=== PATIENT | male | born 1945 | race Caucasian/White ===

== ENCOUNTER → 2019-12-26 12:17 | Outpatient (BNVA) | payer MEDICARE, BC, SELFPAY | PROVIDERS: Family Provider Family Medicine; PCP Family Medicine; Referring Provider Family Medicine; Visit Provider Family Medicine | DX: E78.00 Pure hypercholesterolemia, unspecified (principal); E03.9 Hypothyroidism, unspecified; I10 Essential (primary) hypertension; E11.9 Type 2 diabetes mellitus without complications; I25.810 Atherosclerosis of coronary artery bypass graft(s) without angina pectoris | CPT/HCPCS: 80053; 80061; 83036; 84443; 85025 ==

== ENCOUNTER → 2021-01-11 10:13 | Outpatient (BNVA) | payer MEDICARE, BC, SELFPAY | PROVIDERS: Family Provider Family Medicine; PCP Family Medicine; Visit Provider Family Medicine | DX: E03.9 Hypothyroidism, unspecified (principal); E11.9 Type 2 diabetes mellitus without complications; E78.00 Pure hypercholesterolemia, unspecified; I10 Essential (primary) hypertension; Z00.00 Encounter for general adult medical examination without abnormal findings; Z68.32 Body mass index [BMI] 32.0-32.9, adult | CPT/HCPCS: 80053; 80061; 83036; 84443; 85025 ==

== ENCOUNTER → 2021-08-10 10:29 | Outpatient (BNVA) | payer MEDICARE, BC, SELFPAY | PROVIDERS: Family Provider Family Medicine; PCP Family Medicine; Visit Provider Family Medicine | DX: I10 Essential (primary) hypertension (principal); E11.9 Type 2 diabetes mellitus without complications; E03.9 Hypothyroidism, unspecified; E78.00 Pure hypercholesterolemia, unspecified | CPT/HCPCS: 80053; 83036; 85025 ==

== ENCOUNTER 2021-11-09 08:41 | Emergency (ER) | payer MEDICARE, BC, SELFPAY ==
[2021-11-09 08:48] VITALS: BP 88/56; PULSE 55; RESP 18; O2SAT 99; BMI 29.5
[2021-11-09 09:29] VITALS: BP 119/72; PULSE 45; RESP 15; O2SAT 96
--- NOTE | 2021-11-09 09:34 | ECG_ITS ---
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 Measurements Intervals [place] Rate: 50 P: MD: QRS: 12 QRSD: 106 T: 166 QT: 444 QTc: 409 Interpretive Statements ATRIAL FIBRILLATION WITH SLOW VENTRICULAR RESPONSE LOW QRS VOLTAGE IN PRECORDIAL LEADS [QRS DEFLECTION < 1.0 mV IN CHEST LEADS] POSSIBLE RIGHT VENTRICULAR CONDUCTION DELAY [RSR (QR) IN V1/V2] ANTERIOR MYOCARDIAL INFARCTION , PROBABLY OLD [40+ ms Q WAVE AND/OR ST/T ABNORMALITY IN V3/V4] Compared to ECG 10/01/2017 15:22:03 Low QRS voltage now present Sinus rhythm no longer present Myocardial infarct finding still present Electronically Signed On 11-10-2021 5:33:03 AOC AIRSPACE CONTROL OFFICER by Cherry Toscano M.D. [id number]
--- NOTE | 2021-11-09 09:34 | XR_ITS ---
WS: [id number] PORTABLE CHEST HISTORY: chest pain COMPARISON: 10/01/2017 Lungs are clear and well expanded. No pleural effusion or pneumothorax. Cardiac size: Normal. Mediastinum/Aorta: Normal mediastinum. No osseous abnormality seen. XR/XR chest 1V portable [id number] IMPRESSION: Unremarkable portable chest.
[2021-11-09 09:56] LABS: Basophils # 0.1 10^3/uL (0.0-0.1); Basophils % 0.8 %; Eosinophils # 0.1 10^3/uL (0.0-0.8); Eosinophils % 0.8 %; Hematocrit 38.3 % (42.0-52.0); Hemoglobin 12.4 g/dL (11.7-16.6); Lymphocytes # 1.4 10^3/uL (0.8-4.8); Lymphocytes % 13.2 %; Mean Corpuscular HGB Conc 32.4 g/dL (30.0-36.0); Mean Corpuscular Hemoglobin 29.4 pg (28.0-34.0); Mean Corpuscular Volume 90.8 fl (80-94); Mean Platelet Volume 12.1 fL (7.4-10.4); Monocytes # 0.9 10^3/uL (0.2-0.9); Monocytes % 8.2 %; Neutrophils # 8.13 10^3/uL (1.8-7.7); Neutrophils % 76.3 %; Nucleated Red Blood Cells % 0 %; Platelet Count 186 10^3/cmm (130-400); Red Blood Count 4.22 10^6/uL (4.1-5.3); Red Cell Distribution Width 13.6 % (12.1-15.1); White Blood Count 10.6 10^3/uL (4.0-10.0)
[2021-11-09] MEDS: aspirin 81 mg Chew Tablet 324 MG PO (10:00)
[2021-11-09 10:22] LABS: Troponin(5th) Baseline 67 ng/L (0-15)
[2021-11-09 10:28] LABS: Alanine Aminotransferase 25 U/L (0-41); Albumin Level 4.2 g/dL (3.5-5.2); Alkaline Phosphatase 60 IU/L (40-130); Aspartate Amino Transferase 16 U/L (0-40); Blood Urea Nitrogen 48 mg/dL (8-23); Carbon Dioxide 21 mmol/L (22-29); Chloride 95 mmol/L (98-107); Creatine Phosphokinase 59 U/L (39-308); Globulin 2.6 g/dL (1.3-4.6); Glucose 202 mg/dL (65-115); NT Pro B Type Natriuretic Pept 3460 pg/mL (0-125); Osmolality Calculated 296 mOsm/kg (285-295); Sodium 134 mmol/L (136-145); Total Bilirubin 0.9 mg/dL (0.15-1.2); Total Protein 6.8 g/dL (6.6-8.7)
[2021-11-09 10:29] LABS: Creatinine Clr Calc Pharmacy 22.5463
[2021-11-09 10:30] LABS: Anion Gap 22.9 (5-19); Potassium 4.9 mmol/L (3.5-5.1)
--- NOTE | 2021-11-09 11:34 | ECG_ITS ---
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 Measurements Intervals [place] Rate: 45 P: 73 MI: 179 QRS: -20 QRSD: 103 T: 170 QT: 464 QTc: 403 Interpretive Statements SINUS BRADYCARDIA WITH SINUS ARRHYTHMIA POSSIBLE RIGHT VENTRICULAR CONDUCTION DELAY [RSR (QR) IN V1/V2] POSSIBLE ANTERIOR MYOCARDIAL INFARCTION , PROBABLY OLD MODERATE T-WAVE ABNORMALITY, CONSIDER LATERAL ISCHEMIA Compared to ECG 11/09/2021 08:57:58 T-wave abnormality now present Possible ischemia now present Atrial fibrillation no longer present Myocardial infarct finding still present Electronically Signed On 11-09-2021 13:05:07 VOICE TEACHER by Cherry Toscano M.D. [id number]
--- NOTE | 2021-11-09 11:41 | ED_ITS ---
HPI - Chest Pain General: Chief Complaint: Chest Pain Stated Complaint: Chest Discomfort, Weakness, Dizziness Time Seen by Provider: 11/09/21 09:17 History of Present Illness: HPI narrative: 76-year-old male presents to the emergency room with complaint of vague chest discomfort. Worse when exerts himself associated with some shortness of breath no recent medication changes. Patient has a history of hypertension and diabetes mellitus. MD complaint: chest discomfort Pertinent past history: coronary artery disease Onset (ago): day(s) Timing of current episode: episodic Onset: during exertion Pain location: left chest Pain radiation: none Severity: mild Quality: aching Relieving factors: nothing Exacerbating factors: nothing Associated symptoms: Deny abdominal pain, diaphoresis, dyspnea, fever(s), leg edema, nausea, palpitations, sense of impending doom, syncope or vomiting Treatment prior to arrival: none Review of Systems Const: Denies: fever(s) or diaphoresis ENMT: Denies: throat pain, ear or mastoid pain, nasal discharge or nasal congestion Card: Denies: palpitations or syncope Resp: Denies: dyspnea GI: Denies: abdominal pain, nausea or vomiting : Denies: flank pain, dysuria, urinary frequency or urinary urgency Skin/Breast: Denies: rash or pruritus PFSH ED PFSH: Medical History Acquired hypothyroidism Diabetes Hypercholesteremia Hypertension Surgical History History of coronary angioplasty Social History Smoking and tobacco status: never smoked Alcohol intake: never Physical Exam Const: COMMON NORMALS: no acute distress GENERAL APPEARANCE: cooperative and comfortable ORIENTATION/CONSCIOUSNESS: Yes awake, Yes oriented to person, Yes oriented to place and Yes oriented to time HENMT: COMMON NORMALS: normocephalic, atraumatic and hearing grossly normal bilaterally HEAD & SCALP: normocephalic and atraumatic Resp: COMMON NORMALS: normal respiratory effort, No retractions, No use of accessory muscles and clear to auscultation bilaterally AUSCULTATION: clear to auscultation bilaterally Cardio: COMMON NORMALS: No murmurs present (Cardio) RATE: bradycardic GI: COMMON NORMALS: Soft to palpation and No hepatosplenomegaly present AUSCULTATION: Yes normoactive bowel sounds PALPATION: Yes Soft to palpation, No Tenderness to palpation present (GI), No Guarding due to palpation present (GI) and Yes No hepatosplenomegaly present Extremity: COMMON NORMALS: normal to inspection, capillary refill normal, no clubbing, cyanosis or edema, no calf tenderness and no pedal edema Neuro: SENSORIUM/ORIENTATION: Yes oriented to person, Yes oriented to place and Yes oriented to time Skin: COMMON NORMALS: no rashes or lesions noted GENERAL SKIN EXAM: no rashes or lesions noted Course Vital Signs: Vital signs: Vital Signs Pulse Rate 45 L 11/09/21 09:29 Respiratory Rate 15 11/09/21 09:29 Blood Pressure 119/72 11/09/21 09:29 Pulse Oximetry 96 11/09/21 09:29 MDM - Chest Pain MDM Narrative: Medical decision making narrative: Patient is having medication side effects as well as acute kidney injury. Much of this is centered around his medications. Were going to decrease his carvedilol to 3.125 twice daily decrease his metformin to 500 twice daily stop his lisinopril hydrochlorothiazide and and instead put him on lisinopril 10 mg once daily. Long discussion of the patient and his family that in most occasions we would admit him to observation watch him overnight and make these medication changes and reevaluate in the morning. However there is a critical shortage of beds and he would end up staying overnight in the emergency room. We discussed outpatient treatment options to accomplish the same thing and he would prefer to do that I also contacted his primary care doctor Dr. Carranza and we discussed that we are both in agreement with the medication changes and he confirms that Dr. Carranza would be able to follow-up with the patient within the next day or 2. Reviewed the entire plan of the patiently wrote out the medication changes on his discharge instructions he expresses understanding he is to return if he has any further problems. Lab Data: Labs: Lab Results 11/09/21 11/09/21 11/09/21 09:40 09:40 09:40 WBC 10.6 10^3/uL H 10 ^3/uL (4.0-10.0) RBC 4.22 10^6/uL 10^6 /uL (4.1-5.3) Hgb 12.4 g/dL g/dL (11.7-16.6) Hct 38.3 % L % (42.0-52.0) MCV 90.8 fl fl (80-94) MCH 29.4 pg pg (28.0-34.0) MCHC 32.4 g/dL g/dL (30.0-36.0) RDW 13.6 % % (12.1-15.1) Plt Count 186 10^3/cmm 10^3 /cmm (130-400) MPV 12.1 fL H fL (7.4-10.4) Neut % (Auto) 76.3 % % Lymph % (Auto) 13.2 % % [place] % (Auto) 8.2 % % Eos % (Auto) 0.8 % % Baso % (Auto) 0.8 % % Neut # (Auto) 8.13 10^3/uL H 10 ^3/uL (1.8-7.7) Lymph # (Auto) 1.4 10^3/uL 10^3/ uL (0.8-4.8) [place] # (Auto) 0.9 10^3/uL 10^3/ uL (0.2-0.9) Eos # (Auto) 0.1 10^3/uL 10^3/ uL (0.0-0.8) Baso # (Auto) 0.1 10^3/uL 10^3/ uL (0.0-0.1) Nucleated RBC % (a uto) 0 % % Nucleated RBCs # 0.0 /100WBC /100W BC Sodium 134 mmol/L L mmol /L (136-145) Potassium 4.9 mmol/L mmol/L (3.5-5.1) Chloride 95 mmol/L L mmol/ L (98-107) Carbon Dioxide 21 mmol/L L mmol/ L (22-29) Anion Gap 22.9 H (5-19) BUN 48 mg/dL H mg/dL (8-23) Creatinine 3.2 mg/dL H mg/dL (0.7-1.2) GFR Calculation Not Reportable Glucose 202 mg/dL H mg/dL (65-115) Calculated Osmolal ity 296 mOsm/kg H mOs m/kg (285-295) Calcium 9.0 mg/dL mg/dL (8.5-10.5) Total Bilirubin 0.9 mg/dL mg/dL (0.15-1.2) AST 16 U/L U/L (0-40) ALT 25 U/L U/L (0-41) Alkaline Phosphata se 60 IU/L IU/L (40-130) Creatine Kinase 59 U/L U/L (39-308) Troponin T Baselin e 67 ng/L H ng/L (0-15) Troponin T 120 Min [place] Delta Troponin T NT-Pro-B Natriuret Pep 3460 pg/mL H pg/m L (0-125) Total Protein 6.8 g/dL g/dL (6.6-8.7) Albumin 4.2 g/dL g/dL (3.5-5.2) Globulin 2.6 g/dL g/dL (1.3-4.6) 11/09/21 11:43 WBC RBC Hgb Hct MCV MCH MCHC RDW Plt Count MPV Neut % (Auto) Lymph % (Auto) [place] % (Auto) Eos % (Auto) Baso % (Auto) Neut # (Auto) Lymph # (Auto) [place] # (Auto) Eos # (Auto) Baso # (Auto) Nucleated RBC % (a uto) Nucleated RBCs # Sodium Potassium Chloride Carbon Dioxide Anion Gap BUN Creatinine GFR Calculation Glucose Calculated Osmolal ity Calcium Total Bilirubin AST ALT Alkaline Phosphata se Creatine Kinase Troponin T Baselin e Troponin T 120 Min [place] 64.36 ng/L H ng/L (0-15) Delta Troponin T -2.64 ABS# L ABS# (0-10) NT-Pro-B Natriuret Pep Total Protein Albumin Globulin Discharge Plan Discharge Patient Disposition: Home Clinical Impression: Medication side effects, Bradycardia, THAI (acute kidney injury) Diabetes Qualifiers: Diabetes mellitus type: type 2 Diabetes mellitus extermination inspector insulin use: without extermination inspector use Diabetes mellitus complication status: with hyperglycemia Qualified Code(s): E11.65 - Type 2 diabetes mellitus with hyperglycemia CAD (coronary artery disease) Qualifiers: Coronary Disease-Associated Artery/Lesion type: unspecified vessel or lesion type [place] vs. transplanted heart: [place] heart Associated angina: without angina Qualified Code(s): I25.10 - Atherosclerotic heart disease of [place] coronary artery without angina pectoris Condition: Stable Prescriptions: New lisinopril 10 mg tablet 10 mg PO DAILY Qty: 30 RF: 0 Changed metformin 1,000 mg tablet 500 mg PO BID Qty: 180 RF: 1 Discontinued carvedilol 6.25 mg tablet See Rx Instructions .ROUTE .COMPLEX Qty: 180 RF: 3 lisinopril-hydrochlorothiazide 20-25 mg tablet See Rx Instructions .ROUTE .COMPLEX Qty: 90 RF: 1 No Action aspirin [Adult Aspirin Regimen] 81 mg tablet,delayed release (DR/EC) 81 mg PO DAILY RF: 0 carvedilol 3.125 mg tablet 3.125 mg PO BID Qty: 180 RF: 1 glimepiride 4 mg tablet 4 mg PO BID 90 Days Qty: 180 RF: 3 levothyroxine 112 mcg tablet 112 mcg PO DAILY Qty: 90 RF: 3 sitagliptin 100 mg tablet 100 mg PO DAILY Qty: 90 RF: 3 atorvastatin 20 mg tablet 20 mg PO DAILY 90 Days Qty: 90 RF: 3 clopidogrel 75 mg tablet 75 mg PO DAILY 90 Days Qty: 90 RF: 3 Discharge Orders: Discharge ED (Routine); Ordered 11/09/21 Ordered By: Michael Caicedo Referrals: Cynthia Carranza MD [Primary Care Provider] - Discharge Diet: Usual diet Discharge Activity: Limit activity as instructed Patient Instructions: Opioid Safety Activity Restrictions/Additional Instructions: Follow-up with Dr. Carranza at his office tomorrow at 11:00. Call first thing in the morning to his office to confirm. Make the above medication changes as written. You will need to have a repeat blood testing when you see Dr. Carranza he will arrange for that. If you have any further problems return to the emergency room. Coding Level of Care Code ED Powdered Sugar Supervisor for Killian Fwd Exam Detailed
[2021-11-09] MEDS: sodium chloride 0.9% 500 ML 999 ML IV (11:59)
[2021-11-09 12:14] LABS: Troponin 5 2HR 64.36 ng/L (0-15)
[2021-11-09 12:18] LABS: Troponin 5 2HR Delta -2.64 ABS# (0-10)
== END 2021-11-09 14:47 | disposition home or self-care (01) ==
PROVIDERS: Emergency Provider Family Medicine; PCP Family Medicine
DX: E11.65 Type 2 diabetes mellitus with hyperglycemia (principal); I25.10 Atherosclerotic heart disease of native coronary artery without angina pectoris; R00.1 Bradycardia, unspecified; N17.9 Acute kidney failure, unspecified; T50.905A Adverse effect of unspecified drugs, medicaments and biological substances, initial encounter; Z79.84 Long term (current) use of oral hypoglycemic drugs; Z79.02 Long term (current) use of antithrombotics/antiplatelets; Z79.82 Long term (current) use of aspirin; I10 Essential (primary) hypertension
CPT/HCPCS: 71045; 80053; 82550; 83880; 84484; 85025; 93005; 96360; 99284; 99291; J7040

== ENCOUNTER → 2021-11-11 13:12 | Outpatient (BNVA) | payer MEDICARE, BC, SELFPAY | PROVIDERS: PCP Family Medicine; Visit Provider Family Medicine | DX: I25.10 Atherosclerotic heart disease of native coronary artery without angina pectoris (principal); I10 Essential (primary) hypertension; R00.1 Bradycardia, unspecified; E11.65 Type 2 diabetes mellitus with hyperglycemia | CPT/HCPCS: 80048; 83880; 84484; 85025 ==

== ENCOUNTER 2021-11-19 13:51 | Outpatient (CLI) | payer MEDICARE, BC, SELFPAY ==
--- NOTE | 2021-11-19 14:15 | USCV_ITS ---
Gordy Fiore Age: 76 Gender: M : 1945 Exam Date: 11/19/2021 14:18 Ordering Phys: Cynthia Carranza MD Technologist: BLANQUITA [place] [facility] [place]: CHEST PAIN ER VISIT W ELEVATED MARKERS BP: 122 / 80 HR: 55 Rhythm: Sinus Technical Quality: Adequate MEASUREMENTS (Male / Female) Normal Values 2D ECHO LV Diastolic Diameter PLAX 4.9 cm 4.2 - 5.9 / 3.9 - 5.3 cm LV Systolic Diameter PLAX 4.6 cm IVS Diastolic Thickness 0.5 cm 0.6 - 1.0 / 0.6 - 0.9 cm IVS Systolic Thickness 0.5 cm LVPW Diastolic Thickness 1.5 cm 0.6 - 1.0 / 0.6 - 0.9 cm LVPW Systolic Thickness 1.7 cm LVOT Diameter 2.0 cm LV Ejection Fraction 2D Teich 15.8 % LV Ejection Fraction MOD 2C 19.9 % LV Ejection Fraction 2C AL 19.1 % LA Diameter 3.6 cm LA Width 4.2 cm LA Height 5.3 cm RA Width 4.2 cm RA Height 4.8 cm Aorta at Sinotubular Diameter 2.6 cm M-MODE Aortic Annulus Diameter 2.4 cm LA Ao Ratio MM 1.6 MV E Point Septal Separation 1.9 cm DOPPLER AV Peak Velocity 100.0 cm/s LVOT Peak Velocity 84.3 cm/s AV Area Cont Eq vti 2.7 cm squared AV Area Cont Eq pk 2.8 cm squared MV Area PHT 5.6 cm squared Mitral E to A Ratio 3.4 MV E' Velocity 47.0 cm/s Mitral E to LV E' Lateral Ratio 17.9 TR Peak Velocity 225.9 cm/s TR Peak Gradient 20.4 mmHg TR Mean Velocity 174.6 cm/s TR Mean Gradient 13.5 mmHg TR Velocity Time Integral 69.9 cm Right Atrial Pressure 3.0 mmHg Pulmonary Artery Systolic Pressu 23.4 mmHg RV Acceleration Time 0.1 s RV Ejection Time 0.3 s RV AcT/ET 0.3 FINDINGS Left Ventricle Moderately increased left ventricular cavity size. Severely decreased left ventricular systolic function. There appeared to be mid to distal anterior apical and distal lateral wall severe hypokinesis.. Left ventricular ejection fraction is estimated at 20 %. Right Ventricle The right ventricle is normal in size and function. Right Atrium The right atrium is normal in size. Left Atrium The left atrium is normal in size. Mitral Valve Moderately thickened mitral valve. Mild mitral annular calcification. No mitral valve stenosis. Aortic Valve Severe aortic valve calcification. No aortic valve stenosis. No aortic valve regurgitation. Tricuspid Valve Structurally normal tricuspid valve without significant stenosis or regurgitation. Pulmonary artery systolic pressure is normal. Pulmonic Valve Structurally normal pulmonic valve without significant stenosis. There is no pulmonic regurgitation. Pericardium Normal pericardium without effusion. Aorta Normal ascending aorta dimension. CONCLUSIONS 1-Moderately increased left ventricular cavity size. Severely decreased left ventricular systolic function. There appeared to be mid to distal anterior apical and distal lateral wall severe hypokinesis.. Left ventricular ejection fraction is estimated at 20 %. 2-Moderately thickened mitral valve. Mild mitral annular calcification. No mitral valve stenosis. 3-Severe aortic valve calcification. No aortic valve stenosis. No aortic valve regurgitation. 4-Structurally normal tricuspid valve without significant stenosis or regurgitation. Pulmonary artery systolic pressure is normal. 5-There is no pericardial effusion. 6-Right atrial pressure is around 5 mm of mercury. 7-There are no prior echocardiogram studies to compare. Discussed results with Dr. Carranza over the phone today. Renetta Villarreal MD (Electronically Signed) Final Date: 20 November 2021 18:22 S
== END 2021-11-19 13:52 | disposition home or self-care (01) ==
LOC: RAD 13:58
PROVIDERS: PCP Family Medicine; Visit Provider Family Medicine
DX: R07.9 Chest pain, unspecified (principal); I08.0 Rheumatic disorders of both mitral and aortic valves
CPT/HCPCS: 93306

== ENCOUNTER → 2021-11-23 08:53 | Outpatient (BNVA) | payer MEDICARE, BC, SELFPAY | PROVIDERS: PCP Family Medicine; Visit Provider Family Medicine | DX: I25.10 Atherosclerotic heart disease of native coronary artery without angina pectoris (principal); N17.9 Acute kidney failure, unspecified; I10 Essential (primary) hypertension | CPT/HCPCS: 80053; 83880; 84484; 85025 ==

== ENCOUNTER → 2021-12-02 09:50 | Outpatient (BNVA) | payer MEDICARE, BC, SELFPAY | PROVIDERS: PCP Family Medicine; Referring Provider Internal Medicine Cardiovascular Disease; Visit Provider Internal Medicine Cardiovascular Disease | DX: I50.9 Heart failure, unspecified (principal); R06.02 Shortness of breath; Z20.822 Contact with and (suspected) exposure to COVID-19 | CPT/HCPCS: 80048; 85025; 85610; 87635 ==

== ENCOUNTER 2021-12-04 11:54 | Inpatient (IN) | payer MEDICARE, BC, SELFPAY ==
[2021-12-04] VITALS (80 sets, daily range): BP systolic 101–153; BP diastolic 58–100; PULSE 60–107; RESP 10–42; TEMP 36.3; O2SAT 89–100; BMI 34.4
--- NOTE | 2021-12-04 11:59 | XRR_ITS ---
PROCEDURE INFORMATION: Exam: XR Chest Exam date and time: 12/04/2021 11:59 AM Age: 76 years old Clinical indication: Angina pectoris; Patient HX: Chest pain TECHNIQUE: Imaging protocol: XR of the chest. Views: 1 view. COMPARISON: CR XR chest 1V portable [id number] 11/09/2021 10:09 AM FINDINGS: Lungs: Unremarkable. No consolidation. Pleural spaces: Unremarkable. No pleural effusion. No pneumothorax. Heart/Mediastinum: Unremarkable. No cardiomegaly. Bones/joints: Unremarkable. XR/XR chest 1V portable [id number] IMPRESSION: No acute findings.
--- NOTE | 2021-12-04 11:59 | ECG_ITS ---
[facility] Test Date: 2021-12-04 Pat Name: Gordy Fiore Department: Room: Gender: Male Video Manager: : 1945 Requested By: Madi Meade Order Number: [id number] Antonio MD: MALA TINEO Measurements Intervals [place] Rate: 102 P: [place]: QRS: -52 QRSD: 122 T: 125 QT: 341 QTc: 446 Interpretive Statements ATRIAL FIBRILLATION WITH RAPID VENTRICULAR RESPONSE POSSIBLE RIGHT VENTRICULAR CONDUCTION DELAY [RSR (QR) IN V1/V2] POSSIBLE ANTERIOR MYOCARDIAL INFARCTION , OF INDETERMINATE AGE [30 ms Q WAVE IN V3/V4, OR R < 0.2 mV IN V4] INFERIOR MYOCARDIAL INFARCTION , PROBABLY OLD [40+ ms Q WAVE AND/OR ST/T ABNORMALITY IN II/aVF] Compared to ECG 11/09/2021 11:17:54 Sinus bradycardia no longer present Sinus arrhythmia no longer present T-wave abnormality no longer present Possible ischemia no longer present Myocardial infarct finding still present Electronically Signed On 12-04-2021 17:44:38 TARGET SETTER by MALA TINEO [id number]
--- NOTE | 2021-12-04 12:13 | W.ED.CHESTPA ---
HPI - Chest Pain General: Chief Complaint: ER Hold Stated Complaint: Chest Pain Time Seen by Provider: 12/04/21 12:13 History of Present Illness: Mr Fiore is a 76-year-old gentleman with significant past medical history of hypertension, hyperlipidemia, hypothyroidism, diabetes, PA status post PCI, and recent diagnosis of heart failure with reduced ejection fraction presenting the emergency department due to concern of chest discomfort and volume overload. He was seen after a somewhat prolonged period of lost to follow-up time by Dr. Villarreal in cardiology clinic. He was noted to show signs of volume overload and initially trialed on Lasix. He reports 20 pounds overall fluid gain which improved to about 8 pounds increased from baseline with medication however he experienced decreased renal function and so the Lasix was held. He reports over the past 2 days experiencing recurrence of fluid. He has associated shortness of breath and today experienced mild chest discomfort across the chest with radiation down the arm. No other typical associated cardiac features. He denies infectious symptoms. Symptom intensity was moderate and is currently mild. Symptoms exacerbated by exertion and laying flat. Otherwise has been compliant with medication regimen however he to has not taken his medications today. No other specific exacerbating or alleviating factors identified. Of note, the patient's decline has been relatively rapid, he reports being able to complete normal daily tasks well including going deer hunting in October without difficulty. Onset (ago): hour(s) Timing of current episode: constant Prior episodes: No (Rare prior episodes of chest pain) Onset: during rest Pain location: substernal Pain radiation: left arm Severity: moderate Quality: similar to prior PA (Similar to first PA) and other Relieving factors: nothing Exacerbating factors: nothing Context: other Associated symptoms: Reports leg edema and other Treatment prior to arrival: none Review of Systems General: Reports: 10 or more systems reviewed and unremarkable except in HPI and below PFSH ED PFSH: Medical History (Updated 12/04/21 @ 21:23 by Renetta Koo MD) Acquired hypothyroidism Atrial fibrillation CHF (congestive heart failure) Diabetes Hypercholesteremia Hypertension Hypothalamic hypothyroidism Surgical History (Updated 12/04/21 @ 21:23 by Renetta Koo MD) History of coronary angioplasty History of hand surgery Social History Smoking and tobacco status: never smoked Alcohol intake: never Physical Exam Const: COMMON NORMALS: alert GENERAL APPEARANCE: cooperative and well developed HENMT: COMMON NORMALS: normocephalic, atraumatic, external ears normal and Normal external nose present HEAD & SCALP: normocephalic and atraumatic NOSE: Normal external nose present EXTERNAL EAR: Yes external ears normal Eye: COMMON NORMALS: conjunctivae normal CONJUNCTIVA: Yes conjunctivae normal SCLERA: sclerae normal Neck/C-Spine: COMMON NORMALS: supple GENERAL: Yes trachea midline Resp: COMMON NORMALS: normal respiratory effort EFFORT & INSPECTION: Yes able to speak in complete sentences AUSCULTATION: crackles Laterality: bilateral (Trace at the bases) Cardio: RATE: tachycardic RHYTHM: abnormal rhythm OTHER: 1+ bilateral pitting edema. GI: COMMON NORMALS: Soft to palpation PALPATION: Yes Soft to palpation and No Tenderness to palpation present (GI) PERCUSSION: normal to percussion Extremity: GENERAL: Yes normal exam except as noted and No edema Neuro: COMMON NORMALS: moves all extremities SENSORIUM/ORIENTATION: Yes alert and No Orientation impaired Psych: COMMON NORMALS: mental status grossly normal and Normal thought process present THOUGHT PROCESS: Normal thought process present Course ED course: - Patient was seen and evaluated by me at bedside - Patient placed on cardiac monitors, IV access obtained - Initial evaluation notable for evidence of peripheral volume overload as noted in exam, patient becomes significantly dyspneic with minimal exertion -Aspirin ordered - Labs notable for no leukocytosis. Metabolic panel with mild derangements, creatinine 1.6. Initial troponin elevated with pending repeat troponin. BNP elevated similar to prior. - Imaging notable for no lobar consolidation - Upon serial reexamination after treatment the patient was similar - I discussed this case with Dr. Villarreal of the cardiology service. Challenging situation as the patient has combined heart failure as well as a elevated creatinine and recent intolerance to diuresis in the outpatient setting. Additionally he is experiencing chest pain and is not low risk by heart score. Therefore, patient will be admitted to medicine service for diuresis and consideration of inpatient cardiac cath. - Based on patient history, evaluation, labs, and imaging as interpreted the most likely cause of the patient's condition is chest pain, new onset atrial fibrillation, shortness of breath with evidence of acute on chronic heart failure in the context of failed outpatient management - The results of ED evaluation were discussed with the patient including plan for admission due to requirement for level of care not available if discharged to prevent significant worsening/deterioration. - Admitting service was contacted and Dr Koo with hospitalist agreed to admit the patient - Patient was admitted without further deterioration or significant events. Note: Click bubbles or prepopulated irwin in note writing are used for assistance with data collection and billing and are inherently more limited than narrative and other text portions of this note. Please use narrative for additional clinical history and defer to narrative/free test for any case of contradictory information. If information appears in only free text or click bubble it should be considered present or absent as reported. Please contact note sba underwriter for clarifications of clinical information or contradictory information. MDM is a brief summary, contradictory or erroneous seeming information should be clarified and full note should be reviewed. Vital Signs: Vital signs: Vital Signs Temperature 98.4 F 12/05/21 15:21 Pulse Rate 73 12/05/21 15:21 Respiratory Rate 17 12/05/21 15:21 Blood Pressure 129/83 12/05/21 15:21 Pulse Oximetry 99 12/05/21 15:21 MDM - Chest Pain Medical Decision Making 76-year-old gentleman with history of combined heart failure with recent EF 20% as well as recent THAI secondary to attempt at outpatient diuresis presenting with increased weight gain and concern over shortness of breath with fluid overload. Patient does appear fluid overloaded on peripheral exam with 1-2+ pitting edema. Additionally patient noted to be in new onset A. fib. Discussed with cardiology. Patient to be admitted to the hospitalist service for further definitive management and consideration for cardiac cath Medical Records I reviewed the patient's medical records. Lab Data I reviewed the patient's lab results. : 12/05/21 02:15 12/05/21 02:15 Radiology Impressions Chest X-Ray 12/04/21 11:59 IMPRESSION: No acute findings. Laboratory Results WBC 9.4 10^3/uL (4.0-10.0) 12/04/21 12:57 RBC 4.24 10^6/uL (4.1-5.3) 12/04/21 12:57 Hgb 12.2 g/dL (11.7-16.6) 12/04/21 12:57 Hct 38.4 % (42.0-52.0) L 12/04/21 12:57 MCV 90.6 fl (80-94) 12/04/21 12:57 MCH 28.8 pg (28.0-34.0) 12/04/21 12:57 MCHC 31.8 g/dL (30.0-36.0) 12/04/21 12:57 RDW 13.8 % (12.1-15.1) 12/04/21 12:57 Plt Count 208 10^3/cmm (130-400) 12/04/21 12:57 MPV 12.2 fL (7.4-10.4) H 12/04/21 12:57 Neut % (Auto) 77.1 % 12/04/21 12:57 Lymph % (Auto) 13.0 % 12/04/21 12:57 Collier % (Auto) 7.3 % 12/04/21 12:57 Eos % (Auto) 1.0 % 12/04/21 12:57 Baso % (Auto) 1.0 % 12/04/21 12:57 Neut # (Auto) 7.25 10^3/uL (1.8-7.7) 12/04/21 12:57 Lymph # (Auto) 1.2 10^3/uL (0.8-4.8) 12/04/21 12:57 Collier # (Auto) 0.7 10^3/uL (0.2-0.9) 12/04/21 12:57 Eos # (Auto) 0.1 10^3/uL (0.0-0.8) 12/04/21 12:57 Baso # (Auto) 0.1 10^3/uL (0.0-0.1) 12/04/21 12:57 Nucleated RBC % (auto) 0 % 12/04/21 12:57 Nucleated RBCs # 0.0 /100WBC 12/04/21 12:57 Sodium 133 mmol/L (136-145) L 12/04/21 12:57 Potassium 3.4 mmol/L (3.5-5.1) L 12/04/21 12:57 Chloride 95 mmol/L (98-107) L 12/04/21 12:57 Carbon Dioxide 20 mmol/L (22-29) L 12/04/21 12:57 Anion Gap 21.4 (5-19) H 12/04/21 12:57 BUN 30 mg/dL (8-23) H 12/04/21 12:57 Creatinine 1.6 mg/dL (0.7-1.2) H 12/04/21 12:57 GFR Calculation Not Reportable 12/04/21 12:57 Glucose 253 mg/dL (65-115) H 12/04/21 12:57 Calculated Osmolality 291 mOsm/kg (285-295) 12/04/21 12:57 Calcium 8.5 mg/dL (8.5-10.5) 12/04/21 12:57 Magnesium 1.7 mg/dL (1.7-2.3) 12/04/21 12:57 Total Bilirubin 1.3 mg/dL (0.15-1.2) H 12/04/21 12:57 AST 27 U/L (0-40) 12/04/21 12:57 ALT 40 U/L (0-41) 12/04/21 12:57 Alkaline Phosphatase 118 IU/L (40-130) 12/04/21 12:57 Troponin T Baseline 87 ng/L (0-15) H 12/04/21 12:57 NT-Pro-B Natriuret Pep 3256 pg/mL (0-125) H 12/04/21 12:57 Total Protein 6.5 g/dL (6.6-8.7) L 12/04/21 12:57 Albumin 4.0 g/dL (3.5-5.2) 12/04/21 12:57 Globulin 2.5 g/dL (1.3-4.6) 12/04/21 12:57 Lipase 45 U/L (13-60) 12/04/21 12:57 EKG Data EKG 1: I personally reviewed and interpreted this EKG as follows: EKG interpretation date: 12/04/21 EKG interpretation time: 12:14 Interpretation: Twelve-lead EKG shows an irregular rhythm at a rate of 102. No TN interval, QRS duration 122, QTc 400. Left axis deviation. Interpretation: Atrial fibrillation versus sinus arrhythmia. Interventricular conduction delay EKG 2: I personally reviewed and interpreted this EKG as follows: EKG interpretation date: 12/04/21 EKG interpretation time: 13:55 Interpretation: Twelve-lead EKG shows an irregular rhythm at a rate of 79. No TN interval, QRS duration 122, QTc 399. Left axis deviation. Interpretation: Atrial fibrillation. Nonspecific ST segment abnormalities. Similar to prior. Discharge Plan Discharge Patient Disposition: Admitted As Inpatient Admit Provider: Renetta Koo Clinical Impression: CHF (congestive heart failure), Shortness of breath, Chest pain, Atrial fibrillation, new onset Condition: Stable Coding Level of Care Code ED Fruit Trimmer for Chg Fwd Exam Comprehensive
[2021-12-04] MEDS: aspirin 81 mg Chew Tablet 324 MG PO (12:40)
[2021-12-04 13:08] LABS: Basophils # 0.1 10^3/uL (0.0-0.1); Eosinophils # 0.1 10^3/uL (0.0-0.8); Hematocrit 38.4 % (42.0-52.0); Hemoglobin 12.2 g/dL (11.7-16.6); Lymphocytes # 1.2 10^3/uL (0.8-4.8); Mean Corpuscular HGB Conc 31.8 g/dL (30.0-36.0); Mean Corpuscular Hemoglobin 28.8 pg (28.0-34.0); Mean Corpuscular Volume 90.6 fl (80-94); Mean Platelet Volume 12.2 fL (7.4-10.4); Monocytes # 0.7 10^3/uL (0.2-0.9); Monocytes % 7.3 %; Neutrophils # 7.25 10^3/uL (1.8-7.7); Neutrophils % 77.1 %; Nucleated Red Blood Cells % 0 %; Platelet Count 208 10^3/cmm (130-400); Red Blood Count 4.24 10^6/uL (4.1-5.3); Red Cell Distribution Width 13.8 % (12.1-15.1); White Blood Count 9.4 10^3/uL (4.0-10.0)
[2021-12-04 13:32] LABS: Troponin(5th) Baseline 87 ng/L (0-15)
[2021-12-04 13:39] LABS: Alanine Aminotransferase 40 U/L (0-41); Alkaline Phosphatase 118 IU/L (40-130); Anion Gap 21.4 (5-19); Aspartate Amino Transferase 27 U/L (0-40); Blood Urea Nitrogen 30 mg/dL (8-23); Calcium 8.5 mg/dL (8.5-10.5); Carbon Dioxide 20 mmol/L (22-29); Chloride 95 mmol/L (98-107); Globulin 2.5 g/dL (1.3-4.6); Glucose 253 mg/dL (65-115); Lipase 45 U/L (13-60); NT Pro B Type Natriuretic Pept 3256 pg/mL (0-125); Osmolality Calculated 291 mOsm/kg (285-295); Potassium 3.4 mmol/L (3.5-5.1); Sodium 133 mmol/L (136-145); Total Bilirubin 1.3 mg/dL (0.15-1.2); Total Protein 6.5 g/dL (6.6-8.7)
--- NOTE | 2021-12-04 13:59 | ECG_ITS ---
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1945 Requested By: Madi Meade Order Number: [id number] Reading MD: MALA TINEO Measurements Intervals [place] Rate: 79 P: PA: QRS: -40 QRSD: 122 T: 124 QT: 365 QTc: 419 Interpretive Statements ATRIAL FIBRILLATION POSSIBLE RIGHT VENTRICULAR CONDUCTION DELAY [RSR (QR) IN V1/V2] POSSIBLE ANTERIOR MYOCARDIAL INFARCTION , OF INDETERMINATE AGE [30 ms Q WAVE IN V3/V4, OR R < 0.2 mV IN V4] INFERIOR MYOCARDIAL INFARCTION , PROBABLY OLD [40+ ms Q WAVE AND/OR ST/T ABNORMALITY IN II/aVF] Compared to ECG 12/04/2021 12:06:57 No significant changes Electronically Signed On 12-04-2021 17:46:03 FRETTED INSTRUMENT REPAIRER by MALA TINEO [id number] f
[2021-12-04 14:06] LABS: Magnesium 1.7 mg/dL (1.7-2.3)
[2021-12-04] MEDS: potassium chloride ER 20 mEq Tablet 60 MEQ PO (14:17)
[2021-12-04 15:35] LABS: Troponin 5 2HR 29.77 ng/L (0-15)
--- NOTE | 2021-12-04 15:38 | P.HP_ITS ---
Providers/Chief Complaint Admitting Physician: Renetta Koo MD Primary Care Provider: Cynthia Carranza MD Chief Complaint: Chest Pain History of Present Illness Gordy Fiore is a 76 year old male who has history of established coronary disease, 3 stents, last stent was placed in 2013, presented to the hospital with chief complaint of worsening shortness of breath and weight gain. Patient is stating that his dry weight is around 200 pounds and recently he has gained 20 pounds, for his worsening THAI Lasix was stopped by training systems officer. He recently has seen Dawn Pepper, echo was performed which showed ejection fraction around 20%, he was scheduled for staged procedure coronary angiogram on Monday next week. Because of his orthopnea, PND and chest pain he came to the hospital for further evaluation. Today patient was making gram for his mother when he start experiencing chest discomfort which was radiating towards his left arm. For last few weeks he has been sleeping in a reclined position he is not able to lay flat. He does not drink or smoke. Consider himself active for his age. He is vaccinated for COVID-19. In the ER he was diagnosed with decompensated heart failure, Dr. Villarreal was consulted, plan is to diurese him for coronary angiogram. Review of Systems Const: Denies: chills ENMT: Denies: throat pain Card: Reports: chest pain, edema, dyspnea on exertion and orthopnea Resp: Reports: dyspnea GI: Reports: abdominal pain : Denies: flank pain Skin/Breast: Denies: rash Neuro: Denies: headache(s) Psych: Denies: anxiety Endo: Denies: polyuria See/Lymph: Denies: easy bruising All/Imm: Denies: urticaria Medications/Allergies Home Medications Medication Instructions Recorded Confirmed Last Taken Type aspirin 81 mg tablet,delayed 81 mg PO DAILY 12/26/19 12/02/21 11/09/21 History release (Adult Aspirin Regimen) atorvastatin 20 mg tablet 20 mg PO DAILY 90 Days #90 tab 01/11/21 12/02/21 11/08/21 Rx clopidogrel 75 mg tablet 75 mg PO DAILY 90 Days #90 tab 02/11/21 12/02/21 11/09/21 Rx glimepiride 4 mg tablet 4 mg PO BID 90 Days #180 tab 08/10/21 12/02/2122 Rx levothyroxine 112 mcg tablet 112 mcg PO DAILY #90 tab 08/10/21 12/02/21 11/09/21 Rx sitagliptin 100 mg tablet 100 mg PO DAILY #90 tab 08/10/21 12/02/21 11/09/21 Rx carvedilol 3.125 mg tablet 3.125 mg PO BID #60 tab 11/22/21 12/02/21 Unknown Rx furosemide 40 mg tablet 40 mg PO DAILY #90 tab 11/22/21 12/02/21 Unknown Rx metformin 1,000 mg tablet 500 mg PO BID tab 11/22/21 12/02/21 Unknown History potassium chloride 20 mEq 20 meq PO DAILY #90 tab 11/22/21 12/02/21 Unknown Rx tablet,extended release nitroglycerin 0.4 mg sublingual 0.4 mg SUBLINGUAL Q5M #30 tab 12/02/21 12/02/21 Unknown Rx tablet Allergies Allergy/AdvReac Type Severity Reaction Status Date / Time No Known Allergies Allergy Verified 12/02/21 08:57 PFSH Acute PFSH: Medical History (Updated 12/04/21 @ 21:23 by Renetta Koo MD) Acquired hypothyroidism Atrial fibrillation CHF (congestive heart failure) Diabetes Hypercholesteremia Hypertension Hypothalamic hypothyroidism Surgical History (Updated 12/04/21 @ 21:23 by Renetta Koo MD) History of coronary angioplasty History of hand surgery Social History Smoking and tobacco status: never smoked Alcohol intake: never Vitals/I&O/Wt Last Vital Signs Temp 97.4 F L 12/04/21 12:08 Pulse 88 12/04/21 15:30 Resp 22 H 12/04/21 15:30 BP 117/73 12/04/21 15:30 Pulse Ox 99 12/04/21 15:30 Weight last 48 hrs Weight 98.883 kg Physical Exam Narrative: EXAM NARRATIVE: Patient was in semi-[place] position Saturating well on room air Clinically looks fluid overloaded 2+ pitting edema of legs S1, S2 Abdomen soft, distended, abdominal girth has increased Clinical signs of fluid overload Nonfocal neuro exam at the bedside Nonfocal neuro exam Appropriate mood and affect Data : 12/04/21 12:57 12/04/21 12:57 A&P Assessment and plan (1) Atrial fibrillation: Status: Acute (2) Chest pain: Status: Acute (3) Atrial fibrillation, new onset: Status: Acute (4) Shortness of breath: Status: Acute (5) Acute renal failure: Status: Acute (6) CHF (congestive heart failure): Status: Acute (7) Diabetes: Status: Acute Qualifiers: Diabetes mellitus type: type 2 Diabetes mellitus long wall mining machine tender insulin use: without long wall mining machine tender use Diabetes mellitus complication status: with hyperglycemia Qualified Code(s): E11.65 - Type 2 diabetes mellitus with hyperglycemia (8) Hypercholesteremia: Status: Acute (9) Acquired hypothyroidism: Status: Acute (10) Hypertension: Status: Acute Qualifiers: Hypertension type: essential hypertension Qualified Code(s): I10 - Essential (primary) hypertension Plan Acute on chronic systolic congestive heart exacerbation Weight gain of 20 pounds Start IV diuresis Reduced action fraction heart failure Patient will need coronary angiogram He does have history of sluggish coronary disease Clinically stable Measure input and output Monitor for electrolyte imbalance He will go for coronary angiogram once euvolemic No active shortness of breath however endorsing orthopnea PND THAI related to cardiorenal prerenal anticipating improvement with diuresis Consistent carb diet for type 2 diabetes, will add sliding scale Hypothyroidism: Continue levothyroxine Full code Cardiac consistent carb diet DVT prophylaxis Lovenox therapeutic regimen once daily because of high creatinine Attestations Medical Necessity Statement*: Anticipating more than 2 midnights in the hospital Time Spent in Patient Care: 35mins Coding Level of Care Code Acute Basketball Player for [facility] Fwd Diagnoses Atrial fibrillation I48.91 Chest pain R07.9 Atrial fibrillation, new onset I48.91 Shortness of breath R06.02 Acute renal failure N17.9 CHF (congestive heart failure) I50.9 Diabetes E11.65 Diabetes mellitus type: type 2 Diabetes mellitus correction insulin use: without correction use Diabetes mellitus complication status: with hyperglycemia Hypercholesteremia E78.00 Acquired hypothyroidism E03.9 Hypertension I10 Hypertension type: essential hypertension
[2021-12-04 16:15] LABS: Thyroid Stimulating Hormone 0.19 uIU/mL (0.27-4.20)
--- NOTE | 2021-12-04 17:59 | ECG_ITS ---
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: : 1945 Requested By: Madi Meade Order Number: [id number] Reading MD: MALA TINEO Measurements Intervals [place] Rate: 75 P: -50 AK: 137 QRS: -25 QRSD: 114 T: 106 QT: 363 QTc: 408 Interpretive Statements SINUS RHYTHM LOW QRS VOLTAGE IN EXTREMITY LEADS [QRS DEFLECTION < 0.5 mV IN LIMB LEADS] POSSIBLE RIGHT VENTRICULAR CONDUCTION DELAY [RSR (QR) IN V1/V2] ANTERIOR MYOCARDIAL INFARCTION , OF INDETERMINATE AGE [40+ ms Q WAVE AND/OR ST/T ABNORMALITY IN V3/V4] Compared to ECG 12/04/2021 13:47:50 Low QRS voltage now present Atrial fibrillation no longer present Myocardial infarct finding still present Electronically Signed On 12-05-2021 19:20:13 KRAFT DIGESTER OPERATOR by MALA TINEO [id number]
--- NOTE | 2021-12-04 19:00 | PM.CONSULT ---
Providers/Reason For Consult Consulting Physician/Specialty*: Cardiology Reason for Consult*: Worsening of shortness of breath PND orthopnea heart failure symptoms LV dysfunction and renal Requesting Physician: Dr. Epperson Attending Physician: Renetta Koo MD Primary Care Provider: Cynthia Carranza MD History of Present Illness History of Present Illness Gordy Fiore is a 76 year old male past medical history significant for coronary artery disease history of PCI in 2013 questionable compliance was seen by me in the office couple of weeks ago for weight gain and worsening of shortness of breath PND orthopnea LV dysfunction and worsening of heart failure symptoms. Lasix was increased but patient continues to do worse. He was scheduled to undergo left heart cath for worsening of heart failure and LV function dysfunction however he ended up in the ER with worsening of symptoms. It is the reason we have been asked to assess him. Review of Systems General: Reports: 10 or more systems reviewed and unremarkable except in HPI and below Medications/Allergies Home Medications Medication Instructions Recorded Confirmed Last Taken Type aspirin 81 mg tablet,delayed 81 mg PO DAILY 12/26/19 12/05/21 12/04/21 History release (Adult Aspirin Regimen) atorvastatin 20 mg tablet 20 mg PO DAILY 90 Days #90 tab 01/11/21 12/05/21 12/04/21 Rx clopidogrel 75 mg tablet 75 mg PO DAILY 90 Days #90 tab 02/11/21 12/05/21 12/04/21 Rx glimepiride 4 mg tablet 4 mg PO BID 90 Days #180 tab 08/10/21 12/05/21 12/04/21 Rx levothyroxine 112 mcg tablet 112 mcg PO DAILY #90 tab 08/10/21 12/05/21 12/04/21 Rx sitagliptin 100 mg tablet 100 mg PO DAILY #90 tab 08/10/21 12/05/21 12/04/21 Rx carvedilol 3.125 mg tablet 3.125 mg PO BID #60 tab 11/22/21 12/05/21 12/04/21 Rx furosemide 40 mg tablet 40 mg PO DAILY #90 tab 11/22/21 12/05/21 12/04/21 Rx metformin 1,000 mg tablet 500 mg PO BID tab 11/22/21 12/05/21 12/04/21 History potassium chloride 20 mEq 20 meq PO DAILY #90 tab 11/22/21 12/05/21 12/04/21 Rx tablet,extended release nitroglycerin 0.4 mg sublingual 0.4 mg SUBLINGUAL Q5M #30 tab 12/02/21 12/05/21 Unknown Rx tablet lisinopril 10 mg tablet 10 mg PO DAILY 12/05/21 12/05/21 12/04/21 History Allergies Allergy/AdvReac Type Severity Reaction Status Date / Time No Known Allergies Allergy Verified 12/02/21 08:57 PFSH Acute PFSH: Medical History (Updated 12/04/21 @ 21:23 by Renetta Koo MD) Acquired hypothyroidism Atrial fibrillation CHF (congestive heart failure) Diabetes Hypercholesteremia Hypertension Hypothalamic hypothyroidism Surgical History (Updated 12/04/21 @ 21:23 by Renetta Koo MD) History of coronary angioplasty History of hand surgery Social History Smoking and tobacco status: never smoked Alcohol intake: never Dietary Habits: Current diet type/program: regular Vitals/I&O/Wt Last Vital Signs Temp 97.4 F L 12/04/21 12:08 Pulse 88 12/04/21 15:30 Resp 22 H 12/04/21 15:30 BP 117/73 12/04/21 15:30 Pulse Ox 99 12/04/21 15:30 Weight last 48 hrs Weight 218 lb Physical Exam Chest: OTHER: GENERAL: Patient is alert, awake and oriented x3. NECK: No jugular vein distension. HEENT: No cyanosis. No icterus. No pallor. HEART: Irregularly S1 and S2. No murmur, rub or gallop. LUNGS: Reduced breath sound bilaterally. ABDOMEN: Soft, nontender and nondistended. Positive bowel sounds. No guarding, rebound or tenderness. CENTRAL NERVOUS SYSTEM: Grossly nonfocal. EXTREMITIES: Lower extremities with 1+ edema bilaterally. Data : 12/05/21 02:15 12/05/21 02:15 A&P Assessment and plan (1) Atrial fibrillation: Patient is rate controlled continue current regimen Status: Acute (2) CHF (congestive heart failure): Patient appeared to be in decompensated systolic heart failure has increased abdominal girth, I will start diuresing him with IV Lasix 40 mg twice daily and 20 mg of potassium twice a day. Goal is 1 to 1.5 L negative, continue to monitor creatinine. Planning left heart cath once euvolemic and creatinine is within acceptable range Status: Acute (3) Acute renal failure: Acute on chronic secondary to cardiorenal. Due to worsening of heart failure, we will start diuresing the patient hopefully it will improve Status: Acute (4) Chest pain: I will add isosorbide. We will continue to monitor him. Carvedilol will also be started. Status: Acute Consult Attestations Medical Necessity Statement: I am expecting his stay to cross more than 2 midnights. Coding Level of Care Code New Pt Acute Hazardous Material Specialist for Chg Fwd Patient Type New History Detailed Exam Detailed Medical Decision Making Moderate Complexity Diagnoses Atrial fibrillation I48.91 CHF (congestive heart failure) I50.9 Acute renal failure N17.9 Chest pain R07.9
[2021-12-04 19:35] LABS: Troponin 5 6HR 115.5 ng/L (0-15); Troponin 5 6HR Delta 28.5 ng/L (0-12)
[2021-12-04] MEDS: potassium chloride ER 20 mEq Tablet PO (19:56)
[2021-12-04] MEDS: FUROsemide 10 mg/mL SDV 4mL 40 MG IVP (19:56)
[2021-12-04] MEDS: magnesium oxide 400 mg tablet PO (19:56)
[2021-12-04] MEDS: isosorbide mononitrate 20 mg Tablet PO (20:33)
[2021-12-04] MEDS: carvedilol 3.125 mg Tablet PO (20:33)
[2021-12-04] MEDS: enoxaparin 100 mg/mL Syringe SUBCUT (20:33)
[2021-12-05] VITALS (15 sets, daily range): BP systolic 114–142; BP diastolic 71–85; PULSE 21–73; RESP 12–73; TEMP 36.4–36.9; O2SAT 93–100
[2021-12-05 02:37] LABS: Basophils # 0.1 10^3/uL (0.0-0.1); Basophils % 0.7 %; Eosinophils # 0.1 10^3/uL (0.0-0.8); Eosinophils % 1.4 %; Hematocrit 35.4 % (42.0-52.0); Hemoglobin 11.4 g/dL (11.7-16.6); Lymphocytes # 1.5 10^3/uL (0.8-4.8); Lymphocytes % 16.6 %; Mean Corpuscular HGB Conc 32.2 g/dL (30.0-36.0); Mean Corpuscular Hemoglobin 29.2 pg (28.0-34.0); Mean Corpuscular Volume 90.5 fl (80-94); Mean Platelet Volume 12.3 fL (7.4-10.4); Monocytes # 0.9 10^3/uL (0.2-0.9); Monocytes % 10.5 %; Neutrophils # 6.22 10^3/uL (1.8-7.7); Neutrophils % 70.2 %; Nucleated Red Blood Cells % 0 %; Platelet Count 225 10^3/cmm (130-400); Red Blood Count 3.91 10^6/uL (4.1-5.3); White Blood Count 8.9 10^3/uL (4.0-10.0)
[2021-12-05 02:59] LABS: Anion Gap 17.1 (5-19); Blood Urea Nitrogen 34 mg/dL (8-23); Calcium 8.4 mg/dL (8.5-10.5); Carbon Dioxide 22 mmol/L (22-29); Chloride 98 mmol/L (98-107); Glucose 222 mg/dL (65-115); Magnesium 1.8 mg/dL (1.7-2.3); Osmolality Calculated 290 mOsm/kg (285-295); Potassium 4.1 mmol/L (3.5-5.1); Sodium 133 mmol/L (136-145)
[2021-12-05] MEDS: FUROsemide 10 mg/mL SDV 4mL 40 MG IVP (07:54)
[2021-12-05] MEDS: atorvastatin 40 mg Tablet 20 MG PO (09:32)
[2021-12-05] MEDS: aspirin 81 mg EC Tablet PO (09:32)
[2021-12-05] MEDS: clopidogrel 75 mg Tablet PO (09:32)
[2021-12-05] MEDS: carvedilol 3.125 mg Tablet PO ×2 (09:32→18:01)
[2021-12-05] MEDS: magnesium oxide 400 mg tablet PO ×2 (09:32→18:01)
[2021-12-05] MEDS: levothyroxine 112 mcg Tablet PO (09:32)
[2021-12-05] MEDS: isosorbide mononitrate 20 mg Tablet PO ×2 (09:32→18:01)
--- NOTE | 2021-12-05 11:29 | PC.NURSE ---
PATIENT RESTING IN BED. VISITOR AT BEDSIDE. NO FURTHER NEEDS AT THIS TIME.
--- NOTE | 2021-12-05 13:15 | PM.PN ---
Subjective Subjective: Interval history: There is no accurate input and output summary from yesterday patient is still in the ER No active complaints I discussed goals of diuresis with the patient, Creatinine worsened today I am planning to increase his diuretics and place a Casanova catheter for accurate output Vitals/I&O/Wt Last Vital Signs Temp 97.5 F L 12/05/21 09:30 Pulse 67 12/05/21 13:06 Resp 15 12/05/21 13:06 BP 142/79 12/05/21 13:06 Pulse Ox 94 12/05/21 13:06 Weight last 48 hrs Weight 98.883 kg Physical Exam Narrative: EXAM NARRATIVE: Patient laying in semi-Munguia position on room air doing well S1, S2 Abdominal girth Clinical signs of fluid overload Nonlabored breathing No audible stridor or wheezing Nonfocal neuro exam Data : 12/05/21 02:15 12/05/21 02:15 A&P Assessment and plan (1) Atrial fibrillation: Status: Acute (2) Chest pain: Status: Acute (3) Atrial fibrillation, new onset: Status: Acute (4) Shortness of breath: Status: Acute (5) Acute renal failure: Status: Acute (6) CHF (congestive heart failure): Status: Acute (7) Hypertension: Status: Acute Qualifiers: Hypertension type: essential hypertension Qualified Code(s): I10 - Essential (primary) hypertension (8) Acquired hypothyroidism: Status: Acute (9) Hypercholesteremia: Status: Acute (10) Diabetes: Status: Acute Qualifiers: Diabetes mellitus type: type 2 Diabetes mellitus detention insulin use: without detention use Diabetes mellitus complication status: with hyperglycemia Qualified Code(s): E11.65 - Type 2 diabetes mellitus with hyperglycemia Plan New onset A. fib: Rate controlled currently on once daily regimen of Lovenox because of high creatinine Systolic congestive heart failure exacerbation Patient will need coronary angiogram once he is euvolemic Place Casanova catheter Use Bumex 1 mg every 12 Hypothyroidism continue levothyroxine Full code Cardiac diet DVT prophylaxis Lovenox will suffice Attestations Medical Necessity Statement*: Continue medical management Time Spent in Patient Care: 15 Coding Level of Care Code Acute Tow Truck Operator for [facility] Fwd Diagnoses Atrial fibrillation I48.91 Chest pain R07.9 Atrial fibrillation, new onset I48.91 Shortness of breath R06.02 Acute renal failure N17.9 CHF (congestive heart failure) I50.9 Hypertension I10 Hypertension type: essential hypertension Acquired hypothyroidism E03.9 Hypercholesteremia E78.00 Diabetes E11.65 Diabetes mellitus type: type 2 Diabetes mellitus termite control technician insulin use: without termite control technician use Diabetes mellitus complication status: with hyperglycemia
[2021-12-05] MEDS: bumetanide 0.25 mg/mL SDV 4 mL 1 MG IVP (13:32)
--- NOTE | 2021-12-05 16:10 | PC.NURSE ---
blood glucose is 296
[2021-12-05 16:23] LABS: Glucose Point of Care 296 mg/dL (70-110)
--- NOTE | 2021-12-05 16:25 | PC.NURSE ---
admitted into room 106 from er at 1515.report received.sr on monitor.denies pain at present.nad noted.orientation to room environment.instructed to notify staff for any sob,chest pain,or for any concerns at all.pt verb understanding of instruction.
--- NOTE | 2021-12-05 17:57 | PC.NURSE ---
Patient began having an emesis episode, and a nose bleed making it look like he was coughing/vomiting blood. Nurses were informed and came into the room to asses the situation. Nose bleed has sense lightened to almost a stop.
[2021-12-05] MEDS: insulin lispro 100 unit/1 mL 15 UNIT SUBCUT (18:37)
--- NOTE | 2021-12-05 19:31 | PC.NURSE ---
construction rigger contacted me stating that pt had bloody nose and urine.she had just assisted pt to restroom.magdalena red blood noted in catheter.statlock intact on pt's thigh.pt states he did not feel limon pull while ambulating.left nare with brb.pt held head back and applied pressure..bleeding soon stopped.pt states he has had nose bleeds from left nostril for years..they slowed the last 10 years,but recently started up again.dr riggins notified.he ordered to hold 2030 dose of lovenox.will continue to observe.
--- NOTE | 2021-12-05 20:00 | PM.PN ---
Subjective Subjective: Interval history: Patient is not diuresing well he has traumatic catheterization and bleeding per urethra Vitals/I&O/Wt Last Vital Signs Temp 98 F 12/05/21 19:45 Pulse 70 12/05/21 19:45 Resp 18 12/05/21 19:45 BP 118/71 12/05/21 19:45 Pulse Ox 99 12/05/21 19:45 12/05/21 12/05/21 12/05/21 06:59 14:59 22:59 Output Total 340 / 340 Balance -340 / -340 Weight last 48 hrs Weight 233 lb 6.4 oz Weight 218 lb Physical Exam Chest: OTHER: GENERAL: Patient is alert, awake and oriented x3. NECK: No jugular vein distension. HEENT: No cyanosis. No icterus. No pallor. HEART: Irregularly S1 and S2. No murmur, rub or gallop. LUNGS: Reduced breath sound bilaterally. ABDOMEN: Soft, nontender and nondistended. Positive bowel sounds. No guarding, rebound or tenderness. CENTRAL NERVOUS SYSTEM: Grossly nonfocal. EXTREMITIES: Lower extremities with 1+ edema bilaterally. Cardio: OTHER: GENERAL: Patient is alert, awake and oriented x3. NECK: No jugular vein distension. HEENT: No cyanosis. No icterus. No pallor. HEART: Regular S1 and S2. No murmur, rub or gallop. LUNGS: Decreased breath bilaterally. ABDOMEN:distended. Positive bowel sounds. No guarding, rebound or tenderness. [Positive abdominal wall edema CENTRAL NERVOUS SYSTEM: Grossly nonfocal. EXTREMITIES: Lower extremities with 1+ edema bilaterally. Pulses palpable in the lower extremities, both dorsalis pedis and posterior tibial. Urinary Catheter Management: Casanova: Cath Placed During This Visit: yes Reason for Continuing Indwelling Catheter: Accurate Measurement of Urinary Output in Critically Ill Patients Urinary Catheter Date of Insertion: 12/05/21 Urinary Catheter Time of Insertion: 13:44 Data : 12/05/21 02:15 12/06/21 03:10 A&P Assessment and plan (1) Atrial fibrillation: Patient is rate controlled continue current regimen Status: Acute (2) CHF (congestive heart failure): Patient appeared to be in decompensated systolic heart failure has increased abdominal girth, I will start diuresing him with IV Lasix 40 mg twice daily and 20 mg of potassium twice a day. Goal is 1 to 1.5 L negative, continue to monitor creatinine. Planning left heart cath once euvolemic and creatinine is within acceptable range Patient not diuresing well I will add metolazone to the regimen Status: Acute (3) Acute renal failure: Acute on chronic secondary to cardiorenal. Due to worsening of heart failure, we will start diuresing the patient hopefully it will improve Status: Acute (4) Chest pain: I will add isosorbide. We will continue to monitor him. Carvedilol will also be started. 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
--- NOTE | 2021-12-05 20:13 | PC.NURSE ---
Around 2009: received verbal orders from Dr. Villarreal, Project Designer. See MAR.
[2021-12-05] MEDS: metOLazone 5 MG Tablet 2.5 MG PO (21:23)
[2021-12-05 21:42] LABS: Glucose Point of Care 305 mg/dL (70-110)
[2021-12-05] MEDS: hyDROXYzine 25 mg Capsule PO (23:49)
[2021-12-06] VITALS (7 sets, daily range): BP systolic 117–132; BP diastolic 62–76; PULSE 63–73; RESP 12–24; TEMP 36.6–37; O2SAT 94–98
[2021-12-06] MEDS: bumetanide 0.25 mg/mL SDV 4 mL 1 MG IVP ×2 (01:20→14:55)
[2021-12-06 04:12] LABS: Anion Gap 20.3 (5-19); Blood Urea Nitrogen 37 mg/dL (8-23); Calcium 9.1 mg/dL (8.5-10.5); Carbon Dioxide 20 mmol/L (22-29); Chloride 98 mmol/L (98-107); Glucose 155 mg/dL (65-115); Osmolality Calculated 290 mOsm/kg (285-295); Potassium 4.3 mmol/L (3.5-5.1); Sodium 134 mmol/L (136-145)
[2021-12-06 06:32] LABS: Glucose Point of Care 159 mg/dL (70-110)
[2021-12-06] MEDS: insulin lispro 100 unit/1 mL SUBCUT ×3 (07:39→17:51)
[2021-12-06] MEDS: clopidogrel 75 mg Tablet PO (07:44)
[2021-12-06] MEDS: magnesium oxide 400 mg tablet PO ×2 (07:44→17:50)
[2021-12-06] MEDS: atorvastatin 40 mg Tablet 20 MG PO (07:44)
[2021-12-06] MEDS: carvedilol 3.125 mg Tablet PO ×2 (07:44→17:50)
[2021-12-06] MEDS: levothyroxine 112 mcg Tablet PO (07:44)
[2021-12-06] MEDS: isosorbide mononitrate 20 mg Tablet PO ×2 (07:44→17:50)
[2021-12-06] MEDS: aspirin 81 mg EC Tablet PO (07:45)
--- NOTE | 2021-12-06 11:07 | PC.NURSE ---
pt's indwelling catheter with hematuria...a few small clots noted.irrigated with 50 cc sterile water x 4.a few small clots aspirated out.return of approx 200 cc pink output obtained.pt tolerated procedure well.
[2021-12-06 11:21] LABS: Glucose Point of Care 143 mg/dL (70-110)
--- NOTE | 2021-12-06 12:24 | PM.PN ---
Subjective Subjective: Interval history: Patient is feeling very lethargic, he was not able to sleep last night Cr 1.7 Vitals/I&O/Wt Last Vital Signs Temp 98.6 F 12/06/21 11:20 Pulse 63 12/06/21 11:20 Resp 19 H 12/06/21 11:20 BP 119/76 12/06/21 11:20 Pulse Ox 98 12/06/21 11:20 12/05/21 12/06/21 12/06/21 22:59 06:59 14:59 Intake Total 300 / 300 100 / 400 Output Total 340 / 340 1400 / 1740 500 / 500 Balance -40 / -40 -1300 / -1340 -500 / -500 Weight last 48 hrs Weight 105.868 kg Physical Exam Narrative: EXAM NARRATIVE: Patient is laying supine Orthopnea PND has improved Still fluid overloaded On room air S1, S2 Abdomen soft, distended, visceral obesity Nonfocal neuro exam No audible stridor or wheezing Urinary Catheter Management: Casanova: Cath Placed During This Visit: yes Reason for Continuing Indwelling Catheter: Accurate Measurement of Urinary Output in Critically Ill Patients Urinary Catheter Date of Insertion: 12/05/21 Urinary Catheter Time of Insertion: 13:44 Data : 12/05/21 02:15 12/06/21 03:10 A&P Assessment and plan (1) Atrial fibrillation: Status: Acute (2) Chest pain: Status: Acute (3) Atrial fibrillation, new onset: Status: Acute (4) Shortness of breath: Status: Acute (5) Acute renal failure: Status: Acute (6) CHF (congestive heart failure): Status: Acute (7) Hypertension: Status: Acute Qualifiers: Hypertension type: essential hypertension Qualified Code(s): I10 - Essential (primary) hypertension (8) Acquired hypothyroidism: Status: Acute (9) Hypercholesteremia: Status: Acute (10) Diabetes: Status: Acute Qualifiers: Diabetes mellitus type: type 2 Diabetes mellitus captain room service insulin use: without captain room service use Diabetes mellitus complication status: with hyperglycemia Qualified Code(s): E11.65 - Type 2 diabetes mellitus with hyperglycemia Plan Acute CHF exacerbation Systolic congestive heart failure Plan for angiogram once he is euvolemic Creatinine improving Negative fluid balance on 2 L Still fluid overloaded Plan to continue IV diuretics for 24 hours, will start chest with cardiology to see if they plan to do an angiogram on Monday For his hematuria and epistaxis, Lovenox held Asked nurse to manually irrigate his Casanova catheter which was placed for accurate output measurement A. fib without RVR, Rate controlled Holding Lovenox which was 1 today because of his high creatinine Normotensive Heart rate below 80s Doing well on room air Euglycemic Cardiac consistent carb diet DVT prophylaxis currently on hold SCDs Full code Attestations Medical Necessity Statement*: Continue medical management Time Spent in Patient Care: 20mins Coding Level of Care Code Acute Operator for [facility] Fwd Diagnoses Atrial fibrillation I48.91 Chest pain R07.9 Atrial fibrillation, new onset I48.91 Shortness of breath R06.02 Acute renal failure N17.9 CHF (congestive heart failure) I50.9 Hypertension I10 Hypertension type: essential hypertension Acquired hypothyroidism E03.9 Hypercholesteremia E78.00 Diabetes E11.65 Diabetes mellitus type: type 2 Diabetes mellitus chcf insulin use: without captain room service use Diabetes mellitus complication status: with hyperglycemia
[2021-12-06 16:48] LABS: Glucose Point of Care 143 mg/dL (70-110)
[2021-12-06] MEDS: metOLazone 5 MG Tablet 2.5 MG PO (17:50)
--- NOTE | 2021-12-06 18:39 | PC.NURSE ---
at 1600 urine in limon catheter collection appliance remains dark red in color.irrigated with 4-50 cc syringes loree sterile water,using aseptic technique.no blood clots noted.urine cleared to light pink while irrigation in progress...but returned to dark red soon after.dr frederick notified of status.he ordered to irrigate catheter every 8 hrs.
--- NOTE | 2021-12-06 19:42 | PM.PN ---
Subjective Subjective: Interval history: Patient says he has diuresed well, hematuria settling down Lovenox is on Vitals/I&O/Wt Last Vital Signs Temp 98.6 F 12/06/21 11:20 Pulse 68 12/06/21 16:00 Resp 21 H 12/06/21 16:00 BP 125/69 12/06/21 16:00 Pulse Ox 97 12/06/21 16:00 12/06/21 12/06/21 12/06/21 06:59 14:59 22:59 Intake Total 100 / 400 240 / 240 360 / 600 Output Total 1400 / 1740 500 / 500 650 / 1150 Balance -1300 / -1340 -260 / -260 -290 / -550 Physical Exam Chest: OTHER: GENERAL: Patient is alert, awake and oriented x3. NECK: No jugular vein distension. HEENT: No cyanosis. No icterus. No pallor. HEART: Irregularly S1 and S2. No murmur, rub or gallop. LUNGS: Reduced breath sound bilaterally. ABDOMEN: Soft, nontender and nondistended. Positive bowel sounds. No guarding, rebound or tenderness. CENTRAL NERVOUS SYSTEM: Grossly nonfocal. EXTREMITIES: Lower extremities with 1+ edema bilaterally. Cardio: OTHER: GENERAL: Patient is alert, awake and oriented x3. NECK: No jugular vein distension. HEENT: No cyanosis. No icterus. No pallor. HEART: Regular S1 and S2. No murmur, rub or gallop. LUNGS: Decreased breath bilaterally. ABDOMEN:distended. Positive bowel sounds. No guarding, rebound or tenderness. [Positive abdominal wall edema CENTRAL NERVOUS SYSTEM: Grossly nonfocal. EXTREMITIES: Lower extremities with 1+ edema bilaterally. Pulses palpable in the lower extremities, both dorsalis pedis and posterior tibial. Urinary Catheter Management: Casanova: Cath Placed During This Visit: yes Reason for Continuing Indwelling Catheter: Accurate Measurement of Urinary Output in Critically Ill Patients Urinary Catheter Date of Insertion: 12/05/21 Urinary Catheter Time of Insertion: 13:44 Data : 12/05/21 02:15 12/06/21 03:10 A&P Assessment and plan (1) Atrial fibrillation: Patient is rate controlled continue current regimen Status: Acute (2) CHF (congestive heart failure): Patient appeared to be in decompensated systolic heart failure has increased abdominal girth, I will start diuresing him with IV Lasix 40 mg twice daily and 20 mg of potassium twice a day. Goal is 1 to 1.5 L negative, continue to monitor creatinine. Planning left heart cath once euvolemic and creatinine is within acceptable range Patient not diuresing well I will add metolazone to the regimen Continue current diuresis with metolazone and IV Bumex or Lasix Status: Acute (3) Acute renal failure: Continue to monitor. 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
[2021-12-06] MEDS: enoxaparin 100 mg/mL Syringe SUBCUT (20:39)
[2021-12-06 20:40] LABS: Glucose Point of Care 150 mg/dL (70-110)
[2021-12-07] VITALS (8 sets, daily range): BP systolic 95–125; BP diastolic 54–77; PULSE 58–76; RESP 11–23; TEMP 36.6–37.2; O2SAT 95–98
[2021-12-07] MEDS: bumetanide 0.25 mg/mL SDV 4 mL 1 MG IVP (01:40)
--- NOTE | 2021-12-07 03:04 | PC.NURSE ---
at 0000 urine in limon catheter bag remains red in color. irrigated with 4-50 cc syringes of sterile water using aseptic technique. urine cleared to light pink while irrigation in progress, but returned to red soon after. Irrigation q 8 hrs. Next irrigation at 0800 am.
[2021-12-07 03:39] LABS: Basophils # 0.1 10^3/uL (0.0-0.1); Basophils % 0.9 %; Eosinophils # 0.1 10^3/uL (0.0-0.8); Eosinophils % 1.1 %; Hematocrit 32.8 % (42.0-52.0); Hemoglobin 10.8 g/dL (11.7-16.6); Lymphocytes # 2.1 10^3/uL (0.8-4.8); Lymphocytes % 22.2 %; Mean Corpuscular HGB Conc 32.9 g/dL (30.0-36.0); Mean Corpuscular Hemoglobin 28.7 pg (28.0-34.0); Mean Corpuscular Volume 87.2 fl (80-94); Mean Platelet Volume 12.5 fL (7.4-10.4); Monocytes # 0.9 10^3/uL (0.2-0.9); Monocytes % 9.6 %; Neutrophils # 6.11 10^3/uL (1.8-7.7); Neutrophils % 65.3 %; Nucleated Red Blood Cells % 0 %; Platelet Count 200 10^3/cmm (130-400); Red Blood Count 3.76 10^6/uL (4.1-5.3); Red Cell Distribution Width 13.6 % (12.1-15.1); White Blood Count 9.4 10^3/uL (4.0-10.0)
[2021-12-07 04:05] LABS: Anion Gap 15.8 (5-19); Blood Urea Nitrogen 38 mg/dL (8-23); Calcium 8.6 mg/dL (8.5-10.5); Carbon Dioxide 25 mmol/L (22-29); Chloride 94 mmol/L (98-107); Glucose 113 mg/dL (65-115); Osmolality Calculated 284 mOsm/kg (285-295); Sodium 132 mmol/L (136-145)
[2021-12-07 04:19] LABS: Potassium 2.8 mmol/L (3.5-5.1)
[2021-12-07] MEDS: lidocaine 1% 5 ML in potassium chloride premix 100 ML 25 ML IV (05:27)
[2021-12-07 06:28] LABS: Glucose Point of Care 118 mg/dL (70-110)
[2021-12-07] MEDS: magnesium oxide 400 mg tablet PO ×2 (09:18→18:30)
[2021-12-07] MEDS: potassium chloride ER 20 mEq Tablet 40 MEQ PO (09:18)
[2021-12-07] MEDS: isosorbide mononitrate 20 mg Tablet PO ×2 (09:18→18:30)
[2021-12-07] MEDS: clopidogrel 75 mg Tablet PO (09:19)
[2021-12-07] MEDS: atorvastatin 40 mg Tablet 20 MG PO (09:19)
[2021-12-07] MEDS: levothyroxine 112 mcg Tablet PO (09:19)
[2021-12-07] MEDS: aspirin 81 mg EC Tablet PO (09:19)
[2021-12-07] MEDS: carvedilol 3.125 mg Tablet PO ×2 (09:20→18:30)
--- NOTE | 2021-12-07 09:58 | PC.SOCIAL ---
IMM update IMM updated with patient and at bedside. Copy Pg 2 provided. Verbalized an understanding. Initialled, dated, timed, and placed in chart.
--- NOTE | 2021-12-07 10:50 | P.PN_ITS ---
Subjective Subjective: Interval history: -3 L balance on Bumex and metolazone Continue same regimen Might plan for angiogram on if he becomes euvolemic The deciding factor will be improvement in creatinine as she will be at risk of further worsening of his THAI, creatinine is still 1.7 No signs of contraction alkalosis Hypokalemia: Repleted Vitals/I&O/Wt Last Vital Signs Temp 97.9 F 12/07/21 03:56 Pulse 71 12/07/21 09:20 Resp 13 12/07/21 09:20 BP 125/74 12/07/21 09:20 Pulse Ox 95 12/07/21 09:20 12/06/21 12/07/21 12/07/21 22:59 06:59 14:59 Intake Total 720 / 960 500 / 1460 341 / 341 Output Total 1650 / 2150 1700 / 3850 1290 / 1290 Balance -930 / -1190 -1200 / -2390 -949 / -949 Physical Exam Narrative: EXAM NARRATIVE: Patient still clinically is fluid overloaded 2+ pitting edema of legs No orthopnea PND Laying flat Satting well on room air Abdomen distended, increase abdominal girth Nonfocal neuro exam EOMI, PERRLA Cooperative and pleasant Urinary Catheter Management: Casanova: Cath Placed During This Visit: yes Reason for Continuing Indwelling Catheter: Accurate Measurement of Urinary Output in Critically Ill Patients Urinary Catheter Date of Insertion: 12/05/21 Urinary Catheter Time of Insertion: 13:44 Data : 12/07/21 02:30 12/07/21 02:30 A&P Assessment and plan (1) Atrial fibrillation: Status: Acute (2) Chest pain: Status: Acute (3) Shortness of breath: Status: Acute (4) Atrial fibrillation, new onset: Status: Acute (5) Acute renal failure: Status: Acute (6) CHF (congestive heart failure): Status: Acute (7) Hypertension: Status: Acute Qualifiers: Hypertension type: essential hypertension Qualified Code(s): I10 - Essential (primary) hypertension (8) Acquired hypothyroidism: Status: Acute (9) Hypercholesteremia: Status: Acute (10) Diabetes: Status: Acute Qualifiers: Diabetes mellitus type: type 2 Diabetes mellitus terminal computer operator insulin use: without penitentiary use Diabetes mellitus complication status: with hyperglycemia Qualified Code(s): E11.65 - Type 2 diabetes mellitus with hyperglycemia Plan Acute systolic CHF exacerbation continue Bumex metolazone combination currently in -3 L balance, creatinine 1.7, spoke with Dr. Ngo, he might change to IV Lasix patient clinically still has signs of fluid overload, with aggressive diuresis no signs of contraction alkalosis, Diuretics induced hypokalemia: Repleted Check magnesium level THAI related to cardiorenal syndrome creatinine 1.7 Anticipating provement with aggressive diuresis Plan for angiogram once he is euvolemic Hold nephrotoxic agent Cardiac diet DVT prophylaxis on board Continue levothyroxine for hypothyroidism Attestations Medical Necessity Statement*: Continue medical management Time Spent in Patient Care: 20 minutes Coding Level of Care Code Acute Honing Machine Set Up Operator for [facility] Fwd Diagnoses Atrial fibrillation I48.91 Chest pain R07.9 Shortness of breath R06.02 Atrial fibrillation, new onset I48.91 Acute renal failure N17.9 CHF (congestive heart failure) I50.9 Hypertension I10 Hypertension type: essential hypertension Acquired hypothyroidism E03.9 Hypercholesteremia E78.00 Diabetes E11.65 Diabetes mellitus type: type 2 Diabetes mellitus penitentiary insulin use: without penitentiary use Diabetes mellitus complication status: with hyperglycemia
[2021-12-07] MEDS: metOLazone 5 MG Tablet 2.5 MG PO ×2 (11:11→18:30)
[2021-12-07 12:02] LABS: Glucose Point of Care 245 mg/dL (70-110)
[2021-12-07 12:08] LABS: Magnesium 1.9 mg/dL (1.7-2.3)
[2021-12-07] MEDS: insulin lispro 100 unit/1 mL SUBCUT ×2 (13:14→18:32)
[2021-12-07] MEDS: bumetanide 0.25 mg/mL SDV 10 mL 1 MG IVP (15:12)
[2021-12-07 17:02] LABS: Glucose Point of Care 226 mg/dL (70-110)
--- NOTE | 2021-12-07 18:05 | PM.PN ---
Subjective Subjective: Interval history: He has negative monitor he is feeling little better creatinine is 1.7. He has continued hematuria but better Vitals/I&O/Wt Last Vital Signs Temp 98.9 F 12/07/21 17:30 Pulse 66 12/07/21 17:30 Resp 20 H 12/07/21 17:30 BP 124/77 12/07/21 17:30 Pulse Ox 95 12/07/21 17:30 12/07/21 12/07/21 12/07/21 06:59 14:59 22:59 Intake Total 500 / 1460 577 / 577 Output Total 1700 / 3850 1290 / 1290 Balance -1200 / -2390 -713 / -713 Physical Exam Chest: OTHER: GENERAL: Patient is alert, awake and oriented x3. NECK: No jugular vein distension. HEENT: No cyanosis. No icterus. No pallor. HEART: Irregularly S1 and S2. No murmur, rub or gallop. LUNGS: Reduced breath sound bilaterally. ABDOMEN: Soft, nontender and nondistended. Positive bowel sounds. No guarding, rebound or tenderness. CENTRAL NERVOUS SYSTEM: Grossly nonfocal. EXTREMITIES: Lower extremities with trace edema bilaterally. Cardio: OTHER: GENERAL: Patient is alert, awake and oriented x3. NECK: No jugular vein distension. HEENT: No cyanosis. No icterus. No pallor. HEART: Regular S1 and S2. No murmur, rub or gallop. LUNGS: Decreased breath bilaterally. ABDOMEN:distended. Positive bowel sounds. No guarding, rebound or tenderness. [Positive abdominal wall edema CENTRAL NERVOUS SYSTEM: Grossly nonfocal. EXTREMITIES: Lower extremities with 1+ edema bilaterally. Pulses palpable in the lower extremities, both dorsalis pedis and posterior tibial. Urinary Catheter Management: Casanova: Cath Placed During This Visit: yes Reason for Continuing Indwelling Catheter: Accurate Measurement of Urinary Output in Critically Ill Patients Urinary Catheter Date of Insertion: 12/05/21 Urinary Catheter Time of Insertion: 13:44 Data : 12/07/21 02:30 12/07/21 02:30 A&P Assessment and plan (1) Atrial fibrillation: We will continue controlling his rate continue current regimen. Status: Acute (2) CHF (congestive heart failure): Patient appeared to be in decompensated systolic heart failure has increased abdominal girth, I will start diuresing him with IV Lasix 40 mg twice daily and 20 mg of potassium twice a day. Goal is 1 to 1.5 L negative, continue to monitor creatinine. Planning left heart cath once euvolemic and creatinine is within acceptable range Patient not diuresing well I will add metolazone to the regimen Continue current diuresis with metolazone and IV Bumex or Lasix Patient continues to diurese well with metolazone potassium was replaced. We will continue to replace potassium as well. Continue IV diuresis and metolazone Status: Acute (3) Acute renal failure: Continue to monitor. Status: Acute (4) Chest pain: Denies any chest pain continue to monitor Status: Acute Attestations Medical Necessity Statement*: Patient require continuation hospitalization for above defined care Coding Level of Care Code Established Pt Acute Failure Analysis Technician for Killian Gorman Patient Type Established History Detailed Exam Detailed Medical Decision Making Moderate Complexity Diagnoses Atrial fibrillation I48.91 CHF (congestive heart failure) I50.9 Acute renal failure N17.9 Chest pain R07.9
--- NOTE | 2021-12-07 19:15 | PC.NURSE ---
Lovenox stopped per Dr Villarreal verbal order due to continued hematuria and intermittent nose bleeds. RBVO
--- NOTE | 2021-12-07 20:18 | PC.NURSE ---
Received report from CLEMENTE Delgado. Patient resting in bed. Denies pain or needs. No distress observed. Instructed patient on Bumex and limon irrigation. Patient verbalized complete understanding. Will continue to monitor.
[2021-12-08] VITALS (9 sets, daily range): BP systolic 105–126; BP diastolic 58–71; PULSE 64–83; RESP 16–21; TEMP 36.2–36.8; O2SAT 91–96
[2021-12-08] MEDS: bumetanide 0.25 mg/mL SDV 10 mL 1 MG IVP ×2 (02:57→16:34)
--- NOTE | 2021-12-08 03:04 | PC.NURSE ---
Performed bladder irrigation with 200ml of NS. Received 200ml return of hematuria with moderate amount of small clots. Removed 1550ml of urine from limon prior to bladder irrigation with bright red color. Patient denies pain and tolerated procedure well. Medications administered as ordered.
[2021-12-08 04:25] LABS: Anion Gap 19.3 (5-19); Blood Urea Nitrogen 38 mg/dL (8-23); Calcium 9.3 mg/dL (8.5-10.5); Carbon Dioxide 24 mmol/L (22-29); Chloride 94 mmol/L (98-107); Glucose 144 mg/dL (65-115); Osmolality Calculated 290 mOsm/kg (285-295); Potassium 3.3 mmol/L (3.5-5.1); Sodium 134 mmol/L (136-145)
[2021-12-08 06:38] LABS: Glucose Point of Care 217 mg/dL (70-110)
[2021-12-08] MEDS: atorvastatin 40 mg Tablet 20 MG PO (08:53)
[2021-12-08] MEDS: isosorbide mononitrate 20 mg Tablet PO ×2 (08:53→17:19)
[2021-12-08] MEDS: magnesium oxide 400 mg tablet PO ×2 (08:53→17:19)
[2021-12-08] MEDS: levothyroxine 112 mcg Tablet PO (08:54)
[2021-12-08] MEDS: clopidogrel 75 mg Tablet PO (08:54)
[2021-12-08] MEDS: metOLazone 5 MG Tablet 2.5 MG PO ×2 (08:54→17:19)
[2021-12-08] MEDS: aspirin 81 mg EC Tablet PO (08:54)
[2021-12-08] MEDS: insulin lispro 100 unit/1 mL SUBCUT ×2 (08:55→17:20)
[2021-12-08] MEDS: carvedilol 3.125 mg Tablet PO ×2 (08:55→17:19)
--- NOTE | 2021-12-08 10:11 | CT_ITS ---
WS: [id number] CT ABDOMEN PELVIS TECHNIQUE: Noncontrast CT of the abdomen and pelvis with coronal and sagittal reformatted images. CLINICAL INFORMATION: persistemnt hematuria COMPARISON: None. DLP: 1769.[address] scans at [facility] use at least one of these dose optimization techniques: automated e xposure control; mA and/or kV adjustment per patient size (includes targeted exams where dose is matc hed to clinical indication); or iterative reconstruction. FINDINGS: Casanova catheter. Increased attenuation products in the bladder likely due to hematoma and blood produc ts. Bladder is collapsed around the catheter. Small amount of air in the nondependent bladder likely due to recent instrumentation. Mild prostate enlargement measuring 4.6 CCM. Prostate calcification. Tiny left pleural effusion. Slight atelectasis in the lung bases. Small noncalcified nodule in the ri ght middle lobe measuring 3.7 mm. Tiny trace of perihepatic and perisplenic ascites. Normal GE junction. Noncontrast liver is normal. B ulky dense cholelithiasis. Gallbladder is contracted. Fatty atrophy of the pancreas. Adrenal glands a re normal. No hydronephrosis in either kidney. No obstructing renal or ureteral calculi. Normal calib er abdominal aorta. Aortic calcification. No evidence of high-grade small or large bowel obstruction. Small amount of fluid in the left pericolic gutter. Tiny fat-containing umbilical hernia. Fat-containing left inguinal hernia. Endplate Schmorl's nodes L5 superior endplate. Mild disc bulging L4-5. CT/CT abdomen pelvis wo con [id number] IMPRESSION: 1. Casanova catheter in place with decompressed bladder. Increased attenuation bl ood products/hematoma within the bladder. Small amount of nondependent air in t he dome of the bladder likely due to recent Casanova placement. Consider further e valuation with cystoscopy or CT urogram to exclude underlying bladder lesion. 2. Mild prostate enlargement. 3. No obstructing renal or renal calculi. No hydronephrosis. 4. Dense bulky cholelithiasis. Gallbladder is contracted. 5. Small amount of perihepatic and perisplenic ascites. Small amount of fluid in the left pericolic gutter. Mild body wall anasarca. 6. Small left pleural effusion. 7. Small noncalcified nodule right middle lobe measuring 3.7 mm. Recommend 12 month follow-up. Notified Renetta Koo MD at 12/08/2021 2:22 PM.
--- NOTE | 2021-12-08 10:11 | PM.PN ---
Subjective Subjective: Interval history: Patient was eating breakfast this morning, persistent hematuria, requested CT abdomen pelvis, stat H&H hemoglobin stable Negative fluid balance, he has not shown any improvement with manual irrigation of Casanova catheter Vitals/I&O/Wt Last Vital Signs Temp 98.3 F 12/08/21 08:53 Pulse 75 12/08/21 08:53 Resp 20 H 12/08/21 08:53 BP 118/58 12/08/21 08:53 Pulse Ox 94 12/08/21 08:53 12/07/21 12/08/21 12/08/21 22:59 06:59 14:59 Intake Total 440 / 1017 100 / 1117 Output Total 800 / 2090 1750 / 3840 Balance -360 / -1073 -1650 / -2723 Physical Exam Narrative: EXAM NARRATIVE: Patient was sitting comfortably in his bed Eating breakfast On room air Still has fluid overloaded clinical signs Bilateral lower extremity 2+ pitting edema Abdominal girth has not improved significantly Abdomen soft Saturating well on room air Nonfocal neuro exam Urinary Catheter Management: Casanova: Cath Placed During This Visit: yes Reason for Continuing Indwelling Catheter: Acute Urinary Retention or Obstruction Urinary Catheter Date of Insertion: 12/05/21 Urinary Catheter Time of Insertion: 13:44 Data : 12/07/21 02:30 12/08/21 02:57 A&P Assessment and plan (1) Atrial fibrillation: Status: Acute (2) Chest pain: Status: Acute (3) Atrial fibrillation, new onset: Status: Acute (4) Shortness of breath: Status: Acute (5) Acute renal failure: Status: Acute (6) CHF (congestive heart failure): Status: Acute (7) Hypertension: Status: Acute Qualifiers: Hypertension type: essential hypertension Qualified Code(s): I10 - Essential (primary) hypertension (8) Acquired hypothyroidism: Status: Acute (9) Hypercholesteremia: Status: Acute (10) Diabetes: Status: Acute Qualifiers: Diabetes mellitus type: type 2 Diabetes mellitus nurse clinical insulin use: without skilled nursing use Diabetes mellitus complication status: with hyperglycemia Qualified Code(s): E11.65 - Type 2 diabetes mellitus with hyperglycemia (11) Hematuria: Status: Acute (12) Epistaxis: Status: Acute Plan Systolic congestive heart failure exacerbation patient is making good amount of urine he is clear is consistently negative fluid balance -6400 cumulative balance Creatinine has not worsened it is stable at 1.7 Still showing signs of fluid overload We will touch base with cardiology before escalating his diuretic regimen Persistent hematuria, manual irrigation has not helped to clear hematuria, will keep on doing manual irrigation today, I will obtain CT abdomen pelvis to rule out kidney stones, bladder stones and prostamegaly There is no family history of bleeding to aspirin, I am not sure if he has any von Willebrand disease because with aspirin he has been experiencing epistaxis and hematuria We will obtain H&H THAI related to cardiorenal creatinine 1.7 I am leaning towards escalating his diuretic regimen, will touch base with cardiology before next that Full code Cardiac diet DVT prophylaxis on hold because of hematuria and epistaxis Attestations Medical Necessity Statement*: Continue medical management Time Spent in Patient Care: 15mins Coding Level of Care Code Acute Internal Recruiter for g Fwd Diagnoses Atrial fibrillation I48.91 Chest pain R07.9 Atrial fibrillation, new onset I48.91 Shortness of breath R06.02 Acute renal failure N17.9 CHF (congestive heart failure) I50.9 Hypertension I10 Hypertension type: essential hypertension Acquired hypothyroidism E03.9 Hypercholesteremia E78.00 Diabetes E11.65 Diabetes mellitus type: type 2 Diabetes mellitus nurse clinical insulin use: without skilled nursing use Diabetes mellitus complication status: with hyperglycemia Hematuria R31.9 Epistaxis R04.0
[2021-12-08 11:11] LABS: Hematocrit 31.4 % (42.0-52.0); Hemoglobin 10.2 g/dL (11.7-16.6)
[2021-12-08 11:34] LABS: INR 1.15 (0.8-1.2)
[2021-12-08 16:32] LABS: Glucose Point of Care 245 mg/dL (70-110)
[2021-12-08 16:32] LABS: Glucose Point of Care 239 mg/dL (70-110)
--- NOTE | 2021-12-08 16:41 | PM.PN ---
Subjective Subjective: Interval history: Continues to diurese well had 2 L out last night. With -1.6 L, continues to have hematuria. Vitals/I&O/Wt Last Vital Signs Temp 98.3 F 12/08/21 08:53 Pulse 64 12/08/21 14:00 Resp 20 H 12/08/21 08:53 BP 118/58 12/08/21 08:53 Pulse Ox 94 12/08/21 08:53 12/08/21 12/08/21 12/08/21 06:59 14:59 22:59 Intake Total 100 / 1117 480 / 480 Output Total 1750 / 3840 2120 / 2120 Balance -1650 / -2723 -1640 / -1640 Physical Exam Cardio: OTHER: GENERAL: Patient is alert, awake and oriented x3. NECK: No jugular vein distension. HEENT: No cyanosis. No icterus. No pallor. HEART: Regular S1 and S2. No murmur, rub or gallop. LUNGS: Decreased breath bilaterally. ABDOMEN:distended. Positive bowel sounds. No guarding, rebound or tenderness. [Positive abdominal wall edema CENTRAL NERVOUS SYSTEM: Grossly nonfocal. EXTREMITIES: Lower extremities with trace edema bilaterally. Urinary Catheter Management: Casanova: Cath Placed During This Visit: yes Reason for Continuing Indwelling Catheter: Acute Urinary Retention or Obstruction Urinary Catheter Date of Insertion: 12/05/21 Urinary Catheter Time of Insertion: 13:44 Data : 12/08/21 10:35 12/08/21 02:57 A&P Assessment and plan (1) Atrial fibrillation: Heart rate is under control. Continue current regimen. Status: Acute (2) CHF (congestive heart failure): Patient appeared to be in decompensated systolic heart failure has increased abdominal girth, I will start diuresing him with IV Lasix 40 mg twice daily and 20 mg of potassium twice a day. Goal is 1 to 1.5 L negative, continue to monitor creatinine. Planning left heart cath once euvolemic and creatinine is within acceptable range Patient not diuresing well I will add metolazone to the regimen Continue current diuresis with metolazone and IV Bumex or Lasix Patient continues to diurese well with metolazone potassium was replaced. We will continue to replace potassium as well. Continue IV diuresis and metolazone Continues to diurese well we will continue Bumex and metolazone for now, replenish potassium Status: Acute (3) Acute renal failure: Appear to be stable continue to monitor Status: Acute (4) Chest pain: Denies any chest pain continue to monitor Status: Acute (5) Hematuria: Lovenox is on hold, CT suggestive of possible hematoma could be traumatic possible. Continue to monitor now hematuria settling down we will continue to monitor for now Status: Acute Attestations Medical Necessity Statement*: Patient require continuation hospitalization for above defined care Coding Level of Care Code Acute Licensed Tax Consultant for [facility] Fwd Diagnoses Atrial fibrillation I48.91 CHF (congestive heart failure) I50.9 Acute renal failure N17.9 Chest pain R07.9 Hematuria R31.9
[2021-12-08 21:19] LABS: Glucose Point of Care 311 mg/dL (70-110)
[2021-12-09] VITALS (7 sets, daily range): BP systolic 111–131; BP diastolic 64–80; PULSE 63–73; RESP 16–33; TEMP 36.6–37; O2SAT 95–97
[2021-12-09] MEDS: bumetanide 0.25 mg/mL SDV 10 mL 1 MG IVP ×2 (02:27→13:42)
[2021-12-09 03:44] LABS: Basophils # 0.1 10^3/uL (0.0-0.1); Basophils % 0.6 %; Eosinophils # 0.1 10^3/uL (0.0-0.8); Eosinophils % 1.6 %; Hematocrit 30.7 % (42.0-52.0); Hemoglobin 10.2 g/dL (11.7-16.6); Lymphocytes # 1.5 10^3/uL (0.8-4.8); Lymphocytes % 18.5 %; Mean Corpuscular HGB Conc 33.2 g/dL (30.0-36.0); Mean Corpuscular Hemoglobin 28.7 pg (28.0-34.0); Mean Corpuscular Volume 86.5 fl (80-94); Monocytes # 0.9 10^3/uL (0.2-0.9); Monocytes % 10.5 %; Neutrophils # 5.52 10^3/uL (1.8-7.7); Neutrophils % 68.1 %; Nucleated Red Blood Cells % 0 %; Platelet Count 214 10^3/cmm (130-400); Red Blood Count 3.55 10^6/uL (4.1-5.3); Red Cell Distribution Width 13.5 % (12.1-15.1); White Blood Count 8.1 10^3/uL (4.0-10.0)
[2021-12-09 04:13] LABS: Anion Gap 18.7 (5-19); Blood Urea Nitrogen 33 mg/dL (8-23); Calcium 9.4 mg/dL (8.5-10.5); Carbon Dioxide 26 mmol/L (22-29); Chloride 89 mmol/L (98-107); Glucose 223 mg/dL (65-115); Osmolality Calculated 286 mOsm/kg (285-295); Sodium 131 mmol/L (136-145)
[2021-12-09 04:40] LABS: Potassium 2.7 mmol/L (3.5-5.1)
[2021-12-09] MEDS: lidocaine 1% 5 ML in potassium chloride premix 100 ML 50 ML IV (05:14)
[2021-12-09] MEDS: lidocaine 1% 5 ML in potassium chloride premix 100 ML 25 ML IV (05:17)
[2021-12-09 06:36] LABS: Glucose Point of Care 251 mg/dL (70-110)
[2021-12-09] MEDS: isosorbide mononitrate 20 mg Tablet PO ×2 (08:21→18:11)
[2021-12-09] MEDS: metOLazone 5 MG Tablet 2.5 MG PO ×2 (08:21→18:11)
[2021-12-09] MEDS: magnesium oxide 400 mg tablet PO ×2 (08:21→18:11)
[2021-12-09] MEDS: levothyroxine 112 mcg Tablet PO (08:22)
[2021-12-09] MEDS: insulin lispro 100 unit/1 mL SUBCUT (08:22)
[2021-12-09] MEDS: atorvastatin 40 mg Tablet 20 MG PO (08:22)
[2021-12-09] MEDS: carvedilol 3.125 mg Tablet PO ×2 (08:22→18:11)
[2021-12-09 08:36] LABS: Magnesium 1.9 mg/dL (1.7-2.3)
--- NOTE | 2021-12-09 08:50 | PC.SOCIAL ---
IMM update IMM updated with patient. Copy Pg 2 provided. Verbalized an understanding. Initialled, dated, timed, and placed in chart.
[2021-12-09 10:55] LABS: Glucose Point of Care 421 mg/dL (70-110)
--- NOTE | 2021-12-09 11:26 | PM.PN ---
Subjective Subjective: Interval history: No active chest pain, or shortness of breath laying flat Negative fluid balance Creatinine 1.7, has not improved despite negative fluid balance, no signs of hydronephrosis on CT abdomen pelvis done yesterday Discussed case with Dr. Phillips who recommended 20 Telugu Casanova catheter and aggressive manual irrigation to get rid of the hematoma in the bladder, Vitals/I&O/Wt Last Vital Signs Temp 97.8 F 12/09/21 07:25 Pulse 66 12/09/21 07:25 Resp 17 12/09/21 07:25 BP 116/67 12/09/21 07:25 Pulse Ox 96 12/09/21 07:25 12/08/21 12/09/21 12/09/21 22:59 06:59 14:59 Intake Total 240 / 720 635 / 635 Output Total 740 / 2860 2125 / 4985 1000 / 1000 Balance -500 / -2140 -2125 / -4265 -365 / -365 Physical Exam Narrative: EXAM NARRATIVE: Patient laying flat No orthopnea PND Signs of fluid overload Saturating well on room air Persistent hematuria Abdomen soft Nonfocal neuro exam Urinary Catheter Management: Casanova: Cath Placed During This Visit: yes Reason for Continuing Indwelling Catheter: Acute Urinary Retention or Obstruction Urinary Catheter Date of Insertion: 12/05/21 Urinary Catheter Time of Insertion: 13:44 Data : 12/09/21 02:56 12/09/21 02:56 A&P Assessment and plan (1) Epistaxis: Status: Acute (2) Hematuria: Status: Acute (3) Atrial fibrillation: Status: Acute (4) Chest pain: Status: Acute (5) Atrial fibrillation, new onset: Status: Acute (6) Shortness of breath: Status: Acute (7) Acute renal failure: Status: Acute (8) CHF (congestive heart failure): Status: Acute (9) Hypertension: Status: Acute Qualifiers: Hypertension type: essential hypertension Qualified Code(s): I10 - Essential (primary) hypertension (10) Acquired hypothyroidism: Status: Acute (11) Hypercholesteremia: Status: Acute (12) Diabetes: Status: Acute Qualifiers: Diabetes mellitus type: type 2 Diabetes mellitus medical terminologist insulin use: without care home use Diabetes mellitus complication status: with hyperglycemia Qualified Code(s): E11.65 - Type 2 diabetes mellitus with hyperglycemia (13) Hypokalemia: Status: Acute Plan Persistent hematuria, will change Casanova catheter size to 20 Telugu and aggressive manual irrigation No significant drop in hemoglobin Systolic congestive heart exacerbation continue IV diuresis, we might need to increase IV Bumex to 2 mg every 12 with metolazone however he is still in negative balance Acute cardiorenal THAI creatinine plateaued at 1.7 despite negative balance Hypokalemia secondary to diuresis Potassium repleted check magnesium level No active diarrhea Considering persistent creatinine level of 1.7, angiogram might be questionable, will touch base with cardiology Continue cardiac consistent carb diet Hyperglycemia noted, added sliding scale, recheck today POC glucose Attestations Medical Necessity Statement*: Continue medical management Time Spent in Patient Care: 15mins Coding Level of Care Code Acute Adjustment Supervisor for Chg Fwd Diagnoses Epistaxis R04.0 Hematuria R31.9 Atrial fibrillation I48.91 Chest pain R07.9 Atrial fibrillation, new onset I48.91 Shortness of breath R06.02 Acute renal failure N17.9 CHF (congestive heart failure) I50.9 Hypertension I10 Hypertension type: essential hypertension Acquired hypothyroidism E03.9 Hypercholesteremia E78.00 Diabetes E11.65 Diabetes mellitus type: type 2 Diabetes mellitus medical terminologist insulin use: without medical terminologist use Diabetes mellitus complication status: with hyperglycemia Hypokalemia E87.6
[2021-12-09 11:36] LABS: Glucose Point of Care 552 mg/dL (70-110)
[2021-12-09 12:32] LABS: Estmated Average Glucose 197; Hemoglobin A1C 8.5 % (4.0-6.0)
[2021-12-09] MEDS: insulin lispro 100 unit/1 mL 20 UNIT SUBCUT (12:43)
[2021-12-09] MEDS: potassium chloride ER 20 mEq Tablet 40 MEQ PO (12:45)
--- NOTE | 2021-12-09 12:57 | PM.CONSULT ---
Providers/Reason For Consult Consulting Physician/Specialty*: Phillips/urology Reason for Consult*: Gross hematuria Requesting Physician: Dr. Koo Attending Physician: Renetta Koo MD Primary Care Provider: Cynthia Carranza MD History of Present Illness History of Present Illness Gordy Fiore is a 76 year old male Who was admitted on 12/04/2021 for increased and known history of coronary artery disease. Had a catheter placed for volume management (a lot of diuretics) and since then he is complained of gross hematuria. Manual irrigation has failed to resolve this. A CT scan demonstrates some clots in the bladder. I was consulted for further evaluation. He denied any history of gross hematuria prior to catheter placement. He is on chronic Plavix. Crockett that his baseline voiding was good, that he emptied well, and had no symptoms of UTI or prior retention. There was no upper urinary tract abnormality on the CT scan. Denies stones or renal colicky symptoms historically. Review of Systems Const: Denies: fever(s) or chills Eyes: Denies: change in vision or eye discharge Card: Reports: chest pain, swelling of feet/ankles and dyspnea on exertion Resp: Reports: dyspnea; Denies: productive cough, non-productive cough or wheezing GI: Denies: abdominal pain, nausea or vomiting : Reports: hematuria (See HPI); Denies: flank pain, difficulty urinating or dysuria Musc: Reports: extremity swelling; Denies: back pain Skin/Breast: Denies: rash, changes in skin color or jaundice Neuro: Denies: confusion, behavioral changes or Slurred speech present Psych: Denies: anxiety or memory loss See/Lymph: Reports: easy bruising and easy bleeding All/Imm: Denies: urticaria or acute wheezing Medications/Allergies Home Medications Medication Instructions Recorded Confirmed Last Taken Type aspirin 81 mg tablet,delayed 81 mg PO DAILY 12/26/19 12/05/21 12/04/21 History release (Adult Aspirin Regimen) atorvastatin 20 mg tablet 20 mg PO DAILY 90 Days #90 tab 01/11/21 12/05/21 12/04/21 Rx clopidogrel 75 mg tablet 75 mg PO DAILY 90 Days #90 tab 02/11/21 12/05/21 12/04/21 Rx glimepiride 4 mg tablet 4 mg PO BID 90 Days #180 tab 08/10/21 12/05/21 12/04/21 Rx levothyroxine 112 mcg tablet 112 mcg PO DAILY #90 tab 08/10/21 12/05/21 12/04/21 Rx sitagliptin 100 mg tablet 100 mg PO DAILY #90 tab 08/10/21 12/05/21 12/04/21 Rx carvedilol 3.125 mg tablet 3.125 mg PO BID #60 tab 11/22/21 12/05/21 12/04/21 Rx furosemide 40 mg tablet 40 mg PO DAILY #90 tab 11/22/21 12/05/21 12/04/21 Rx metformin 1,000 mg tablet 500 mg PO BID tab 11/22/21 12/05/21 12/04/21 History potassium chloride 20 mEq 20 meq PO DAILY #90 tab 11/22/21 12/05/21 12/04/21 Rx tablet,extended release nitroglycerin 0.4 mg sublingual 0.4 mg SUBLINGUAL Q5M #30 tab 12/02/21 12/05/21 Unknown Rx tablet lisinopril 10 mg tablet 10 mg PO DAILY 12/05/21 12/05/21 12/04/21 History Allergies Allergy/AdvReac Type Severity Reaction Status Date / Time No Known Allergies Allergy Verified 12/02/21 08:57 Current Medications Generic Name Dose Route Start Last Admin Trade Name Carola PRN Reason Stop Dose Admin Aspirin 81 mg 12/05/21 09:00 12/08/21 08:54 Aspirin 81 Mg Ec Tablet PO 81 mg DAILY THOMAS Administration Atorvastatin Calcium 20 mg 12/05/21 09:00 12/09/21 08:22 Atorvastatin 40 Mg Tablet PO 20 mg DAILY THOMAS Administration Carvedilol 3.125 mg 12/04/21 19:41 12/09/21 08:22 Carvedilol 3.125 Mg Tablet PO 3.125 mg BID THOMAS Administration Clopidogrel Bisulfate 75 mg 12/05/21 09:00 12/08/21 08:54 Clopidogrel 75 Mg Tablet PO 75 mg DAILY THOMAS Administration Insulin Human Lispro 0 unit 12/06/21 08:00 12/09/21 12:04 Insulin Lispro 100 Unit/1 Ml SUBCUT Not Given TIDWM THOMAS Protocol Insulin Human Lispro 0 unit 12/09/21 12:00 12/09/21 12:45 Insulin Lispro 100 Unit/1 Ml SUBCUT Not Given TIDWM THOMAS Protocol Isosorbide Mononitrate 20 mg 12/04/21 19:40 12/09/21 08:21 Isosorbide Mononitrate 20 Mg Tablet PO 20 mg BID THOMAS Administration Levothyroxine Sodium 112 mcg 12/05/21 09:00 12/09/21 08:22 Levothyroxine 112 Mcg Tablet PO 112 mcg DAILY THOMAS Administration Magnesium Oxide 400 mg 12/04/21 19:41 12/09/21 08:21 Magnesium Oxide 400 Mg Tablet PO 400 mg BID THOMAS Administration Metolazone 2.5 mg 12/06/21 18:00 12/09/21 08:21 Metolazone 5 Mg Tablet PO 2.5 mg BID THOMAS Administration PFSH Acute PFSH: Medical History Acquired hypothyroidism Atrial fibrillation CHF (congestive heart failure) Diabetes Hematuria Hypercholesteremia Hypertension Hypothalamic hypothyroidism Surgical History History of coronary angioplasty History of hand surgery Social History Smoking and tobacco status: never smoked Alcohol intake: never Vitals/I&O/Wt Last Vital Signs Temp 97.8 F 12/09/21 07:25 Pulse 68 12/09/21 11:41 Resp 16 12/09/21 11:41 BP 116/67 12/09/21 11:41 Pulse Ox 97 12/09/21 11:41 12/08/21 12/09/21 12/09/21 22:59 06:59 14:59 Intake Total 240 / 720 635 / 635 Output Total 740 / 2860 2125 / 4985 1000 / 1000 Balance -500 / -2140 -2125 / -4265 -365 / -365 Physical Exam Const: COMMON NORMALS: apparent distress and negative for patient oriented x3 HENMT: COMMON NORMALS: normocephalic and atraumatic HEAD & SCALP: normocephalic and atraumatic Eye: COMMON NORMALS: conjunctivae normal and no scleral icterus CONJUNCTIVA: Yes conjunctivae normal Neck/C-Spine: OTHER: Good range of motion Lymph: LYMPHATIC: no lymphadenopathy noted and lymphedema Chest: OTHER: Normal movements Resp: COMMON NORMALS: normal respiratory effort GI: COMMON NORMALS: Soft to palpation, non-tender and no masses PALPATION: Yes Soft to palpation : COMMON NORMALS: Yes normal external exam and Yes scrotum normal Neuro: COMMON NORMALS: negative for patient oriented x3 Psych: COMMON NORMALS: mental status grossly normal, Normal thought process present, cooperative, normal affect and speech normal ATTITUDE: Yes calm and Yes engaged SPEECH: Yes normal speech THOUGHT PROCESS: Normal thought process present Skin: COMMON NORMALS: no rashes or lesions noted GENERAL SKIN EXAM: no rashes or lesions noted and no jaundice Urinary Catheter Management: Casanova: Cath Placed During This Visit: yes Reason for Continuing Indwelling Catheter: Acute Urinary Retention or Obstruction Urinary Catheter Date of Insertion: 12/05/21 Urinary Catheter Time of Insertion: 13:44 Data : 12/09/21 02:56 12/09/21 02:56 A&P Assessment and plan (1) Gross hematuria: No prior history of gross hematuria before catheter placed. On chronic antiplatelet medications Large bore hematuria catheter placed, bladder manually irrigated, CBI initiated I expect that he will be able to be weaned off the CBI relatively quickly. Once his urine stays clear we can take the catheter out. He will need follow-up to make sure that his urine clears appropriately microscopically as well. If persists with microscopic hematuria would recommend cystoscopy on outpatient basis. Status: Acute (2) CHF (congestive heart failure): Status: Acute (3) Acute renal failure: Status: Acute (4) Antiplatelet or antithrombotic long-term use: Status: Acute Coding Level of Care Code Acute Burr Bench Operator for [facility] Diagnoses CHF (congestive heart failure) I50.9 Acute renal failure N17.9 Gross hematuria R31.0 Antiplatelet or antithrombotic long-term use Z79.02
[2021-12-09] MEDS: lidocaine 2% Urojet 20 mL TOPICAL (13:42)
--- NOTE | 2021-12-09 15:12 | PM.PN ---
Subjective Subjective: Interval history: Continue diuresed well. Creatinine is 1.7. Bleeding per urethra improving but still patient has hematuria Vitals/I&O/Wt Last Vital Signs Temp 97.8 F 12/09/21 07:25 Pulse 68 12/09/21 11:41 Resp 16 12/09/21 11:41 BP 116/67 12/09/21 11:41 Pulse Ox 97 12/09/21 11:41 12/09/21 12/09/21 12/09/21 06:59 14:59 22:59 Intake Total 635 / 635 Output Total 2125 / 4985 1650 / 1650 Balance -2125 / -4265 -1015 / -1015 Physical Exam Chest: OTHER: Cardio: OTHER: GENERAL: Patient is alert, awake and oriented x3. NECK: No jugular vein distension. HEENT: No cyanosis. No icterus. No pallor. HEART: Regular S1 and S2. No murmur, rub or gallop. LUNGS: Decreased breath bilaterally. ABDOMEN:distended. Positive bowel sounds. No guarding, rebound or tenderness. [Positive abdominal wall edema CENTRAL NERVOUS SYSTEM: Grossly nonfocal. EXTREMITIES: Lower extremities with trace edema bilaterally. Urinary Catheter Management: Casanova: Cath Placed During This Visit: yes Reason for Continuing Indwelling Catheter: Acute Urinary Retention or Obstruction Urinary Catheter Date of Insertion: 12/05/21 Urinary Catheter Time of Insertion: 13:44 Data : 12/09/21 02:56 12/09/21 02:56 A&P Assessment and plan (1) Atrial fibrillation: Heart rate is under control. Continue current regimen. Status: Acute (2) CHF (congestive heart failure): Patient appeared to be in decompensated systolic heart failure has increased abdominal girth, I will start diuresing him with IV Lasix 40 mg twice daily and 20 mg of potassium twice a day. Goal is 1 to 1.5 L negative, continue to monitor creatinine. Planning left heart cath once euvolemic and creatinine is within acceptable range Patient not diuresing well I will add metolazone to the regimen Continue current diuresis with metolazone and IV Bumex or Lasix Patient continues to diurese well with metolazone potassium was replaced. We will continue to replace potassium as well. Continue IV diuresis and metolazone Continues to diurese well we will continue Bumex and metolazone for now, replenish potassium Continue diuresis as patient is in negative balance and getting better improved Status: Acute (3) Acute renal failure: Stable. Status: Acute (4) Chest pain: Denies any chest pain continue to monitor once he resolved the hematuria as an outpatient , I am planning to bring him back Status: Acute (5) Hematuria: Lovenox is on hold, CT suggestive of possible hematoma could be traumatic possible. Continue to monitor now hematuria settling down we will continue to monitor for now Status: Acute Attestations Medical Necessity Statement*: Patient require continuation hospitalization for above defined care Coding Level of Care Code Established Pt Acute Master Control Supervisor for Chg Fwd Patient Type Established History Detailed Exam Detailed Medical Decision Making Moderate Complexity Diagnoses Atrial fibrillation I48.91 CHF (congestive heart failure) I50.9 Acute renal failure N17.9 Chest pain R07.9 Hematuria R31.9
[2021-12-09 17:22] LABS: Glucose Point of Care 90 mg/dL (70-110)
[2021-12-09] MEDS: bumetanide 0.25 mg/mL SDV 10 mL 2 MG IVP (22:06)
[2021-12-09 22:36] LABS: Glucose Point of Care 204 mg/dL (70-110)
[2021-12-09] MEDS: insulin glargine 100 units/1 mL 15 UNIT SUBCUT (22:56)
[2021-12-10] VITALS (14 sets, daily range): BP systolic 108–124; BP diastolic 54–71; PULSE 64–80; RESP 5–23; TEMP 36.8; O2SAT 82–98
[2021-12-10 03:36] LABS: Basophils % 0.5 %; Eosinophils # 0.1 10^3/uL (0.0-0.8); Eosinophils % 1.1 %; Hematocrit 30.5 % (42.0-52.0); Hemoglobin 10.1 g/dL (11.7-16.6); Lymphocytes # 0.8 10^3/uL (0.8-4.8); Lymphocytes % 10.5 %; Mean Corpuscular HGB Conc 33.1 g/dL (30.0-36.0); Mean Corpuscular Hemoglobin 28.5 pg (28.0-34.0); Mean Corpuscular Volume 85.9 fl (80-94); Mean Platelet Volume 11.3 fL (7.4-10.4); Monocytes # 0.9 10^3/uL (0.2-0.9); Monocytes % 11.2 %; Neutrophils # 5.76 10^3/uL (1.8-7.7); Neutrophils % 75.8 %; Nucleated Red Blood Cells % 0 %; Platelet Count 209 10^3/cmm (130-400); Red Blood Count 3.55 10^6/uL (4.1-5.3); Red Cell Distribution Width 13.5 % (12.1-15.1); White Blood Count 7.6 10^3/uL (4.0-10.0)
[2021-12-10 04:02] LABS: Anion Gap 16.1 (5-19); Blood Urea Nitrogen 31 mg/dL (8-23); Calcium 8.4 mg/dL (8.5-10.5); Carbon Dioxide 30 mmol/L (22-29); Chloride 86 mmol/L (98-107); Glucose 220 mg/dL (65-115); Osmolality Calculated 281 mOsm/kg (285-295); Potassium 3.1 mmol/L (3.5-5.1); Sodium 129 mmol/L (136-145)
[2021-12-10 04:03] LABS: Magnesium 1.6 mg/dL (1.7-2.3)
[2021-12-10] MEDS: bumetanide 0.25 mg/mL SDV 10 mL 2 MG IVP ×2 (05:41→19:49)
[2021-12-10 06:21] LABS: Glucose Point of Care 181 mg/dL (70-110)
--- NOTE | 2021-12-10 07:44 | P.PN_ITS ---
Subjective Subjective: Interval history: Urology follow-up: Has required persistent CBI overnight. At times has had some clots pass. Sounds like he is having some bladder spasms. No manual irrigation done overnight. Reviewed with the nursing staff a schedule for manual irrigation and goals of manual irrigation versus CBI. Recommend every 2 hour with at least 250 cc of sterile water or more to remove clots. I think once the clots are completely removed CBI can be quickly weaned off. Again there was no history of hematuria prior to catheter placement. Vitals/I&O/Wt Last Vital Signs Temp 98.6 F 12/09/21 20:00 Pulse 76 12/10/21 03:58 Resp 23 H 12/10/21 03:55 BP 124/68 12/10/21 03:55 Pulse Ox 94 12/10/21 03:55 12/09/21 12/10/21 12/10/21 22:59 06:59 14:59 Intake Total 1900 / 2535 300 / 2835 Output Total 3650 / 5300 2325 / 7625 Balance -1750 / -2765 -5 / -4790 Physical Exam Const: COMMON NORMALS: no acute distress and patient oriented x3 HENMT: COMMON NORMALS: normocephalic HEAD & SCALP: normocephalic Resp: COMMON NORMALS: normal respiratory effort GI: COMMON NORMALS: Normal to inspection, nondistended, normoactive bowel sounds present, Soft to palpation, non-tender and no masses (Bladder is not distended) PALPATION: Yes Soft to palpation : COMMON NORMALS: Yes normal external exam Neuro: COMMON NORMALS: patient oriented x3 Psych: COMMON NORMALS: mental status grossly normal, Normal thought process present, cooperative and normal affect THOUGHT PROCESS: Normal thought process present Urinary Catheter Management: Casanova: Cath Placed During This Visit: yes Reason for Continuing Indwelling Catheter: Acute Urinary Retention or Obst ruction Urinary Catheter Date of Insertion: 12/05/21 Urinary Catheter Time of Insertion: 13:44 Data : 12/10/21 03:15 12/10/21 03:15 A&P Assessment and plan (1) Gross hematuria: Likely catheter trauma patient who is anticoagulated. Still probably has clots in the bladder. Reviewed with nursing staff again the appropriateness of manual irrigation on a regular basis until clots are cleared. At that point I think the CBI will be carefully and safely weaned off. Status: Acute (2) CHF (congestive heart failure): Status: Acute (3) Acute renal failure: Status: Acute (4) Antiplatelet or antithrombotic long-term use: Status: Acute Attestations Medical Necessity Statement*: See attending Coding Level of Care Code Acute Wilderness Guide for [place] Fwd Diagnoses Gross hematuria R31.0 CHF (congestive heart failure) I50.9 Acute renal failure N17.9 Antiplatelet or antithrombotic long-term use Z79.02
[2021-12-10] MEDS: insulin lispro 100 unit/1 mL SUBCUT ×3 (08:18→17:47)
[2021-12-10] MEDS: levothyroxine 112 mcg Tablet PO (08:18)
[2021-12-10] MEDS: isosorbide mononitrate 20 mg Tablet PO ×2 (08:25→17:47)
[2021-12-10] MEDS: magnesium oxide 400 mg tablet PO ×2 (08:25→17:47)
[2021-12-10] MEDS: metOLazone 5 MG Tablet 2.5 MG PO ×2 (08:25→17:47)
[2021-12-10] MEDS: carvedilol 3.125 mg Tablet PO ×2 (08:25→17:47)
[2021-12-10] MEDS: atorvastatin 40 mg Tablet 20 MG PO (08:25)
[2021-12-10] MEDS: lidocaine 1% 5 ML in potassium chloride premix 100 ML 25 ML IV (08:35)
--- NOTE | 2021-12-10 09:30 | P.PN_ITS ---
Subjective Subjective: Interval history: CBI started by Dr. Phillips, appreciate urology recommendations Patient is feeling better, hypervolemia has improved Creatinine 1.6 Hemoglobin has not dropped significantly Adequate urine output His is getting tested for COVID-19 as she is having symptoms at home I discussed with the patient that we are planning to keep him here until next week and if his creatinine improves we will plan for angiogram, he is agreeable for the LifeVest at the time of discharge Continue aggressive IV diuretics and then readjust the dose tomorrow morning Vitals/I&O/Wt Last Vital Signs Temp 98.6 F 12/09/21 20:00 Pulse 76 12/10/21 03:58 Resp 23 H 12/10/21 03:55 BP 124/68 12/10/21 03:55 Pulse Ox 94 12/10/21 03:55 12/09/21 12/10/21 12/10/21 22:59 06:59 14:59 Intake Total 1900 / 2535 300 / 2835 Output Total 3650 / 5300 2325 / 7625 Balance -1750 / -2765 -2025 / -4790 Physical Exam Narrative: EXAM NARRATIVE: Patient is laying supine Orthopnea PND improved Hypokalemia improved as well Edema of legs improved [place]-colored urine in the bag CBI at the bedside Nonfocal neuro exam S1, S2 Breathing well on room air Urinary Catheter Management: Casanova: Cath Placed During This Visit: yes Reason for Continuing Indwelling Catheter: Acute Urinary Retention or Obstruction Urinary Catheter Date of Insertion: 12/05/21 Urinary Catheter Time of Insertion: 13:44 Data : 12/10/21 03:15 12/10/21 03:15 A&P Assessment and plan (1) Gross hematuria: Status: Acute (2) Hypokalemia: Status: Acute (3) Epistaxis: Status: Acute (4) Hematuria: Status: Acute (5) Atrial fibrillation: Status: Acute (6) Chest pain: Status: Acute (7) Atrial fibrillation, new onset: Status: Acute (8) Shortness of breath: Status: Acute (9) Acute renal failure: Status: Acute (10) CHF (congestive heart failure): Status: Acute (11) Acquired hypothyroidism: Status: Acute Plan For gross hematuria after Casanova catheter placement CBI started by urology Appreciate Dr. Phillips's recommendations Hemoglobin has not dropped significantly Likely traumatic Casanova catheter placement Congestive heart failure exacerbation: Improving hypokalemia has improved continue Bumex 2 mg every 12 along metolazone THAI related to cardiorenal syndrome: Improved with aggressive diuretics, creatinine 1.6 today No signs of hydronephrosis Cardiac diet DVT prophylaxis on hold secondary to hematuria SCDs in place Full code Consistent carb diet with sliding scale Attestations Medical Necessity Statement*: Continue medical manage Time Spent in Patient Care: 15 Coding Level of Care Code Acute Marine Safety Officer for g Fwd Diagnoses Gross hematuria R31.0 Hypokalemia E87.6 Epistaxis R04.0 Hematuria R31.9 Atrial fibrillation I48.91 Chest pain R07.9 Atrial fibrillation, new onset I48.91 Shortness of breath R06.02 Acute renal failure N17.9 CHF (congestive heart failure) I50.9 Acquired hypothyroidism E03.9
[2021-12-10 12:03] LABS: Glucose Point of Care 353 mg/dL (70-110)
[2021-12-10] MEDS: magnesium sulfate premix 2 GM/50 ML PIGGYBACK IV (13:05)
[2021-12-10 16:15] LABS: Glucose Point of Care 158 mg/dL (70-110)
--- NOTE | 2021-12-10 18:24 | PM.PN ---
Subjective Subjective: Interval history: Diuresed well. Bladder irrigation is going on. Vitals/I&O/Wt Last Vital Signs Temp 98.6 F 12/09/21 20:00 Pulse 65 12/10/21 16:28 Resp 10 L 12/10/21 16:28 BP 108/66 12/10/21 16:28 Pulse Ox 97 12/10/21 16:28 12/10/21 12/10/21 12/10/21 06:59 14:59 22:59 Intake Total 300 / 2835 155 / 155 Output Total 2325 / 7625 Balance -2024 / 4790 155 / 155 Physical Exam Chest: OTHER: Cardio: OTHER: GENERAL: Patient is alert, awake and oriented x3. NECK: No jugular vein distension. HEENT: No cyanosis. No icterus. No pallor. HEART: Regular S1 and S2. No murmur, rub or gallop. LUNGS: Decreased breath bilaterally. ABDOMEN:distended. Positive bowel sounds. No guarding, rebound or tenderness. CENTRAL NERVOUS SYSTEM: Grossly nonfocal. EXTREMITIES: Lower extremities with trace edema bilaterally. Urinary Catheter Management: Casanova: Cath Placed During This Visit: yes Reason for Continuing Indwelling Catheter: Acute Urinary Retention or Obstruction Urinary Catheter Date of Insertion: 12/05/21 Urinary Catheter Time of Insertion: 13:44 Data : 12/10/21 03:15 12/10/21 03:15 A&P Assessment and plan (1) Atrial fibrillation: Heart rate is under control. Continue current regimen. Status: Acute (2) CHF (congestive heart failure): Patient appeared to be in decompensated systolic heart failure has increased abdominal girth, I will start diuresing him with IV Lasix 40 mg twice daily and 20 mg of potassium twice a day. Goal is 1 to 1.5 L negative, continue to monitor creatinine. Planning left heart cath once euvolemic and creatinine is within acceptable range Patient not diuresing well I will add metolazone to the regimen Continue current diuresis with metolazone and IV Bumex or Lasix Patient continues to diurese well with metolazone potassium was replaced. We will continue to replace potassium as well. Continue IV diuresis and metolazone Continues to diurese well we will continue Bumex and metolazone for now, replenish potassium Continue diuresis as patient is in negative balance and getting better improved Doing fine from a cardiovascular perspective has diuresed very well. Lost weight breathing better was able to lay flat on the bed. At this point will back off and switch him to p.o. Lasix 40 mg twice a day. We will discontinue metolazone. Status: Acute (3) Acute renal failure: Slightly improved. Continue to monitor Status: Acute (4) Chest pain: Denies any chest pain. Status: Acute (5) Hematuria: Lovenox is on hold, CT suggestive of possible hematoma could be traumatic possible. Continue to monitor now hematuria settling down we will continue to monitor for now Status: Acute (6) Cardiomyopathy: Severely depressed LV function at some point need to rule out with left heart cath. We think because of hematuria patient will be treated medically for now and in few weeks we will bring him back for left heart cath once stable anemia and bleeding ray. LifeVest patient agreed before discharge we will place it Status: Acute Attestations Medical Necessity Statement*: Patient require continuation hospitalization for above event care Coding Level of Care Code Established Pt Acute Pantograph Transferrer for [place] Fwd Patient Type Established History Detailed Exam Detailed Medical Decision Making Moderate Complexity Diagnoses Atrial fibrillation I48.91 CHF (congestive heart failure) I50.9 Acute renal failure N17.9 Chest pain R07.9 Hematuria R31.9 Cardiomyopathy I42.9
--- NOTE | 2021-12-10 19:03 | PC.NURSE ---
Specific orders per Dr. Phillips. To manually irrigate catheter q2h with sterile water.
[2021-12-10] MEDS: insulin glargine 100 units/1 mL 15 UNIT SUBCUT (19:49)
--- NOTE | 2021-12-10 20:13 | PC.NURSE ---
Received report from EALINA Walters. Patient is lying in bed. Denies pain or needs. CBI running presently with pink/clear urine observed. No clots seen at this time. Instructed patient on irrigation every 2 hours and next time would be 2029. Patient verbalized understanding. Emptied limon catheter as documented. Will continue to monitor.
[2021-12-10 20:25] LABS: Glucose Point of Care 195 mg/dL (70-110)
--- NOTE | 2021-12-10 22:32 | PC.NURSE ---
Performed manual irrigation at this time with 250ml of sterile water. Received 200ml return of clear, pale yellow/pink fluid. No clots observed at this time. CBI on hold presently. Next irrigation due ~0030.
[2021-12-11] VITALS (28 sets, daily range): BP systolic 109–129; BP diastolic 56–73; PULSE 58–83; RESP 13–33; TEMP 36.8; O2SAT 83–97
--- NOTE | 2021-12-11 00:32 | PC.NURSE ---
CBI Currently stopped at this time. Patient had 550ml of pale yellow urine removed from catheter. Performed manual irrigation with 250ml of sterile water. Had 250ml return of clear, pale yellow urine. No clots or blood return observed. Patient tolerated well. Instructed patient on next time manual irrigation is due. Patient expressed full understanding. Will continue to monitor.
--- NOTE | 2021-12-11 02:32 | PC.NURSE ---
Manual Irrigation Performed manual bladder irrigation with 250ml sterile water with 250ml of clear fluid return. CBI on hold presently. Removed 400ml of clear, pale yellow urine from collection bag prior to bladder irrigation. NO clots or blood observed at this time. Patient tolerated well.
[2021-12-11 03:48] LABS: Basophils # 0.1 10^3/uL (0.0-0.1); Eosinophils # 0.1 10^3/uL (0.0-0.8); Eosinophils % 1.1 %; Hematocrit 30.8 % (42.0-52.0); Hemoglobin 10.4 g/dL (11.7-16.6); Lymphocytes # 0.9 10^3/uL (0.8-4.8); Lymphocytes % 14.2 %; Mean Corpuscular HGB Conc 33.8 g/dL (30.0-36.0); Mean Corpuscular Hemoglobin 28.5 pg (28.0-34.0); Mean Corpuscular Volume 84.4 fl (80-94); Mean Platelet Volume 11.6 fL (7.4-10.4); Neutrophils # 4.12 10^3/uL (1.8-7.7); Neutrophils % 66.7 %; Nucleated Red Blood Cells % 0 %; Platelet Count 213 10^3/cmm (130-400); Red Blood Count 3.65 10^6/uL (4.1-5.3); Red Cell Distribution Width 13.5 % (12.1-15.1); White Blood Count 6.2 10^3/uL (4.0-10.0)
[2021-12-11 04:17] LABS: Anion Gap 18.5 (5-19); Blood Urea Nitrogen 32 mg/dL (8-23); Calcium 8.9 mg/dL (8.5-10.5); Carbon Dioxide 33 mmol/L (22-29); Chloride 84 mmol/L (98-107); Glucose 111 mg/dL (65-115); Osmolality Calculated 284 mOsm/kg (285-295); Sodium 133 mmol/L (136-145)
[2021-12-11 04:21] LABS: Potassium 2.5 mmol/L (3.5-5.1)
--- NOTE | 2021-12-11 04:40 | PC.NURSE ---
Bladder irrigation Performed bladder irrigation as ordered at this time with 250ml of sterile water with 250ml clear to pale yellow fluid returned. NO clots or blood present at this time. Patient tolerated very well. CBI continues to be on hold.
[2021-12-11] MEDS: bumetanide 0.25 mg/mL SDV 10 mL 2 MG IVP (04:54)
[2021-12-11] MEDS: lidocaine 1% 5 ML in potassium chloride premix 100 ML 50 ML IV (04:54)
[2021-12-11 06:25] LABS: Glucose Point of Care 143 mg/dL (70-110)
--- NOTE | 2021-12-11 06:26 | P.PN_ITS ---
Subjective Subjective: Interval history: Urology follow-up: Regular irrigation with minimal clots returned. No severe active bleeding currently. CBI has been off essentially all night with no worsening. Reviewed with the nursing staff. No other issues related to his urologic condition. Creatinine 1.6. Recommendations: 1. Keep CBI off 2. Manual irrigations as needed only. Can stop scheduled irrigation unless increasing bleeding at which point both CBI and manual irrigations can be re sumed 3. If continues to do well we will plan on removing the catheter tomorrow, perform 6 bottle void within and out caths as needed based on PVR bladder scans. Medications: Reviewed: Yes Vitals/I&O/Wt Last Vital Signs Temp 98.3 F 12/10/21 20:00 Pulse 60 12/11/21 06:00 Resp 21 H 12/11/21 04:39 BP 112/62 12/11/21 04:39 Pulse Ox 92 12/11/21 04:39 12/10/21 12/10/21 12/11/21 14:59 22:59 06:59 Intake Total 155 / 155 Output Total 1600 / 1600 1350 / 2950 Balance 155 / 155 -1600 / -1445 -1350 / -2795 Physical Exam Narrative: EXAM NARRATIVE: Alert and oriented no acute distress Normal mental status. Good judgment and insight Catheter draining clear urine with some hint of pink. Catheter functioning No change otherwise in physical exam. Urinary Catheter Management: Casanova: Cath Placed During This Visit: yes Reason for Continuing Indwelling Catheter: Acute Urinary Retention or Ob struction Urinary Catheter Date of Insertion: 12/05/21 Urinary Catheter Time of Insertion: 13:44 Data : 12/11/21 03:10 12/11/21 03:10 A&P Assessment and plan (1) Gross hematuria: Improving. Has done well with CBI and manual irrigation by the nursing staff. Can keep CBI off, changed to as needed manual irrigation, likely remove Casanova catheter tomorrow Status: Acute (2) Acute renal failure: Improving Status: Acute Attestations Medical Necessity Statement*: See attending Coding Level of Care Code Acute Classroom Coordinator for Killian Gorman Diagnoses Gross hematuria R31.0 Acute renal failure N17.9
--- NOTE | 2021-12-11 06:28 | PC.NURSE ---
Dr Phillips in to see patient at this time. Rounded with doctor. Received verbal instruction to performed manual irrigation on an as needed basis. Will leave 3-way limon in place for now.
[2021-12-11] MEDS: lidocaine 1% 5 ML in potassium chloride premix 100 ML 25 ML IV (06:59)
[2021-12-11] MEDS: potassium chloride ER 20 mEq Tablet 40 MEQ PO (08:01)
[2021-12-11] MEDS: levothyroxine 112 mcg Tablet PO (08:01)
[2021-12-11] MEDS: bumetanide 1 mg Tablet PO (08:01)
[2021-12-11] MEDS: isosorbide mononitrate 20 mg Tablet PO ×2 (08:01→17:57)
[2021-12-11] MEDS: magnesium oxide 400 mg tablet PO ×2 (08:01→17:57)
[2021-12-11] MEDS: carvedilol 3.125 mg Tablet PO ×2 (08:01→17:57)
[2021-12-11] MEDS: insulin lispro 100 unit/1 mL SUBCUT ×3 (08:02→17:57)
[2021-12-11] MEDS: atorvastatin 40 mg Tablet 20 MG PO (08:15)
--- NOTE | 2021-12-11 10:21 | PC.SOCIAL ---
IMM Update Updated pt on IMM. No questions voiced. Provided pt a copy. Initialed, dated, & timed copy in chart.
--- NOTE | 2021-12-11 10:48 | P.PN_ITS ---
Subjective Subjective: Interval history: Urine color is becoming pink, CBI at the bedside Hemoglobin stable potassium repleted check mag level De-escalate Bumex, contraction alkalosis noted negative fluid balance, will do Bumex 1 mg p.o. daily now discontinue metolazone Creatinine 1.6 His tested positive for COVID-19 Vitals/I&O/Wt Last Vital Signs Temp 98.3 F 12/11/21 08:00 Pulse 72 12/11/21 10:34 Resp 18 12/11/21 10:34 BP 112/62 12/11/21 08:00 Pulse Ox 95 12/11/21 10:34 12/10/21 12/11/21 12/11/21 22:59 06:59 14:59 Intake Total 105 / 105 Output Total 1600 / 1600 1350 / 2950 Balance -1600 / -1445 -1350 / -2795 105 / 105 Physical Exam Narrative: EXAM NARRATIVE: Patient is feeling fine Euvolemic Saturating well on room air Awake and alert Abdomen soft Nonfocal neuro exam No active chest pain or shortness of Urinary Catheter Management: Casanova: Cath Placed During This Visit: yes Reason for Continuing Indwelling Catheter: Acute Urinary Retention or Obstruction Urinary Catheter Date of Insertion: 12/05/21 Urinary Catheter Time of Insertion: 13:44 Data : 12/11/21 03:10 12/11/21 03:10 A&P Assessment and plan (1) Cardiomyopathy: Status: Acute (2) Gross hematuria: Status: Acute (3) Hypokalemia: Status: Acute (4) Epistaxis: Status: Acute (5) Atrial fibrillation: Status: Acute (6) Chest pain: Status: Acute (7) Acquired hypothyroidism: Status: Acute (8) Diabetes: Status: Acute Qualifiers: Diabetes mellitus type: type 2 Diabetes mellitus buttermaker continuous churn insulin use: without buttermaker continuous churn use Diabetes mellitus complication status: with hyperglycemia Qualified Code(s): E11.65 - Type 2 diabetes mellitus with hyperglycemia Plan Systolic congestive heart failure exacerbation Cut back on Bumex and dc metolazone We will only use p.o. Bumex now Negative fluid balance Cardiorenal THAI: Creatinine stable at 1.6 Persistent hematuria hematoma in blood bladder, CBI at the bedside, urine color is improving, plan to discontinue CBI later today and do manual irrigation if needed Hemoglobin stable for blood loss anemia Hypokalemia: Repleted Mag 2.0 Plan for angiogram once kidney function has slightly improved LifeVest to be arranged for his poor ejection fraction heart failure We will touch base with cardiology whether angiogram can be done next week versus discharge home and then elective angiogram If there is plan to do angiogram once kidney function improves we will plan to discharge him once hematuria resolves completely and he is able to void without the use of Casanova catheter, it might happen over the weekend or possibly Monday, patient prefers to stay here and get angiogram done during this hospitalization if possible I did explain to him the limitations because of the THAI Attestations Medical Necessity Statement*: Continue medical management Time Spent in Patient Care: 15 Coding Level of Care Code Acute Ballet Master/Mistress for g Fwd Diagnoses Cardiomyopathy I42.9 Gross hematuria R31.0 Hypokalemia E87.6 Epistaxis R04.0 Atrial fibrillation I48.91 Chest pain R07.9 Acquired hypothyroidism E03.9 Diabetes E11.65 Diabetes mellitus type: type 2 Diabetes mellitus halfway insulin use: without buttermaker continuous churn use Diabetes mellitus complication status: with hyperglycemia
[2021-12-11 11:36] LABS: Glucose Point of Care 168 mg/dL (70-110)
--- NOTE | 2021-12-11 16:11 | P.PN_ITS ---
Subjective Subjective: Interval history: Patient is euvolemic, discontinued metolazone switch to p.o. Bumex as per med Medications: Reviewed: Yes Vitals/I&O/Wt Last Vital Signs Temp 98.3 F 12/11/21 12:00 Pulse 75 12/11/21 12:00 Resp 20 H 12/11/21 12:00 BP 129/73 12/11/21 12:00 Pulse Ox 94 12/11/21 12:00 12/11/21 12/11/21 12/11/21 06:59 14:59 22:59 Intake Total 210 / 210 Output Total 1350 / 2950 1250 / 1250 Balance -1350 / -2795 -1040 / -1040 Physical Exam Chest: OTHER: Cardio: OTHER: GENERAL: Patient is alert, awake and oriented x3. NECK: No jugular vein distension. HEENT: No cyanosis. No icterus. No pallor. HEART: Regular S1 and S2. No murmur, rub or gallop. LUNGS: Decreased breath bilaterally. ABDOMEN:distended. Positive bowel sounds. No guarding, rebound or tenderness. CENTRAL NERVOUS SYSTEM: Grossly nonfocal. EXTREMITIES: Lower extremities with trace edema bilaterally. Urinary Catheter Management: Casanova: Cath Placed During This Visit: yes Reason for Continuing Indwelling Catheter: Acute Urinary Retention or Obstruction Urinary Catheter Date of Insertion: 12/05/21 Urinary Catheter Time of Insertion: 13:44 Data : 12/11/21 03:10 12/11/21 03:10 A&P Assessment and plan (1) Atrial fibrillation: Heart rate is under control. Continue current regimen. Status: Acute (2) CHF (congestive heart failure): Patient appeared to be in decompensated systolic heart failure has increased abdominal girth, I will start diuresing him with IV Lasix 40 mg twice daily and 20 mg of potassium twice a day. Goal is 1 to 1.5 L negative, continue to monitor creatinine. Planning left heart cath once euvolemic and creatinine is within acceptable range Patient not diuresing well I will add metolazone to the regimen Continue current diuresis with metolazone and IV Bumex or Lasix Patient continues to diurese well with metolazone potassium was replaced. We will continue to replace potassium as well. Continue IV diuresis and metolazone Continues to diurese well we will continue Bumex and metolazone for now, replenish potassium Continue diuresis as patient is in negative balance and getting better improved Doing fine from a cardiovascular perspective has diuresed very well. Lost weight breathing better was able to lay flat on the bed. At this point will back off and switch him to p.o. Lasix 40 mg twice a day. We will discontinue metolazone. Patient has been switched to p.o. Bumex, electrolytes has been replenished through IV and p.o. potassium Status: Acute (3) Acute renal failure: Remained stable. Status: Acute (4) Chest pain: Denies any chest pain. Status: Acute (5) Hematuria: Lovenox is on hold, CT suggestive of possible hematoma could be traumatic possible. Continue to monitor now hematuria settling down we will continue to monitor for now Status: Deleted (6) Cardiomyopathy: Severely depressed LV function at some point need to rule out with left heart cath. We think because of hematuria patient will be treated medically for now and in few weeks we will bring him back for left heart cath once stable anemia and bleeding ray. LifeVest patient agreed before discharge we will place it Status: Acute Attestations Medical Necessity Statement*: Patient require continuation hospitalization for above defined care Coding Level of Care Code Established Pt Acute Student Success Counselor for [place] Fwd Patient Type Established History Detailed Exam Detailed Medical Decision Making Moderate Complexity Diagnoses Atrial fibrillation I48.91 CHF (congestive heart failure) I50.9 Acute renal failure N17.9 Chest pain R07.9 Hematuria R31.9 Cardiomyopathy I42.9
[2021-12-11 17:26] LABS: Glucose Point of Care 209 mg/dL (70-110)
[2021-12-11] MEDS: insulin glargine 100 units/1 mL 15 UNIT SUBCUT (22:08)
[2021-12-12] VITALS (17 sets, daily range): BP systolic 99–120; BP diastolic 56–69; PULSE 54–72; RESP 15–25; TEMP 36.6–36.7; O2SAT 80–97
[2021-12-12 00:27] LABS: Glucose Point of Care 175 mg/dL (70-110)
[2021-12-12 03:40] LABS: Basophils % 0.6 %; Eosinophils # 0.1 10^3/uL (0.0-0.8); Eosinophils % 0.8 %; Hematocrit 29.8 % (42.0-52.0); Hemoglobin 9.9 g/dL (11.7-16.6); Lymphocytes # 1.1 10^3/uL (0.8-4.8); Lymphocytes % 17.8 %; Mean Corpuscular HGB Conc 33.2 g/dL (30.0-36.0); Mean Corpuscular Hemoglobin 28.6 pg (28.0-34.0); Mean Corpuscular Volume 86.1 fl (80-94); Mean Platelet Volume 11.8 fL (7.4-10.4); Monocytes % 16.5 %; Neutrophils # 3.92 10^3/uL (1.8-7.7); Neutrophils % 63.3 %; Nucleated Red Blood Cells % 0 %; Platelet Count 196 10^3/cmm (130-400); Red Blood Count 3.46 10^6/uL (4.1-5.3); Red Cell Distribution Width 13.7 % (12.1-15.1); White Blood Count 6.2 10^3/uL (4.0-10.0)
[2021-12-12 03:57] LABS: Anion Gap 14.7 (5-19); Blood Urea Nitrogen 38 mg/dL (8-23); Calcium 8.6 mg/dL (8.5-10.5); Carbon Dioxide 34 mmol/L (22-29); Chloride 83 mmol/L (98-107); Glucose 151 mg/dL (65-115); Osmolality Calculated 280 mOsm/kg (285-295); Sodium 129 mmol/L (136-145)
[2021-12-12 04:27] LABS: Potassium 2.7 mmol/L (3.5-5.1)
[2021-12-12] MEDS: potassium chloride premix 100 ML 25 MEQ IV (04:45)
[2021-12-12] MEDS: lidocaine 1% 5 ML in potassium chloride premix 100 ML 25 ML IV (06:14)
[2021-12-12 06:38] LABS: Glucose Point of Care 179 mg/dL (70-110)
[2021-12-12] MEDS: insulin lispro 100 unit/1 mL SUBCUT ×3 (09:07→18:20)
[2021-12-12] MEDS: bumetanide 1 mg Tablet PO (09:08)
[2021-12-12] MEDS: magnesium oxide 400 mg tablet PO ×2 (09:08→18:19)
[2021-12-12] MEDS: carvedilol 3.125 mg Tablet PO ×2 (09:08→18:20)
[2021-12-12] MEDS: atorvastatin 40 mg Tablet 20 MG PO (09:08)
[2021-12-12] MEDS: isosorbide mononitrate 20 mg Tablet PO ×2 (09:08→18:19)
[2021-12-12] MEDS: levothyroxine 112 mcg Tablet PO (09:08)
[2021-12-12] MEDS: potassium chloride ER 20 mEq Tablet PO ×2 (09:09→18:19)
--- NOTE | 2021-12-12 10:23 | PM.PN ---
Subjective Subjective: Interval history: Patient is endorsing feeling better, leg swelling has improved, noticed contraction alkalosis Hemoglobin slightly dropped, hematuria significantly improved with CBI No hemodynamic instability Creatinine 1.6 Adequate diuresis with Bumex 1 mg p.o. daily, -2695 mL, fasting blood sugar is normal however POC blood sugar is trending higher Vitals/I&O/Wt Last Vital Signs Temp 98.0 F 12/12/21 08:00 Pulse 61 12/12/21 09:17 Resp 18 12/12/21 09:17 BP 104/56 12/12/21 08:00 Pulse Ox 91 12/12/21 09:17 12/11/21 12/12/21 12/12/21 22:59 06:59 14:59 Output Total 1250 / 2500 300 / 2800 Balance -1250 / -2290 -300 / -2590 Physical Exam Narrative: EXAM NARRATIVE: Patient laying comfortable no No orthopnea PND Euvolemic Significant improvement of leg swelling Dark orange-colored urine in the bag S1, S2 Nonfocal neuro exam Breathing well on room air Urinary Catheter Management: Casanova: Cath Placed During This Visit: yes Reason for Continuing Indwelling Catheter: Acute Urinary Retention or Obstruction Urinary Catheter Date of Insertion: 12/05/21 Urinary Catheter Time of Insertion: 13:44 Data : 12/12/21 02:39 12/12/21 02:39 A&P Assessment and plan (1) Cardiomyopathy: Status: Acute (2) Antiplatelet or antithrombotic long-term use: Status: Acute (3) Gross hematuria: Status: Acute (4) Hypokalemia: Status: Acute (5) Epistaxis: Status: Acute (6) Atrial fibrillation: Status: Acute (7) Shortness of breath: Status: Acute (8) Acute renal failure: Status: Acute (9) CHF (congestive heart failure): Status: Acute (10) Acquired hypothyroidism: Status: Acute (11) Diabetes: Status: Acute Qualifiers: Diabetes mellitus type: type 2 Diabetes mellitus assisted insulin use: without assisted use Diabetes mellitus complication status: with hyperglycemia Qualified Code(s): E11.65 - Type 2 diabetes mellitus with hyperglycemia Plan Acute systolic congestive heart failure exacerbation Currently euvolemic state -20,000 fluid balance Diuretic dose initially was Bumex 2 mg IV daily with metolazone which was escalated to 2 mg IV every 12 hours, and then switched to p.o. Bumex 1 mg daily Metolazone discontinued Contraction alkalosis noted Patient is euvolemic now No orthopnea PND Saturating well on room air Leg swelling improved Has history of coronary artery disease, will need coronary angiogram for poor ejection fraction heart failure once creatinine is slightly stable Plan to discharge him probably around Monday if cleared by cardiology Cardiorenal THAI creatinine plateaued at 1.6 despite aggressive diuresis No signs of hydronephrosis Hematuria has improved Will need a BMP prescription at the time of discharge to keep around creatinine and close follow-up with [facility], Dr. Villarreal is leaving on December 20 he will need follow-up with Dr. Gunter? Gross hematuria Related to traumatic Casanova catheter placement CBI resolved hematuria No significant drop in hemoglobin Appreciate urology recommendations Voiding trial outpatient versus inpatient, will follow up with Dr. Phillips before discharge A. fib No recurrence of A. fib since admission Not a candidate of anticoagulation Will need rate control medication at the time of discharge Hyperglycemia for type 2 diabetes Optimize antihypertensive regimen I will not increase Lantus as fasting sugars are okay would use high intensity sliding scale Hypothyroidism: Continue levothyroxine Severe hypokalemia: Repleted, check mag level Patient's has been tested positive for COVID-19 few days ago, she is at home If possible he should avoid living in the same residence for at least 10 days of quarantine of his Cardiac diet Full code DVT prophylaxis contraindicated: SCDs Attestations Medical Necessity Statement*: Discharge in next 24 hours Time Spent in Patient Care: 15min Coding Level of Care Code Acute Conflicts Analyst for g Fwd Diagnoses Cardiomyopathy I42.9 Antiplatelet or antithrombotic long-term use Z79.02 Gross hematuria R31.0 Hypokalemia E87.6 Epistaxis R04.0 Atrial fibrillation I48.91 Shortness of breath R06.02 Acute renal failure N17.9 CHF (congestive heart failure) I50.9 Acquired hypothyroidism E03.9 Diabetes E11.65 Diabetes mellitus type: type 2 Diabetes mellitus supervisor intermediates insulin use: without assisted use Diabetes mellitus complication status: with hyperglycemia
[2021-12-12] MEDS: lidocaine 1% 5 ML in potassium chloride premix 100 ML 50 ML IV (10:53)
[2021-12-12] MEDS: acetaminophen 500 mg Tablet PO (11:01)
[2021-12-12 11:12] LABS: Magnesium 1.9 mg/dL (1.7-2.3)
--- NOTE | 2021-12-12 11:47 | PM.PN ---
Subjective Subjective: Interval history: Urology follow-up: Has been able to keep the CBI completely off. No further irrigations have been required according to the patient. Urine looks clear this morning. I think it safe from a hematuria perspective to remove the catheter when safe from a medical perspective regarding volume management etc. I reviewed with the nursing staff expectations regarding 6 bottle void, bladder scans to confirm adequate emptying etc. Recommendations: 1. DC Casanova catheter when cleared with hospitalist service. 2. 6 bottle void 3. Bladder scan PVR to confirm adequate emptying 4. Call for increasing hematuria clots etc. Vitals/I&O/Wt Last Vital Signs Temp 98.0 F 12/12/21 08:00 Pulse 61 12/12/21 09:17 Resp 18 12/12/21 09:17 BP 104/56 12/12/21 08:00 Pulse Ox 91 12/12/21 09:17 12/11/21 12/12/21 12/12/21 22:59 06:59 14:59 Intake Total 85 / 85 Output Total 1250 / 2500 300 / 2800 Balance -1250 / -2290 -300 / -2590 85 / 85 Physical Exam Narrative: EXAM NARRATIVE: Alert oriented no acute distress very pleasant cooperative on exam Abdomen nondistended. Genitourinary exam unchanged. Urine is clear with a hint of pink. Catheter functioning well. Bladder nondistended No other changes in physical exam. Urinary Catheter Management: Casanova: Cath Placed During This Visit: yes Reason for Continuing Indwelling Catheter: Acute Urinary Retention or Obstruction Urinary Catheter Date of Insertion: 12/05/21 Urinary Catheter Time of Insertion: 13:44 Data : 12/12/21 02:39 12/12/21 02:39 A&P Assessment and plan (1) Gross hematuria: Has managed well with CBI turned completely off. No requirements for recurrent irrigation. As far as I am concerned the catheter can be removed at any point. Reviewed with the nursing staff management for 6 bottle void and bladder scan for PVR checks. Status: Acute (2) Acute renal failure: Improving Status: Acute Attestations Medical Necessity Statement*: See attending Coding Level of Care Code Acute Client Technical Support Associate for [facility] Diagnoses Gross hematuria R31.0 Acute renal failure N17.9
[2021-12-12 12:06] LABS: Glucose Point of Care 357 mg/dL (70-110)
--- NOTE | 2021-12-12 15:18 | PC.NURSE ---
Verified first with Hospitalist if we can take out limon catheter, Dr. Koo order not to remove it and continue as needed manual irrigation.
--- NOTE | 2021-12-12 17:15 | PM.PN ---
Subjective Subjective: Interval history: Remains euvolemic, shortness of breath has improved, potassium is low which is being replanished Medications: Reviewed: Yes Vitals/I&O/Wt Last Vital Signs Temp 98.0 F 12/12/21 16:00 Pulse 63 12/12/21 16:00 Resp 16 12/12/21 16:00 BP 99/57 12/12/21 16:00 Pulse Ox 96 12/12/21 16:00 12/12/21 12/12/21 12/12/21 06:59 14:59 22:59 Intake Total 440 / 440 100 / 540 Output Total 300 / 2800 600 / 600 Balance -300 / -2590 -160 / -160 100 / -60 Physical Exam Chest: OTHER: Cardio: OTHER: GENERAL: Patient is alert, awake and oriented x3. NECK: No jugular vein distension. HEENT: No cyanosis. No icterus. No pallor. HEART: Regular S1 and S2. No murmur, rub or gallop. LUNGS: Decreased breath bilaterally. ABDOMEN:distended. Positive bowel sounds. No guarding, rebound or tenderness. CENTRAL NERVOUS SYSTEM: Grossly nonfocal. EXTREMITIES: Lower extremities with trace edema bilaterally. Urinary Catheter Management: Casanova: Cath Placed During This Visit: yes Reason for Continuing Indwelling Catheter: Acute Urinary Retention or Obstruction Urinary Catheter Date of Insertion: 12/05/21 Urinary Catheter Time of Insertion: 13:44 Data : 12/12/21 02:39 12/12/21 02:39 A&P Assessment and plan (1) Atrial fibrillation: Heart rate is under control. Continue current regimen. Status: Acute (2) CHF (congestive heart failure): Patient appeared to be in decompensated systolic heart failure has increased abdominal girth, I will start diuresing him with IV Lasix 40 mg twice daily and 20 mg of potassium twice a day. Goal is 1 to 1.5 L negative, continue to monitor creatinine. Planning left heart cath once euvolemic and creatinine is within acceptable range Patient not diuresing well I will add metolazone to the regimen Continue current diuresis with metolazone and IV Bumex or Lasix Patient continues to diurese well with metolazone potassium was replaced. We will continue to replace potassium as well. Continue IV diuresis and metolazone Continues to diurese well we will continue Bumex and metolazone for now, replenish potassium Continue diuresis as patient is in negative balance and getting better improved Doing fine from a cardiovascular perspective has diuresed very well. Lost weight breathing better was able to lay flat on the bed. At this point will back off and switch him to p.o. Lasix 40 mg twice a day. We will discontinue metolazone. Patient has been switched to p.o. Bumex, electrolytes has been replenished through IV and p.o. potassium Continue p.o. Bumex I will increase Bumex to 1 mg twice a day and potassium to 20 meq twice a day, most likely discharge tomorrow patient should be advised to take extra Bumex if you gain more than 3 pound in 2 conjunctive days. Follow-up with Ms. Dawn Pepper in 7 days in cardiology clinic at discharge. LifeVest advised and ordered. Once clear hematuria ray and stable may will proceed with left heart cath as an outpatient. Status: Acute (3) Acute renal failure: Remained stable. Status: Acute (4) Chest pain: Denies any chest pain. Status: Acute (5) Hematuria: As per med and urology Status: Deleted (6) Cardiomyopathy: Severely depressed LV function at some point need to rule out with left heart cath. We think because of hematuria patient will be treated medically for now and in few weeks we will bring him back for left heart cath once stable anemia and bleeding ray. LifeVest patient agreed before discharge we will place it Status: Acute Attestations Medical Necessity Statement*: Patient require continuation hospitalization for the above defined care most like discharge tomorrow. Coding Level of Care Code Established Pt Acute Efficiency Manager for Killian Gorman Patient Type Established History Comprehensive Exam Comprehensive Medical Decision Making High Complexity Diagnoses Atrial fibrillation I48.91 CHF (congestive heart failure) I50.9 Acute renal failure N17.9 Chest pain R07.9 Hematuria R31.9 Cardiomyopathy I42.9
[2021-12-12 17:39] LABS: Glucose Point of Care 332 mg/dL (70-110)
[2021-12-12 20:41] LABS: Potassium 3.1 mmol/L (3.5-5.1)
[2021-12-12 20:46] LABS: Glucose Point of Care 350 mg/dL (70-110)
--- NOTE | 2021-12-12 21:06 | PC.NURSE ---
Shift Note Frequent safety and comfort rounds continue. Orders and/or nursing care completed as indicated. Patient monitored for response to intervention and treatment(s). Pt noted to have spo2 drop to 84% when sleeping. manual irrigation w/250 cc in the limon due to small blood clots noted. Education provided includes up ad amaya, sitting up in chair and administration with oxygen therapy when sleeping. 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 Will continue to monitor.
--- NOTE | 2021-12-12 21:31 | PC.NURSE ---
Life vest ordered Verified with reeling operator.
[2021-12-12] MEDS: insulin glargine 100 units/1 mL 15 UNIT SUBCUT (21:53)
[2021-12-13 03:53] VITALS: BP 116/63; PULSE 61; RESP 15; TEMP 36.6; O2SAT 99
[2021-12-13 04:20] LABS: Basophils % 0.6 %; Eosinophils # 0.2 10^3/uL (0.0-0.8); Eosinophils % 2.5 %; Hematocrit 31.6 % (42.0-52.0); Hemoglobin 10.5 g/dL (11.7-16.6); Lymphocytes # 1.3 10^3/uL (0.8-4.8); Lymphocytes % 20.7 %; Mean Corpuscular HGB Conc 33.2 g/dL (30.0-36.0); Mean Corpuscular Hemoglobin 28.2 pg (28.0-34.0); Mean Corpuscular Volume 84.9 fl (80-94); Mean Platelet Volume 11.9 fL (7.4-10.4); Monocytes # 0.9 10^3/uL (0.2-0.9); Monocytes % 14.6 %; Neutrophils # 3.87 10^3/uL (1.8-7.7); Neutrophils % 60.7 %; Nucleated Red Blood Cells % 0 %; Platelet Count 203 10^3/cmm (130-400); Red Blood Count 3.72 10^6/uL (4.1-5.3); Red Cell Distribution Width 13.7 % (12.1-15.1); White Blood Count 6.4 10^3/uL (4.0-10.0)
[2021-12-13 04:50] LABS: Anion Gap 20.1 (5-19); Blood Urea Nitrogen 47 mg/dL (8-23); Calcium 9.3 mg/dL (8.5-10.5); Carbon Dioxide 28 mmol/L (22-29); Chloride 86 mmol/L (98-107); Glucose 148 mg/dL (65-115); Magnesium 2.2 mg/dL (1.7-2.3); Osmolality Calculated 287 mOsm/kg (285-295); Potassium 3.1 mmol/L (3.5-5.1); Sodium 131 mmol/L (136-145)
[2021-12-13 05:56] VITALS: PULSE 59
[2021-12-13 06:51] LABS: Glucose Point of Care 174 mg/dL (70-110)
[2021-12-13 08:57] VITALS: PULSE 60; RESP 18; O2SAT 95
[2021-12-13] MEDS: magnesium oxide 400 mg tablet PO (10:16)
[2021-12-13] MEDS: carvedilol 3.125 mg Tablet PO (10:16)
[2021-12-13] MEDS: bumetanide 1 mg Tablet PO (10:16)
[2021-12-13] MEDS: potassium chloride ER 20 mEq Tablet 40 MEQ PO (10:16)
[2021-12-13] MEDS: atorvastatin 40 mg Tablet 20 MG PO (10:17)
[2021-12-13] MEDS: levothyroxine 112 mcg Tablet PO (10:17)
[2021-12-13] MEDS: isosorbide mononitrate 20 mg Tablet PO (10:17)
[2021-12-13 10:34] VITALS: BP 111/66; PULSE 63; RESP 17; O2SAT 94
--- NOTE | 2021-12-13 11:14 | P.PN_ITS ---
Subjective Subjective: Interval history: Urology follow-up: Urines still has faint hint of pinkish time and some small clots. No CBI required. No manual irrigation required to keep the catheter open. We will go ahead and remove the catheter today as we had discussed yesterday. 6 bottle void, PVR bladder scans to confirm adequate emptying. Reviewed with nursing staff Vitals/I&O/Wt Last Vital Signs Temp 98 F 12/13/21 03:53 Pulse 63 12/13/21 10:34 Resp 17 12/13/21 10:34 BP 111/66 12/13/21 10:34 Pulse Ox 94 12/13/21 10:34 12/12/21 12/13/21 12/13/21 22:59 06:59 14:59 Intake Total 780 / 1580 100 / 1680 Output Total 900 / 1500 300 / 1800 Balance -120 / 80 -200 / -120 Physical Exam Narrative: EXAM NARRATIVE: Alert oriented no acute distress. Pleasant cooperative throughout exam HEENT atraumatic normocephalic Neck good range of motion Urine is yellow with some pink tinge. No labored respiration. No acute wheezing Otherwise no change in physical exam Urinary Catheter Management: Casanova: Cath Placed During This Visit: yes Reason for Continuing Indwelling Catheter: Acute Urinary Retention or Obstruction Urinary Catheter Date of Insertion: 12/05/21 Urinary Catheter Time of Insertion: 13:44 Data : 12/13/21 03:46 12/13/21 03:46 A&P Assessment and plan (1) Gross hematuria: We will remove the catheter today, 6 bottle void, PVR checks. Assuming the above turns out well with no recurrent bleeding or recurrent retention I do not think he will need a catheter at home. Instructed the nurse to call if they have any questions about flow events etc. Status: Acute (2) Acute renal failure: Improving Status: Acute Attestations Medical Necessity Statement*: See attending Coding Level of Care Code Acute Digital Analytics Manager for Killian Gorman Diagnoses Gross hematuria R31.0 Acute renal failure N17.9
--- NOTE | 2021-12-13 11:19 | PC.NURSE ---
Spoke with Dr. Phillips regarding limon catheter. Received orders to discontinue the catheter. Will do the 6 void trial to compare urine clarity and bladder scan after voids to be sure patient is not retaining urine.
--- NOTE | 2021-12-13 11:32 | PC.SOCIAL ---
IMM Update pg 2 of IMM updated and reviewed w/ patient. Copy provided. Copy in chart signed.
[2021-12-13 11:37] LABS: Glucose Point of Care 352 mg/dL (70-110)
[2021-12-13] MEDS: insulin lispro 100 unit/1 mL SUBCUT (11:48)
--- NOTE | 2021-12-13 14:24 | PC.NURSE ---
Patient limon was discontinued at 11:15. Patient has voided 3 times sense. Urine is clearing up, however patient urinated 50ml the first time, with 377 left in bladder. The second void was 50 ml, shortly after patient voided another 100ml. 345ml left in bladder.
[2021-12-13 14:45] VITALS: BP 111/66; PULSE 63; RESP 18; O2SAT 92
--- NOTE | 2021-12-13 15:38 | P.DS_ITS ---
Discharge Providers Date of Admission: 12/04/21 14:46 Date of Discharge: December 13, 2021 Attending Provider at Admission: Renetta Koo MD Attending Provider at Discharge: Haris Tanner DO Consults: Dr. Acevedo Cardiology Primary Care Provider: Cynthia Carranza MD Diagnoses at Discharge Discharge Diagnosis (1) Gross hematuria: Status: Acute (2) Acute renal failure: Status: Acute (3) Cardiomyopathy: Status: Acute (4) CHF (congestive heart failure): Status: Acute (5) Hypertension: Status: Acute Qualifiers: Hypertension type: essential hypertension Qualified Code(s): I10 - Essential (primary) hypertension (6) Acquired hypothyroidism: Status: Acute (7) Hypercholesteremia: Status: Acute (8) Diabetes: Status: Acute Qualifiers: Diabetes mellitus type: type 2 Diabetes mellitus petroleum terminal plant operator insulin use: without petroleum terminal plant operator use Diabetes mellitus complication status: with hyperglycemia Qualified Code(s): E11.65 - Type 2 diabetes mellitus with hyperglycemia (9) Hypokalemia: Status: Acute (10) Atrial fibrillation: Status: Acute (11) Antiplatelet or antithrombotic long-term use: Status: Acute Reason for Visit Reason for Visit: Chest Pain Hospital Course Hospital Course Patient was admitted for management of CHF exacerbation, he has history of systolic congestive heart failure EF 20 to 25%, LifeVest to be arranged by flat folder, he was diuresed aggressively with IV Bumex 2 mg every 12 hours, which was deescalated to 1 mg p.o. daily due to contraction alkalosis. Creatinine has remained stable around 1.6-1.7, aggressive diuresis with negative fluid balance 20,000 since admission & significant weight loss, patient's leg swelling has improved, flat folder is planning for coronary angiogram once his creatinine has improved which might happen in next 3 to 4 weeks however not indicated immediately, he will stay today because of severe hypokalemia otherwise he can be discharged home with a LifeVest once cleared by flat folder Of note, he developed A. fib without RVR at the time of admission however he remained in normal sinus rhythm after initial episode, not a good candidate to be on anticoagulating agent because of hematuria, he was treated with aspirin and Plavix secondary to history of 3 coronary stents which were placed by Dr. Villarreal few years ago He developed hematuria after Casanova catheter placement, CT scan showed hematoma in the bladder, no hydronephrosis, Dr. Phillips was consulted who recommended CBI, his urine color has improved hemoglobin has not dropped significantly, he remained hemodynamically stable, will touch base with urologist whether he wants to start voiding trial here versus outpatient in his clinic. On 12/13/2021 arrangements were made for LifeVest; which will be measured and applied at home. She has had no arrhythmias while in the hospital. Unfortunately the patient is having urologic issues. The Casanova was removed earlier this morning and the patient continues to have hematuria with clots. Dr. Phillips will revisit patient later this afternoon to determine if patient can go home with or without Casanova and/or Flomax. Physical Exam Narrative: EXAM NARRATIVE: Patient is in no acute distress. Vital signs are stable heart is irregular with rate controlled no loud murmurs. Lungs clear to auscultation without wheezes rales or rhonchi abdomen soft nontender nondistended positive bowel sounds extremities no edema. Alert and oriented to person place time and situation Urinary Catheter Management: Casanova: Cath Placed During This Visit: yes, but has since been removed by the nurse Reason for Continuing Indwelling Catheter: Acute Urinary Retention or Obstruction Urinary Catheter Date of Insertion: 12/05/21 Urinary Catheter Time of Insertion: 13:44 Date Urinary Catheter Removed: 12/13/21 Time Urinary Catheter Discontinued: 11:15 Discharge Data Studies Completed and Pending Completed Studies During Hospitalization Category Date Time Status CT abdomen pelvis con [id number] Urgent Cat Scan 12/08/21 10:11 Completed XR chest 1V portable [id number] Urgent Exams 12/04/21 11:59 Completed Pending at discharge Category Date Time Status Factor VIII Activity Clotting Routine Lab 12/08/21 10:35 Received Magnesium Routine Lab 12/13/21 08:00 Ordered Von Willebrand Ristocetin(Rcf) Routine Lab 12/08/21 10:35 Received Radiology Impressions Chest X-Ray 12/04/21 11:59 IMPRESSION: No acute findings. Abdomen/Pelvis CT 12/08/21 10:11 IMPRESSION: 1. Casanova catheter in place with decompressed bladder. Increased attenuation blood products/hematoma within the bladder. Small amount of nondependent air in the dome of the bladder likely due to recent Casanova placement. Consider further evaluation with cystoscopy or CT urogram to exclude underlying bladder lesion. 2. Mild prostate enlargement. 3. No obstructing renal or renal calculi. No hydronephrosis. 4. Dense bulky cholelithiasis. Gallbladder is contracted. 5. Small amount of perihepatic and perisplenic ascites. Small amount of fluid in the left pericolic gutter. Mild body wall anasarca. 6. Small left pleural effusion. 7. Small noncalcified nodule right middle lobe measuring 3.7 mm. Recommend 12 month follow-up. Notified Renetta Koo MD at 12/08/2021 2:22 PM. Laboratory Results WBC 6.4 10^3/uL (4.0-10.0) 12/13/21 03:46 RBC 3.72 10^6/uL (4.1-5.3) L 12/13/21 03:46 Hgb 10.5 g/dL (11.7-16.6) L 12/13/21 03:46 Hct 31.6 % (42.0-52.0) L 12/13/21 03:46 MCV 84.9 fl (80-94) 12/13/21 03:46 MCH 28.2 pg (28.0-34.0) 12/13/21 03:46 MCHC 33.2 g/dL (30.0-36.0) 12/13/21 03:46 RDW 13.7 % (12.1-15.1) 12/13/21 03:46 Plt Count 203 10^3/cmm (130-400) 12/13/21 03:46 MPV 11.9 fL (7.4-10.4) H 12/13/21 03:46 Neut % (Auto) 60.7 % 12/13/21 03:46 Lymph % (Auto) 20.7 % 12/13/21 03:46 Overton % (Auto) 14.6 % 12/13/21 03:46 Eos % (Auto) 2.5 % 12/13/21 03:46 Baso % (Auto) 0.6 % 12/13/21 03:46 Neut # (Auto) 3.87 10^3/uL (1.8-7.7) 12/13/21 03:46 Lymph # (Auto) 1.3 10^3/uL (0.8-4.8) 12/13/21 03:46 Overton # (Auto) 0.9 10^3/uL (0.2-0.9) 12/13/21 03:46 Eos # (Auto) 0.2 10^3/uL (0.0-0.8) 12/13/21 03:46 Baso # (Auto) 0.0 10^3/uL (0.0-0.1) 12/13/21 03:46 Nucleated RBC % (auto) 0 % 12/13/21 03:46 Nucleated RBCs # 0.0 /100WBC 12/13/21 03:46 PT 15.00 SECONDS (12.1-14.9) H 12/08/21 10:35 INR 1.15 (0.8-1.2) 12/08/21 10:35 Sodium 131 mmol/L (136-145) L 12/13/21 03:46 Potassium 3.1 mmol/L (3.5-5.1) L 12/13/21 03:46 Chloride 86 mmol/L (98-107) L 12/13/21 03:46 Carbon Dioxide 28 mmol/L (22-29) 12/13/21 03:46 Anion Gap 20.1 (5-19) H 12/13/21 03:46 BUN 47 mg/dL (8-23) H 12/13/21 03:46 Creatinine 1.8 mg/dL (0.7-1.2) H 12/13/21 03:46 GFR Calculation Not Reportable 12/13/21 03:46 Glucose 148 mg/dL (65-115) H 12/13/21 03:46 POC Glucose 352 mg/dL (70-110) H 12/13/21 11:34 Estimat Average Glucose 197 12/09/21 02:56 Hemoglobin A1c 8.5 % (4.0-6.0) H 12/09/21 02:56 Calculated Osmolality 287 mOsm/kg (285-295) 12/13/21 03:46 Calcium 9.3 mg/dL (8.5-10.5) 12/13/21 03:46 Magnesium 2.2 mg/dL (1.7-2.3) 12/13/21 03:46 Total Bilirubin 1.3 mg/dL (0.15-1.2) H 12/04/21 12:57 AST 27 U/L (0-40) 12/04/21 12:57 ALT 40 U/L (0-41) 12/04/21 12:57 Alkaline Phosphatase 118 IU/L (40-130) 12/04/21 12:57 Troponin T Baseline 87 ng/L (0-15) H 12/04/21 12:57 Troponin T 120 Minute 29.77 ng/L (0-15) H 12/04/21 14:51 Delta Troponin T -57.23 ABS# (0-10) L 12/04/21 14:51 Troponin T Hi Sens 6Hr 115.5 ng/L (0-15) H 12/04/21 19:05 Troponin T Hi Sens 6Hr Delta 28.5 ng/L (0-12) H* 12/04/21 19:05 NT-Pro-B Natriuret Pep 3256 pg/mL (0-125) H 12/04/21 12:57 Total Protein 6.5 g/dL (6.6-8.7) L 12/04/21 12:57 Albumin 4.0 g/dL (3.5-5.2) 12/04/21 12:57 Globulin 2.5 g/dL (1.3-4.6) 12/04/21 12:57 Lipase 45 U/L (13-60) 12/04/21 12:57 TSH 0.19 uIU/mL (0.27-4.20) L 12/04/21 14:51 Vitals Last Vital Signs Temp 98 F 12/13/21 03:53 Pulse 63 12/13/21 14:45 Resp 18 12/13/21 14:45 BP 111/66 12/13/21 14:45 Pulse Ox 92 12/13/21 14:45 Discharge Plan Discharge Patient Disposition: Home Condition: Serious Prescriptions: New bumetanide 1 mg Tablet 1 mg PO DAILY 30 Days Qty: 30 0RF Klor-Con M20 20 mEq Tablet,Er Particles/Crystals 40 meq PO BID Qty: 120 0RF Magnesium Oxide [Magox] 400 mg PO BID 30 Days Qty: 60 0RF Continued aspirin [Adult Aspirin Regimen] 81 mg tablet,delayed release (DR/EC) 81 mg PO DAILY 0RF metformin 1,000 mg tablet 500 mg PO BID 0RF Rx Instructions: Take 1 tablet by mouth twice daily carvedilol 3.125 mg tablet 3.125 mg PO BID Qty: 60 6RF Rx Instructions: must administer with a meal/food potassium chloride 20 mEq tablet extended release 20 meq PO DAILY Qty: 90 3RF Hold Instructions: Doctor's Order nitroglycerin 0.4 mg tablet, sublingual 0.4 mg sublingual Q5M Qty: 30 3RF Rx Instructions: do not exceed 3 doses per episode glimepiride 4 mg tablet 4 mg PO BID 90 Days Qty: 180 3RF levothyroxine 112 mcg tablet 112 mcg PO DAILY Qty: 90 3RF sitagliptin 100 mg tablet 100 mg PO DAILY Qty: 90 3RF atorvastatin 20 mg tablet 20 mg PO DAILY 90 Days Qty: 90 3RF lisinopril 10 mg Tablet 10 mg PO DAILY 0RF Held clopidogrel 75 mg tablet 75 mg PO DAILY 90 Days Qty: 90 3RF Hold Instructions: Resume on 12/17/21. until blood in urine resolves Discontinued furosemide 40 mg tablet 40 mg PO DAILY Qty: 90 3RF Hold Instructions: Doctor's Order Discharge Orders: Discharge Order (Routine); Ordered 12/13/21 Ordered By: Haris Tanner Other Ambulatory Orders: Basic Metabolic Panel (Routine) Timeframe: 3 Days Facility: [facility] - Location: Lab - Main Lab Ordered By: Haris Tanner Referrals: Cynthia Carranza MD [Primary Care Provider] - 12/20/21 10:30 am (You will have BMP Bloodwork done at this time.) Discharge Diet: Cardiac, Low Cholesterol and Low Fat Discharge Activity: Increase activity as tolerated Patient Instructions: Bumetanide (By mouth) (Bumex), Potassium Supplement (By mouth) (Klor-Con, Klor-Con 10, K-Tab, K-Vescent), Magnesium Oxide (By mouth) (Mag-Ox 400, [facility]..., Opioid Safety Activity Restrictions/Additional Instructions: BMP lab draw to check potassium in 3 days Discharge Attestations Time Spent in Discharge Care*: greater than 30 min Quality Metrics Clinical Quality Measures [ No reported AMI, CVA or VTE this stay] Coding Level of Care Code Acute Chg FW DC note Diagnoses Gross hematuria R31.0 Acute renal failure N17.9 Cardiomyopathy I42.9 CHF (congestive heart failure) I50.9 Hypertension I10 Hypertension type: essential hypertension Acquired hypothyroidism E03.9 Hypercholesteremia E78.00 Diabetes E11.65 Diabetes mellitus type: type 2 Diabetes mellitus petroleum terminal 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
--- NOTE | 2021-12-13 16:00 | PC.NURSE ---
Spoke with patient about possibility of going home with limon catheter. Patient declined this and said I will not go home with a catheter. My bladder just needs time to get used to peeing again.
--- NOTE | 2021-12-13 16:15 | PC.NURSE ---
Life vest order approved. Patient will be fitted with life vest at home residence.
[2021-12-13 16:46] VITALS: BP 111/66; PULSE 63; RESP 18; O2SAT 92
--- NOTE | 2021-12-13 17:00 | PC.NURSE ---
Patient IV discontinued. Patient d/c education provided. No questions or concerns. Patient left via wheelchair with spouse.
--- NOTE | 2021-12-13 18:21 | P.PN_ITS ---
Subjective Subjective: Interval history: Urine started clearing up, Casanova's catheter has been pulled out Medications: Reviewed: Yes Vitals/I&O/Wt Last Vital Signs Temp 98 F 12/13/21 03:53 Pulse 63 12/13/21 16:46 Resp 18 12/13/21 16:46 BP 111/66 12/13/21 16:46 Pulse Ox 92 12/13/21 16:46 12/13/21 12/13/21 12/13/21 06:59 14:59 22:59 Intake Total 100 / 1680 Output Total 300 / 1800 236 / 236 Balance -200 / -120 -236 / -236 Physical Exam 2 Chest: OTHER: Cardio: OTHER: GENERAL: Patient is alert, awake and oriented x3. NECK: No jugular vein distension. HEENT: No cyanosis. No icterus. No pallor. HEART: Regular S1 and S2. No murmur, rub or gallop. LUNGS: Decreased breath bilaterally. ABDOMEN:distended. Positive bowel sounds. No guarding, rebound or tenderness. CENTRAL NERVOUS SYSTEM: Grossly nonfocal. EXTREMITIES: Lower extremities with trace edema bilaterally. Urinary Catheter Management: Casanova: Cath Placed During This Visit: yes, but has since been removed by the nurse Reason for Continuing Indwelling Catheter: Acute Urinary Retention or Obstruction Urinary Catheter Date of Insertion: 12/05/21 Urinary Catheter Time of Insertion: 13:44 Date Urinary Catheter Removed: 12/13/21 Time Urinary Catheter Discontinued: 11:15 Data : 12/13/21 03:46 12/13/21 03:46 A&P Assessment and plan (1) Atrial fibrillation: Heart rate is under control. Continue current regimen. Status: Acute (2) CHF (congestive heart failure): Patient appeared to be in decompensated systolic heart failure has increased abdominal girth, I will start diuresing him with IV Lasix 40 mg twice daily and 20 mg of potassium twice a day. Goal is 1 to 1.5 L negative, continue to monit or creatinine. Planning left heart cath once euvolemic and creatinine is within acceptable range Patient not diuresing well I will add metolazone to the regimen Continue current diuresis with metolazone and IV Bumex or Lasix Patient continues to diurese well with metolazone potassium was replaced. We will continue to replace potassium as well. Continue IV diuresis and metolazone Continues to diurese well we will continue Bumex and metolazone for now, replenish potassium Continue diuresis as patient is in negative balance and getting better improved Doing fine from a cardiovascular perspective has diuresed very well. Lost weight breathing better was able to lay flat on the bed. At this point will back off and switch him to p.o. Lasix 40 mg twice a day. We will discontinue me tolazone. Patient has been switched to p.o. Bumex, electrolytes has been replenished through IV and p.o. potassium Continue p.o. Bumex I will increase Bumex to 1 mg twice a day and potassium to 20 meq twice a day, most likely discharge tomorrow patient should be advised to take extra Bumex if you gain more than 3 pound in 2 conjunctive days. Follow-up with Dawn Pepper in 7 days in cardiology clinic at discharge. LifeVest advised and ordered. Once clear hematuria ray and stable may will proceed with left heart cath as an outpatient. Continue treating medically as above. Appeared to be euvolemic upon discharge patient will be placed on Bumex p.o. Status: Acute (3) Acute renal failure: Slightly worsened. Already backed off diuretics Status: Acute (4) Chest pain: Denies any chest pain. Status: Acute (5) Hematuria: As per med and urology Status: Deleted (6) Cardiomyopathy: Severely depressed LV function at some point need to rule out with left heart cath. We think because of hematuria patient will be treated medically for now and in few weeks we will bring him back for left heart cath once stable anemia and bleeding ray. 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
[2021-12-14 14:08] LABS: Factor VIII Activity Clotting 253 % normal (50-180); Von Willebrand Ristocetin(Rcf) 263 % normal (42-200)
== END 2021-12-13 17:00 | disposition home or self-care (01) | DRG 291 ==
LOC: ER 14:46 → ER IP 17:49 → CSU 12-05 14:11
PROVIDERS: Internal Medicine Cardiovascular Disease; Admitting Provider Internal Medicine; Emergency Provider Emergency Medicine; PCP Family Medicine; Visit Provider Internal Medicine
DX: I11.0 Hypertensive heart disease with heart failure (principal); I50.23 Acute on chronic systolic (congestive) heart failure; N17.9 Acute kidney failure, unspecified; E78.5 Hyperlipidemia, unspecified; E03.9 Hypothyroidism, unspecified; E11.65 Type 2 diabetes mellitus with hyperglycemia; I25.2 Old myocardial infarction; I25.10 Atherosclerotic heart disease of native coronary artery without angina pectoris; Z95.5 Presence of coronary angioplasty implant and graft; I48.91 Unspecified atrial fibrillation; E78.00 Pure hypercholesterolemia, unspecified; R07.89 Other chest pain; R31.0 Gross hematuria; R04.0 Epistaxis; N32.89 Other specified disorders of bladder; I42.9 Cardiomyopathy, unspecified; Z79.84 Long term (current) use of oral hypoglycemic drugs; Z79.82 Long term (current) use of aspirin
CPT/HCPCS: 36415; 36416; 51702; 71045; 74176; 80048; 80053; 82962; 83036; 83690; 83735; 83880; 84132; 84443; 84484; 85014; 85018; 85025; 85240; 85245; 85610; 87635; 93005; 96372; 96374; 96375; 97116; 97163; 99285; J1650; J1815 ×2; J1940; J3475; J3480; J3490

== ENCOUNTER 2021-12-15 05:19 | Emergency (ER) | payer MEDICARE, BC, SELFPAY ==
[2021-12-15 05:40] VITALS: BP 88/57; PULSE 54; RESP 16; TEMP 36.6; O2SAT 98; BMI 28.0
--- NOTE | 2021-12-15 06:02 | XR_ITS ---
WS: [id number] XR chest 1V portable [id number] REASON FOR EXAM: dyspnea/cough FINDINGS: The chest is unchanged compared to 12/04/2021. Mild tortuosity of the thoracic aorta. Mild cardiomegaly. Calcified granulomatous disease in both hemithoraces. No acute pulmonary parenchymal or pleural abnormality. Moderate degenerative spondylosis in the mid and lower thoracic spine. XR/XR chest 1V portable [id number] IMPRESSION: No acute chest abnormality.
--- NOTE | 2021-12-15 06:03 | W.ED.WEAKNES ---
HPI - Weakness General: Chief complaint: Weakness Stated complaint: WEAKNESS Time Seen by Provider: 12/15/21 05:52 History of Present Illness: 76-year-old male presents emergency room complaining of generalized weakness. Patient fell last night while in his home he was down for about 15 minutes and was able to get himself up. He states he felt he lost his balance and stumbled and went down. He scratched his left arm pretty good had a small abrasion. He was recently in the hospital. Patient has severe ischemic cardiomyopathy with an EF of 20%. He noted his blood pressure and heart rate were low overnight. He has a bottle of water at the bedside he has been drinking. No chest pain at this time. MD Complaint: generalized weakness Onset (ago): day(s) Duration: constant Location: generalized Migration: none Severity: moderate Quality: tingling Relieving factors: none Exacerbating factors: none Associated symptoms: Reports decreased appetite, easy bruising and short of breath; Denies chest pain, chills, confusion, melena, diaphoresis, dysuria, fever(s), headache(s), myalgias, nausea, rash, syncope or vomiting Review of Systems Const: Denies: fever(s), chills or diaphoresis ENMT: Denies: throat pain, ear or mastoid pain, nasal discharge or nasal congestion Card: Denies: chest pain or syncope Resp: Denies: dyspnea, productive cough or non-productive cough GI: Denies: nausea, vomiting or melena : Denies: dysuria Skin/Breast: Denies: rash or pruritus Neuro: Denies: headache(s) or confusion See/Lymph: Reports: easy bruising [facility] ED PFSH: Medical History Acquired hypothyroidism Acute renal failure Atrial fibrillation Atrial fibrillation, new onset Cardiomyopathy CHF (congestive heart failure) Diabetes Hematuria Hypercholesteremia Hypertension Hypothalamic hypothyroidism Shortness of breath Surgical History History of coronary angioplasty History of hand surgery Family History Father , AT AGE 83 Heart disease Mother , AT AGE 80 Heart disease Social History (Reviewed 12/20/21 @ 07:54 by HALEY Kat Smoking and tobacco status: never smoked Alcohol intake: never Marital status: Current occupational status: retired History of recent travel: No Physical Exam Const: GENERAL APPEARANCE: cooperative and comfortable ORIENTATION/CONSCIOUSNESS: Yes awake, Yes oriented to person, Yes oriented to place and Yes oriented to time HENMT: COMMON NORMALS: normocephalic and atraumatic HEAD & SCALP: normocephalic and atraumatic Resp: COMMON NORMALS: normal respiratory effort, No retractions and No use of accessory muscles AUSCULTATION: crackles Cardio: COMMON NORMALS: regular rhythm and No murmurs present (Cardio) RATE: bradycardic RHYTHM: regular rhythm GI: COMMON NORMALS: Soft to palpation and No hepatosplenomegaly present AUSCULTATION: Yes normoactive bowel sounds PALPATION: Yes Soft to palpation, No Tenderness to palpation present (GI), No Guarding due to palpation present (GI) and Yes No hepatosplenomegaly present Extremity: COMMON NORMALS: normal to inspection, capillary refill normal, no clubbing, cyanosis or edema, no calf tenderness and no pedal edema Neuro: SENSORIUM/ORIENTATION: Yes oriented to person, Yes oriented to place and Yes oriented to time Skin: COMMON NORMALS: no rashes or lesions noted GENERAL SKIN EXAM: no rashes or lesions noted Course Vital Signs: Vital signs: Vital Signs Temperature 98.2 F 12/15/21 11:40 Pulse Rate 55 L 12/15/21 12:04 Respiratory Rate 18 12/15/21 12:04 Blood Pressure 101/56 12/15/21 12:04 Pulse Oximetry 98 12/15/21 12:04 MDM - Weakness Medical Decision Making Mild acute kidney failure in hyponatremia. He is essentially asymptomatic from his hyponatremia. We will hold his Bumex tomorrow have him recheck again with his primary care doc in 2 days if he has any worsening or change symptoms return. Patient at this time would prefer to make medication adjustments treat as an outpatient patient has severe cardiomyopathy and is being fitted for LifeVest today. Medical Records I reviewed the patient's medical records. Lab Data I reviewed the patient's lab results. : 12/15/21 06:02 12/15/21 06:02 Radiology Impressions Chest X-Ray 12/15/21 06:02 IMPRESSION: No acute chest abnormality. Laboratory Results WBC 7.2 10^3/uL (4.0-10.0) 12/15/21 06:02 RBC 3.99 10^6/uL (4.1-5.3) L 12/15/21 06:02 Hgb 11.0 g/dL (11.7-16.6) L 12/15/21 06:02 Hct 34.3 % (42.0-52.0) L 12/15/21 06:02 MCV 86.0 fl (80-94) 12/15/21 06:02 MCH 27.6 pg (28.0-34.0) L 12/15/21 06:02 MCHC 32.1 g/dL (30.0-36.0) 12/15/21 06:02 RDW 13.9 % (12.1-15.1) 12/15/21 06:02 Plt Count 175 10^3/cmm (130-400) 12/15/21 06:02 MPV 12.4 fL (7.4-10.4) H 12/15/21 06:02 Neut % (Auto) 73.4 % 12/15/21 06:02 Lymph % (Auto) 13.6 % 12/15/21 06:02 [place] % (Auto) 10.6 % 12/15/21 06:02 Eos % (Auto) 0.7 % 12/15/21 06:02 Baso % (Auto) 0.3 % 12/15/21 06:02 Neut # (Auto) 5.28 10^3/uL (1.8-7.7) 12/15/21 06:02 Lymph # (Auto) 1.0 10^3/uL (0.8-4.8) 12/15/21 06:02 [place] # (Auto) 0.8 10^3/uL (0.2-0.9) 12/15/21 06:02 Eos # (Auto) 0.1 10^3/uL (0.0-0.8) 12/15/21 06:02 Baso # (Auto) 0.0 10^3/uL (0.0-0.1) 12/15/21 06:02 Nucleated RBC % (auto) 0 % 12/15/21 06:02 Nucleated RBCs # 0.0 /100WBC 12/15/21 06:02 Sodium 123 mmol/L (136-145) L 12/15/21 06:02 Potassium 3.9 mmol/L (3.5-5.1) 12/15/21 06:02 Chloride 82 mmol/L (98-107) L 12/15/21 06:02 Carbon Dioxide 22 mmol/L (22-29) 12/15/21 06:02 Anion Gap 22.9 (5-19) H 12/15/21 06:02 BUN 69 mg/dL (8-23) H 12/15/21 06:02 Creatinine 2.4 mg/dL (0.7-1.2) H 12/15/21 06:02 GFR Calculation Not Reportable 12/15/21 06:02 Glucose 282 mg/dL (65-115) H 12/15/21 06:02 Calculated Osmolality 286 mOsm/kg (285-295) 12/15/21 06:02 Calcium 9.0 mg/dL (8.5-10.5) 12/15/21 06:02 Total Bilirubin 0.7 mg/dL (0.15-1.2) 12/15/21 06:02 AST 25 U/L (0-40) 12/15/21 06:02 ALT 31 U/L (0-41) 12/15/21 06:02 Alkaline Phosphatase 117 IU/L (40-130) 12/15/21 06:02 Creatine Kinase 54 U/L (39-308) 12/15/21 06:02 Total Protein 6.4 g/dL (6.6-8.7) L 12/15/21 06:02 Albumin 3.7 g/dL (3.5-5.2) 12/15/21 06:02 Globulin 2.7 g/dL (1.3-4.6) 12/15/21 06:02 Urine Color Yellow (Yellow) 12/15/21 09:10 Urine Appearance Clear (CLEAR) 12/15/21 09:10 Urine pH 5 (5-7) 12/15/21 09:10 Ur Specific [place] 1.020 (1.005-1.030) 12/15/21 09:10 Urine Protein 1+ (Negative) H 12/15/21 09:10 Urine Glucose (UA) Norm (Normal) 02/09/22 09:10 Urine Ketones Negative (Negative) 12/15/21 09:10 Urine Blood 3+ (Negative) H 12/15/21 09:10 Urine Nitrate Negative (Negative) 12/15/21 09:10 Urine Bilirubin Neg (Negative) 12/15/21 09:10 Urine Urobilinogen Norm mg/dL (Negative) 12/15/21 09:10 Ur Leukocyte Esterase Negative (Negative) 12/15/21 09:10 Urine RBC 25-40 /hpf (0-2) H 12/15/21 09:10 Urine WBC 10-15 /hpf (0-5) H 12/15/21 09:10 Ur Squamous Epith Cells 0-4 /hpf (0-5) H 12/15/21 09:10 Ur Transition Epith Cell 0-4 /hpf 12/15/21 09:10 Amorphous Sediment Not Reportable 12/15/21 09:10 Urine Bacteria 1+ /hpf (NONE) H 12/15/21 09:10 Hyaline Casts 40-55 /lpf H 12/15/21 09:10 Coarse Granular Casts Rare /lpf 12/15/21 09:10 Urine Mucus Trace /hpf 12/15/21 09:10 Discharge Plan Discharge Patient Disposition: Home Clinical Impression: CHF (congestive heart failure), Hyponatremia, Acute on chronic kidney failure Condition: Stable Prescriptions: No Action aspirin [Adult Aspirin Regimen] 81 mg tablet,delayed release (DR/EC) 81 mg PO DAILY 0RF metformin 1,000 mg tablet 500 mg PO BID 0RF Rx Instructions: Take 1 tablet by mouth twice daily potassium chloride 20 mEq tablet extended release 20 meq PO DAILY Qty: 90 3RF Hold Instructions: Doctor's Order nitroglycerin 0.4 mg tablet, sublingual 0.4 mg sublingual Q5M Qty: 30 3RF Rx Instructions: do not exceed 3 doses per episode glimepiride 4 mg tablet 4 mg PO BID 90 Days Qty: 180 3RF levothyroxine 112 mcg tablet 112 mcg PO DAILY Qty: 90 3RF sitagliptin 100 mg tablet 100 mg PO DAILY Qty: 90 3RF cefuroxime axetil 250 mg tablet 250 mg PO BID 7 Days Qty: 14 0RF tamsulosin 0.4 mg capsule 0.4 mg PO QDAY Qty: 30 12RF atorvastatin 20 mg tablet 20 mg PO DAILY 90 Days Qty: 90 3RF clopidogrel 75 mg tablet 75 mg PO DAILY 90 Days Qty: 90 3RF Hold Instructions: Resume on 12/17/21. until blood in urine resolves lisinopril 10 mg Tablet 10 mg PO DAILY 0RF bumetanide 1 mg Tablet 1 mg PO DAILY 30 Days Qty: 30 0RF Magnesium Oxide [Magox] 400 mg PO BID 30 Days Qty: 60 0RF potassium chloride [Klor-Con M20] 20 mEq Tablet,Er Particles/Crystals 40 meq PO BID Qty: 120 0RF carvedilol 6.25 mg Tablet 6.25 mg PO BID 0RF Rx Instructions: must administer with a meal/food Discharge Orders: Discharge ED (Routine); Ordered 12/15/21 Ordered By: Michael Caicedo Referrals: Cynthia Carranza MD [Primary Care Provider] - Discharge Activity: Resume usual activity Patient Instructions: Opioid Safety Activity Restrictions/Additional Instructions: Do not take Bumex today. You may take 1 dose tomorrow. Do not take Bumex on Monday. You should follow-up with your primary care doctor on Monday for a repeat BMP and reevaluation. If you have any further problems return to the emergency room. Coding Level of Care Code ED Senior Cytotechnologist for Killian Fwpatrick Exam Detailed
--- NOTE | 2021-12-15 06:04 | ECG_ITS ---
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 Measurements Intervals [place] Rate: 54 P: 83 AK: 205 QRS: -21 QRSD: 126 T: 98 QT: 478 QTc: 453 Interpretive Statements SINUS BRADYCARDIA WITH OCCASIONAL VENTRICULAR PREMATURE COMPLEXES POSSIBLE ANTERIOR MYOCARDIAL INFARCTION , PROBABLY OLD [30 ms Q WAVE IN V3/V4, OR R < 0.2 mV IN V4] Compared to ECG 12/04/2021 18:07:11 Ventricular premature complex(es) now present Sinus rhythm no longer present Myocardial infarct finding still present Electronically Signed On 12-15-2021 19:26:54 SHIPPING WEIGHER by Cherry Toscano M.D. [email or web address]
[2021-12-15 06:22] LABS: Basophils % 0.3 %; Eosinophils # 0.1 10^3/uL (0.0-0.8); Eosinophils % 0.7 %; Hematocrit 34.3 % (42.0-52.0); Lymphocytes % 13.6 %; Mean Corpuscular HGB Conc 32.1 g/dL (30.0-36.0); Mean Corpuscular Hemoglobin 27.6 pg (28.0-34.0); Mean Platelet Volume 12.4 fL (7.4-10.4); Monocytes # 0.8 10^3/uL (0.2-0.9); Monocytes % 10.6 %; Neutrophils # 5.28 10^3/uL (1.8-7.7); Neutrophils % 73.4 %; Nucleated Red Blood Cells % 0 %; Platelet Count 175 10^3/cmm (130-400); Red Blood Count 3.99 10^6/uL (4.1-5.3); Red Cell Distribution Width 13.9 % (12.1-15.1); White Blood Count 7.2 10^3/uL (4.0-10.0)
[2021-12-15 06:36] LABS: Alanine Aminotransferase 31 U/L (0-41); Albumin Level 3.7 g/dL (3.5-5.2); Alkaline Phosphatase 117 IU/L (40-130); Anion Gap 22.9 (5-19); Aspartate Amino Transferase 25 U/L (0-40); Blood Urea Nitrogen 69 mg/dL (8-23); Carbon Dioxide 22 mmol/L (22-29); Chloride 82 mmol/L (98-107); Creatine Phosphokinase 54 U/L (39-308); Globulin 2.7 g/dL (1.3-4.6); Glucose 282 mg/dL (65-115); Osmolality Calculated 286 mOsm/kg (285-295); Potassium 3.9 mmol/L (3.5-5.1); Sodium 123 mmol/L (136-145); Total Bilirubin 0.7 mg/dL (0.15-1.2); Total Protein 6.4 g/dL (6.6-8.7)
[2021-12-15] MEDS: sodium chloride 0.9% 250 ML IV (08:03)
[2021-12-15 09:31] LABS: Glucose Urine UA Norm (Normal); Protein Urine 1+ (Negative); Urine Appearance Clear (CLEAR); Urine Color Yellow (Yellow); pH Urine 5 (5-7)
[2021-12-15 09:32] LABS: Add Urine Microscopic? YES; Bilirubin Urine Neg (Negative); Blood Urine 3+ (Negative); Ketones Urine Negative (Negative); Leukocyte Esterase Urine Negative (Negative); Nitrate Urine Negative (Negative); Urobilinogen Urine Norm (Negative)
[2021-12-15 09:44] LABS: Bacteria Urine 1+ /hpf; Squamous Epithelial Cell Urine 0-4 /hpf (0-5); Transitional Epi Cells Urine 0-4 /hpf
[2021-12-15 09:45] LABS: Add Urine Culture? Yes; Coarse Granular Casts Urine RARE /lpf; Hyaline Casts Urine 40-55 /lpf; Mucus Urine TRACE /hpf; RBC Urine 25-40 /hpf (0-2)
[2021-12-15 11:40] VITALS: BP 101/56; PULSE 54; RESP 18; TEMP 36.8; O2SAT 97
[2021-12-15 12:04] VITALS: BP 101/56; PULSE 55; RESP 18; O2SAT 98
--- NOTE | 2021-12-16 14:12 | DCPLANNER ---
Addendum entered by Chetna Carmichael 12/31/21 09:23: Patient had a follow up appointment scheduled with Dr. Carranza - patient did attend appointment. Original Note: optical manager had message to schedule a follow up appointment for patient with primary care physician, Dr. Carranza. optical manager called [facility], the office of Dr. Carranza. optical manager spoke with [facility], gave clinic patients information. A follow up appointment was scheduled for Monday, December 20, 2021 at 10:[address] Carranza, patient is aware of appointment.
== END 2021-12-15 12:06 | disposition home or self-care (01) ==
PROVIDERS: Emergency Provider Family Medicine; PCP Family Medicine
DX: I13.0 Hypertensive heart and chronic kidney disease with heart failure and stage 1 through stage 4 chronic kidney disease, or unspecified chronic kidney disease (principal); E11.22 Type 2 diabetes mellitus with diabetic chronic kidney disease; N18.9 Chronic kidney disease, unspecified; I50.9 Heart failure, unspecified; E87.1 Hypo-osmolality and hyponatremia; Z79.82 Long term (current) use of aspirin; Z79.84 Long term (current) use of oral hypoglycemic drugs; Z79.02 Long term (current) use of antithrombotics/antiplatelets; Z98.61 Coronary angioplasty status
CPT/HCPCS: 71045; 80053; 81001; 82550; 85025; 87086; 93005; 96360; 99284; J7050

== ENCOUNTER 2021-12-17 13:03 | Outpatient (CLI) | payer MEDICARE, BC, SELFPAY ==
[2021-12-17 13:31] LABS: Basophils % 0.4 %; Eosinophils # 0.1 10^3/uL (0.0-0.8); Eosinophils % 0.9 %; Hematocrit 35.5 % (42.0-52.0); Hemoglobin 11.1 g/dL (11.7-16.6); Lymphocytes # 0.6 10^3/uL (0.8-4.8); Lymphocytes % 6.8 %; Mean Corpuscular HGB Conc 31.3 g/dL (30.0-36.0); Mean Corpuscular Hemoglobin 27.4 pg (28.0-34.0); Mean Corpuscular Volume 87.7 fl (80-94); Mean Platelet Volume 12.2 fL (7.4-10.4); Monocytes # 0.8 10^3/uL (0.2-0.9); Monocytes % 8.5 %; Neutrophils # 7.44 10^3/uL (1.8-7.7); Nucleated Red Blood Cells % 0 %; Platelet Count 166 10^3/cmm (130-400); Red Blood Count 4.05 10^6/uL (4.1-5.3); Red Cell Distribution Width 14.1 % (12.1-15.1); White Blood Count 9.1 10^3/uL (4.0-10.0)
[2021-12-17 14:08] LABS: Blood Urea Nitrogen 43 mg/dL (8-23); Calcium 8.8 mg/dL (8.5-10.5); Carbon Dioxide 22 mmol/L (22-29); Chloride 90 mmol/L (98-107); Glucose 41 mg/dL (65-115); Osmolality Calculated 272 mOsm/kg (285-295); Sodium 127 mmol/L (136-145)
== END 2021-12-17 13:04 | disposition home or self-care (01) ==
LOC: LAB 13:11
PROVIDERS: Internal Medicine; Internal Medicine Cardiovascular Disease; PCP Family Medicine; Visit Provider Family Medicine
DX: E87.6 Hypokalemia (principal); I50.9 Heart failure, unspecified
CPT/HCPCS: 36415; 80048; 85025

== ENCOUNTER 2021-12-18 05:25 | Inpatient (IN) | payer MEDICARE, BC, SELFPAY ==
[2021-12-18] VITALS (21 sets, daily range): BP systolic 86–121; BP diastolic 38–68; PULSE 57–80; RESP 13–24; TEMP 36.6; O2SAT 92–100; BMI 28.0
--- NOTE | 2021-12-18 05:33 | XRR_ITS ---
PROCEDURE INFORMATION: Exam: XR Chest Exam date and time: 12/18/2021 5:33 AM Age: 76 years old Clinical indication: Prior surgery; Surgery type: Coronary stents x 3; Patient HX: General weakness and hypoglycemic. Patient did not want life vest removed. ; Additional info: AMS TECHNIQUE: Imaging protocol: XR of the chest. Views: 1 view. COMPARISON: CR XR chest 1V portable [id number] 12/15/2021 6:10 AM FINDINGS: Tubes, catheters and devices: External pacemaker device (LifeVest). Lungs: Unremarkable. No consolidation. Pleural spaces: Unremarkable. No pleural effusion. No pneumothorax. Heart/Mediastinum: Unremarkable. No cardiomegaly. Bones/joints: Unremarkable. XR/XR chest 1V portable [id number] IMPRESSION: No acute findings.
[2021-12-18 05:48] LABS: Basophils % 0.2 %; Eosinophils % 0.5 %; Lymphocytes # 0.5 10^3/uL (0.8-4.8); Mean Corpuscular HGB Conc 32.3 g/dL (30.0-36.0); Mean Corpuscular Volume 83.6 fl (80-94); Mean Platelet Volume 12.2 fL (7.4-10.4); Monocytes # 0.7 10^3/uL (0.2-0.9); Monocytes % 8.2 %; Neutrophils # 6.88 10^3/uL (1.8-7.7); Neutrophils % 82.9 %; Nucleated Red Blood Cells % 0 %; Platelet Count 136 10^3/cmm (130-400); Red Blood Count 3.71 10^6/uL (4.1-5.3); White Blood Count 8.3 10^3/uL (4.0-10.0)
[2021-12-18 06:12] LABS: Lactate (Lactic Acid level) 1.3 mmol/L (0.5-2.2)
[2021-12-18 06:22] LABS: Alanine Aminotransferase 24 U/L (0-41); Albumin Level 3.1 g/dL (3.5-5.2); Alkaline Phosphatase 96 IU/L (40-130); Anion Gap 16.8 (5-19); Aspartate Amino Transferase 34 U/L (0-40); Blood Urea Nitrogen 39 mg/dL (8-23); C Reactive Protein 59.3 mg/L (0.0-4.9); Calcium 7.2 mg/dL (8.5-10.5); Carbon Dioxide 23 mmol/L (22-29); Chloride 91 mmol/L (98-107); Globulin 3.1 g/dL (1.3-4.6); Glucose 129 mg/dL (65-115); Magnesium 1.8 mg/dL (1.7-2.3); NT Pro B Type Natriuretic Pept 3551 pg/mL (0-125); Osmolality Calculated 275 mOsm/kg (285-295); Potassium 3.8 mmol/L (3.5-5.1); Sodium 127 mmol/L (136-145); Total Bilirubin 0.9 mg/dL (0.15-1.2); Total Protein 6.2 g/dL (6.6-8.7)
--- NOTE | 2021-12-18 06:24 | ED_ITS ---
HPI - General Adult General: Chief complaint: ER Hold Stated complaint: diabetes Time Seen by Provider: 12/18/21 05:33 History of Present Illness: Patient is a 76-year-old male with history of diabetes, THAI, CAD, HTN, HLD, diastolic CHF on LifeVest presenting to the emergency room for concerns of acute hypoglycemia and altered mental status. Patient was found unresponsive on the couch. Patient son noticed that patient had a glucose of 50 and called EMS. By the time EMS arrived, patient returned to her 50 cc of D10. Patient's glucose improved to the 90s. Patient denies any fever or chills, cough, runny nose, sore throat, nausea/vomiting, diarrhea, melena or hematochezia. Complains of chest pain, shortness breath or palpitation. Onset: unknown Duration: once Location:home Severity:moderate Associated symptoms: Deny chest pain, dyspnea, nausea, rash, palpitations or vomiting Review of Systems Const: Denies: fever(s) or chills Eyes: Denies: change in vision ENMT: Denies: mouth pain Card: Denies: chest pain or palpitations Resp: Denies: dyspnea or non-productive cough GI: Denies: abdominal pain, nausea, vomiting or diarrhea : Denies: dysuria Musc: Denies: extremity pain Skin/Breast: Denies: rash or new lesions Neuro: Reports: other (+transient altered mental status); Denies: weakness in extremities Psych: Reports: other (Normal mood) See/Lymph: Denies: easy bruising PFS ED PFSH: Medical History Acquired hypothyroidism Acute renal failure Atrial fibrillation Atrial fibrillation, new onset Cardiomyopathy CHF (congestive heart failure) Diabetes Hematuria Hypercholesteremia Hypertension Hypothalamic hypothyroidism Shortness of breath Surgical History History of coronary angioplasty History of hand surgery Family History Father , AT AGE 83 Heart disease Mother , AT AGE 80 Heart disease Social History Smoking and tobacco status: never smoked Alcohol intake: never Marital status: Current occupational status: retired History of recent travel: No Physical Exam Const: COMMON NORMALS: alert HENMT: COMMON NORMALS: atraumatic HEAD & SCALP: atraumatic MOUTH: moist mucous membranes not abnormal Eye: COMMON NORMALS: EOMs intact bilaterally and conjunctivae normal CONJUNCTIVA: Yes conjunctivae normal Neck/C-Spine: COMMON NORMALS: full ROM and supple Resp: COMMON NORMALS: normal respiratory effort and clear to auscultation bilaterally AUSCULTATION: clear to auscultation bilaterally Cardio: RATE: Other (irregular irregular rhythm) GI: COMMON NORMALS: Soft to palpation and non-tender PALPATION: Yes Soft to palpation Extremity: COMMON NORMALS: full ROM OTHER: 1+ lower extremity edema Neuro: SENSORIUM/ORIENTATION: Yes alert MOTOR EXAM: No Abnormal motor st rength present and Other motor observations present (no focal motor deficits) Psych: COMMON NORMALS: speech normal SPEECH: Yes normal speech MOOD & AFFECT: Yes euthymic mood Course Vital Signs: Vital signs: Vital Signs Temperature 97.6 F 12/20/21 04:00 Pulse Rate 68 12/20/21 20:09 Respiratory Rate 16 12/20/21 20:09 Blood Pressure 96/51 12/20/21 18:00 Pulse Oximetry 98 12/20/21 20:09 [facility] - General Adult Medical Decision Making Patient is a 76-year-old male with a history of CHF on LifeVest, hypertension, CKD diabetes who presents emergency room for concerns of hypoglycemia at home and altered mental status. Arrival, patient is AAO x3, answering question, n euro exam is intact. Patient initially on arrival was noted to have low blood pressure of 80/30 and 90/50. Patient had a rectal temp within normal limit. She received 100 mcg of phenylephrine in the emergency room improved with symptom. Given history of hypoglycemia and glimerpide, he received 50 mcg of octreotide. Repeat blood pressure appears to be improved after the phenylephrine and obser vation. Patient continues to have persistent glucose level greater than 100 will observe the emergency for treatment for 2 hours. EKG showing afib at HT of 67. Normal axis. Depression noticed in 2/3 aVF/V4-V6 with mild ST elevation in aVL similar to prior EKG on 12/15/2020. Given concern for dehydration, altered mental status, and hypoglycemia, I have performed a shared decision making with family who prefers the patient stays in the hospital for serial observation for 1 night. Disposition: admission Lab Data : 12/20/21 02:29 12/20/21 02:29 Radiology Impressions Chest X-Ray 12/18/21 05:33 IMPRESSION: No acute findings. Head CT 12/18/21 06:29 IMPRESSION: No acute intracranial abnormality. Laboratory Results WBC 8.3 10^3/uL (4.0-10.0) 12/18/21 05:38 RBC 3.71 10^6/uL (4.1-5.3) L 12/18/21 05:38 Hgb 10.0 g/dL (11.7-16.6) L 12/18/21 05:38 Hct 31.0 % (42.0-52.0) L 12/18/21 05:38 MCV 83.6 fl (80-94) 12/18/21 05:38 MCH 27.0 pg (28.0-34.0) L 12/18/21 05:38 MCHC 32.3 g/dL (30.0-36.0) 12/18/21 05:38 RDW 14.0 % (12.1-15.1) 12/18/21 05:38 Plt Count 136 10^3/cmm (130-400) 12/18/21 05:38 MPV 12.2 fL (7.4-10.4) H 12/18/21 05:38 Neut % (Auto) 82.9 % 12/18/21 05:38 Lymph % (Auto) 6.0 % 12/18/21 05:38 [place] % (Auto) 8.2 % 12/18/21 05:38 Eos % (Auto) 0.5 % 12/18/21 05:38 Baso % (Auto) 0.2 % 12/18/21 05:38 Neut # (Auto) 6.88 10^3/uL (1.8-7.7) 12/18/21 05:38 Lymph # (Auto) 0.5 10^3/uL (0.8-4.8) L 12/18/21 05:38 Mill[place] # (Auto) 0.7 10^3/uL (0.2-0.9) 12/18/21 05:38 Eos # (Auto) 0.0 10^3/uL (0.0-0.8) 12/18/21 05:38 Baso # (Auto) 0.0 10^3/uL (0.0-0.1) 12/18/21 05:38 Nucleated RBC % (auto) 0 % 12/18/21 05:38 Nucleated RBCs # 0.0 /100WBC 12/18/21 05:38 Sodium 127 mmol/L (136-145) L 12/18/21 05:38 Potassium 3.8 mmol/L (3.5-5.1) 12/18/21 05:38 Chloride 91 mmol/L (98-107) L 12/18/21 05:38 Carbon Dioxide 23 mmol/L (22-29) 12/18/21 05:38 Anion Gap 16.8 (5-19) 12/18/21 05:38 BUN 39 mg/dL (8-23) H 12/18/21 05:38 Creatinine 1.6 mg/dL (0.7-1.2) H 12/18/21 05:38 GFR Calculation Not Reportable 12/18/21 05:38 Glucose 110 mg/dL (65-115) 12/18/21 08:21 POC Glucose 124 mg/dL (70-110) H 12/18/21 08:31 Estimat Average Glucose 206 12/18/21 05:38 Hemoglobin A1c 8.8 % (4.0-6.0) H 12/18/21 05:38 Calculated Osmolality 275 mOsm/kg (285-295) L 12/18/21 05:38 Lactate 1.3 mmol/L (0.5-2.2) 12/18/21 05:38 Calcium 7.2 mg/dL (8.5-10.5) L 12/18/21 05:38 Magnesium 1.8 mg/dL (1.7-2.3) 12/18/21 05:38 Total Bilirubin 0.9 mg/dL (0.15-1.2) 12/18/21 05:38 AST 34 U/L (0-40) 12/18/21 05:38 ALT 24 U/L (0-41) 12/18/21 05:38 Alkaline Phosphatase 96 IU/L (40-130) 12/18/21 05:38 Troponin T Baseline 122 ng/L (0-15) H* 12/18/21 05:38 Troponin T 120 Minute 125.9 ng/L (0-15) H 12/18/21 08:21 Delta Troponin T 3.9 ABS# (0-10) 12/18/21 08:21 C-Reactive Protein 59.3 mg/L (0.0-4.9) H 12/18/21 05:38 NT-Pro-B Natriuret Pep 3551 pg/mL (0-125) H 12/18/21 05:38 Total Protein 6.2 g/dL (6.6-8.7) L 12/18/21 05:38 Albumin 3.1 g/dL (3.5-5.2) L 12/18/21 05:38 Globulin 3.1 g/dL (1.3-4.6) 12/18/21 05:38 Procalcitonin 0.12 ng/mL (0-0.5) 12/18/21 05:38 Random Cortisol 55.99 ug/dL (2.47-19.5) H 12/18/21 05:38 Urine Color Yellow (Yellow) 12/18/21 08:28 Urine Appearance Clear (CLEAR) 12/18/21 08:28 Urine pH 5 (5-7) 12/18/21 08:28 Ur Specific [place] 1.010 (1.005-1.030) 12/18/21 08:28 Urine Protein Neg (Negative) 12/18/21 08:28 Urine Glucose (UA) Norm (Normal) 12/18/21 08:28 Urine Ketones Negative (Negative) 12/18/21 08:28 Urine Blood Neg (Negative) 12/18/21 08:28 Urine Nitrate Negative (Negative) 12/18/21 08:28 Urine Bilirubin Neg (Negative) 12/18/21 08:28 Urine Urobilinogen Norm mg/dL (Negative) 12/18/21 08:28 Ur Leukocyte Esterase Negative (Negative) 12/18/21 08:28 Discharge Plan Discharge Patient Disposition: Home Clinical Impression: Hypoglycemia, Altered mental status Condition: Stable Coding Level of Care Code ED Director Mission for Chg Fwd Exam Comprehensive
--- NOTE | 2021-12-18 06:27 | ECG_ITS ---
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 Measurements Intervals [place] Rate: 67 P: NM: QRS: 23 QRSD: 126 T: 154 QT: 385 QTc: 408 Interpretive Statements ATRIAL FIBRILLATION SEPTAL MYOCARDIAL INFARCTION , PROBABLY OLD [40+ ms Q WAVE IN V1/V2] INTERPRETATION BASED ON A DEFAULT AGE OF 40 YEARS Compared to ECG 12/15/2021 05:47:29 Sinus bradycardia no longer present Ventricular premature complex(es) no longer present Myocardial infarct finding still present Electronically Signed On 12-20-2021 8:54:27 ASPHALT ROLLER OPERATOR by Vamshi Gunter M.D. [id number]
--- NOTE | 2021-12-18 06:29 | CTR_ITS ---
PROCEDURE INFORMATION: Exam: CT Head Without Contrast Exam date and time: 12/18/2021 6:29 AM Age: 76 years old Clinical indication: Other: Syncope; Additional info: AMS TECHNIQUE: Imaging protocol: Computed tomography of the head without contrast. Radiation optimization: All CT scans at this facility use at least one of these dose optimization techniques: automated exposure control; mA and/or kV adjustment per patient size (includes targeted exams where dose is matched to clinical indication); or iterative reconstruction. COMPARISON: No relevant prior studies available. RADIATION DOSE METRICS: Total DLP (mGy-cm): 1672.2 FINDINGS: Brain: There is cortical atrophy. Chronic appearing left basal ganglia lacunar infarct. Periventricular and deep white matter hypodensities compatible with chronic microvascular ischemic changes. No hemorrhage. No edema, mass effect or midline shift. Cerebral ventricles: No ventriculomegaly. Paranasal sinuses: Visualized sinuses are unremarkable. No fluid levels. Mastoid air cells: No mastoid effusion. Bones/joints: No acute fracture. Soft tissues: Unremarkable. CT/CT head wo con* [id number] IMPRESSION: No acute intracranial abnormality.
--- NOTE | 2021-12-18 06:50 | PC.NURSE ---
report given to Syeda CORNEJO
[2021-12-18] MEDS: octreotide 100 mcg/mL SDV 50 MCG IVP (07:03)
[2021-12-18 07:22] LABS: Glucose Point of Care 110 mg/dL (70-110)
[2021-12-18 07:25] LABS: Troponin(5th) Baseline 122 ng/L (0-15)
[2021-12-18 08:34] LABS: Glucose Point of Care 124 mg/dL (70-110)
[2021-12-18 08:42] LABS: Add Urine Microscopic? NO; Charge for UA Resulting for Rev
[2021-12-18 08:53] LABS: Bilirubin Urine Neg (Negative); Blood Urine Neg (Negative); Glucose Urine UA Norm (Normal); Ketones Urine Negative (Negative); Leukocyte Esterase Urine Negative (Negative); Nitrate Urine Negative (Negative); Protein Urine Neg (Negative); Urine Appearance Clear (CLEAR); Urine Color Yellow (Yellow); Urobilinogen Urine Norm (Negative); pH Urine 5 (5-7)
[2021-12-18 08:55] LABS: Glucose 110 mg/dL (65-115)
[2021-12-18 09:24] LABS: Troponin 5 2HR Delta 3.9 ABS# (0-10)
[2021-12-18 09:26] LABS: Troponin 5 2HR 125.9 ng/L (0-15)
--- NOTE | 2021-12-18 09:34 | PC.NURSE ---
PATIENT HAD BM. PATIENT LINENS AND CHUCKS CHANGED. TRASH REMOVED. PATIENT MADE COMFORTABLE.
[2021-12-18] MEDS: lactated ringers 1,000 ML 100 ML IV (10:46)
[2021-12-18 12:51] LABS: Adenovirus Not Detected (NOT DETECT); Chlamydia Pneumoniae Not Detected (NOT DETECT); Coronavirus 229E,HKU1,NL63,OC4 Not Detected (NOT DETECT); Human Metapneumovirus Not Detected (NOT DETECT); Human Rhinovirus/Enterovirus Not Detected (NOT DETECT); Influenza A Not Detected (NOT DETECT); Influenza A H1 Not Detected (NOT DETECT); Influenza A H1-2009 Not Detected (NOT DETECT); Influenza A H3 Not Detected (NOT DETECT); Influenza B Not Detected (NOT DETECT); Mycoplasma Pneumoniae Not Detected (NOT DETECT); Parainfluenza Virus Type 1 Not Detected (NOT DETECT); Parainfluenza Virus Type 2 Not Detected (NOT DETECT); Parainfluenza Virus Type 3 Not Detected (NOT DETECT); Parainfluenza Virus Type 4 Not Detected (NOT DETECT); Respiratory Syncytial Virus A Not Detected (NOT DETECT); Respiratory Syncytial Virus B Not Detected (NOT DETECT); SARS-COV-2 Detected (NOT DETECT)
--- NOTE | 2021-12-18 14:03 | P.HP_ITS ---
Providers/Chief Complaint Admitting Physician: Renetta Koo MD Primary Care Provider: Cynthia Carranza MD Chief Complaint: diabetes History of Present Illness Gordy Fiore is a 76 year old male who presented to hospital for worsening of confusion. Patient is stating that for last couple of days has been feeling fatigued, lethargic, he experienced 4-5 episode of loose stools yesterday, no fever noticed at home. He used to walk with the help of walker however not able to do so because of worsening of fatigue and generalized weakness. His brought him to the hospital when he was found obtunded at home last night he had obtunded state when EMS was called. He was diagnosed with hypoglycemia. After treatment his blood sugar remained stable, on arrival in the ER his blood pressure was soft which required IV fluid hydration, at home he does take sulfonylurea. Diagnostics in the ER revealed COVID-19 PCR positive, for his diarrhea C. difficile was ruled out, I gave him a capsule of Imodium, he had 4 loose stools in less than 2 hours which was irritating his buttock skin. He was not requiring oxygen saturating well on room air. He was given octreotide, IV fluids, Decadron 10 mg IV push. Patient was recently admitted for management of S- CHF exacerbation, he has poor ejection fraction 20-25%, LifeVest was arranged by rock crusher operator, there was plan to do coronary angiogram however it was delayed secondary to worsening creatinine, he was aggressively diuresed with negative fluid balance of 20,000ml, he developed hematuria with traumatic Casanova catheter placement was recommended Flomax at the time of discharge Review of Systems Const: Reports: chills and body aches Eyes: Denies: change in vision ENMT: Denies: throat pain Card: Reports: dyspnea on exertion and orthopnea; Denies: chest pain Resp: Reports: dyspnea GI: Denies: abdominal pain : Denies: flank pain Musc: Denies: neck pain Skin/Breast: Denies: rash Neuro: Denies: headache(s) Psych: Denies: anxiety Endo: Denies: polyuria See/Lymph: Denies: easy bruising All/Imm: Denies: urticaria Medications/Allergies Home Medications Medication Instructions Recorded Confirmed Last Taken Type aspirin 81 mg tablet,delayed 81 mg PO DAILY 12/26/19 12/18/21 12/04/21 History release (Adult Aspirin Regimen) atorvastatin 20 mg tablet 20 mg PO DAILY 90 Days #90 tab 01/11/21 12/18/21 12/04/21 Rx clopidogrel 75 mg tablet 75 mg PO DAILY 90 Days #90 tab 02/11/21 12/18/21 12/04/21 Rx glimepiride 4 mg tablet 4 mg PO BID 90 Days #180 tab 08/10/21 12/18/21 12/04/21 Rx levothyroxine 112 mcg tablet 112 mcg PO DAILY #90 tab 08/10/21 12/18/21 12/04/21 Rx sitagliptin 100 mg tablet 100 mg PO DAILY #90 tab 08/10/21 12/18/21 12/04/21 Rx metformin 1,000 mg tablet 500 mg PO BID tab 11/22/21 12/18/21 12/04/21 History potassium chloride 20 mEq 20 meq PO DAILY #90 tab 11/22/21 12/18/21 12/04/21 Rx tablet,extended release nitroglycerin 0.4 mg sublingual 0.4 mg SUBLINGUAL Q5M #30 tab 12/02/21 12/18/21 Unknown Rx tablet lisinopril 10 mg tablet 10 mg PO DAILY 12/05/21 12/18/21 12/04/21 History bumetanide 1 mg tablet 1 mg PO DAILY 30 Days #30 tab 12/13/21 12/18/21 Unknown Rx magnesium oxide [Magox] 400 mg PO BID 30 Days #60 cap 12/13/21 12/18/21 Unknown Rx potassium chloride 20 mEq 40 meq PO BID #120 tab 12/13/21 12/18/21 Unknown Rx tablet,extended release(part/cryst) (Klor-Con M) cefuroxime axetil 250 mg tablet 250 mg PO BID 7 Days #14 tab 12/14/21 12/18/21 Unknown Rx tamsulosin 0.4 mg capsule 0.4 mg PO QDAY #30 cap 12/14/21 12/18/21 Unknown Rx carvedilol 6.25 mg tablet 6.25 mg PO BID 12/18/21 12/18/21 Unknown History Allergies Allergy/AdvReac Type Severity Reaction Status Date / Time No Known Allergies Allergy Verified 12/18/21 05:35 PFSH Acute PFSH: Medical History Acquired hypothyroidism Acute renal failure Atrial fibrillation Atrial fibrillation, new onset Cardiomyopathy CHF (congestive heart failure) Diabetes Hematuria Hypercholesteremia Hypertension Hypothalamic hypothyroidism Shortness of breath Surgical History History of coronary angioplasty History of hand surgery Family History Father , AT AGE 83 Heart disease Mother , AT AGE 80 Heart disease Social History Smoking and tobacco status: never smoked Alcohol intake: never Marital status: Current occupational status: retired History of recent travel: No Vitals/I&O/Wt Last Vital Signs Temp 98 F 12/18/21 11:08 Pulse 80 12/18/21 13:27 Resp 24 H 12/18/21 13:27 BP 92/45 12/18/21 13:27 Pulse Ox 99 12/18/21 13:27 Weight last 48 hrs Weight 86.183 kg Physical Exam Narrative: Patient elderly male Fatigue lethargic Currently on room air Does not look fluid overloaded Having diarrhea No audible stridor or wheezing No active shortness of breath or use of respiratory accessory muscles S1, S2 Blood pressure improved with IV fluid hydration Nonfocal neuro exam Able to answer all my question EOMI, PERRANTHONY Data : 12/18/21 05:38 12/18/21 08:21 Micro: Microbiology 12/18/21 10:59 Stool Lactoferrin - Final Stool C.difficile Toxin B Gene (PCR) - Final Occult Blood (FIT) - Final A&P Assessment and plan (1) Hyponatremia: Status: Acute (2) Hypoglycemia: Status: Acute (3) Altered mental status: Status: Acute (4) Cardiomyopathy: Status: Acute (5) COVID-19 determined by clinical diagnostic criteria: Status: Acute Plan COVID-19 related encephalopathy Patient looks tired and fatigued however no active focal exam COVID-19 related fatigue I would add Decadron, weight and remdesivir, he is now requiring oxygen Hypoglycemia secondary to poor p.o. intake, diarrhea and use of antihypoglycemic agents We will keep him on sliding scale Diarrhea related to COVID-19: We will give 1 dose of Imodium right now, C. difficile has been ruled out Remove rectal tube Systolic congestive heart failure without acute exacerbation EF 20 to 25% LifeVest was arranged by rock crusher operator on recent admission There was plan for coronary angiogram which was delayed secondary to worsening creatinine Currently seems compensated I would not continue fluids Chronic kidney disease creatinine seems to run baseline Considering poor EF, advanced age and COVID-19 he needs closer monitoring, he is at risk of rapid decline Admit to [facility] Inpatient criteria DVT prophylaxis: Heparin on previous admission he had traumatic Casanova catheter placement, hemoglobin stable Attestations Medical Necessity Statement*: More than 2 midnights anticipated Time Spent in Patient Care: 35mins Coding Level of Care Code Acute Photoengraving Machine Operator/Tender for [facility] Fwd Diagnoses Hyponatremia E87.1 Hypoglycemia E16.2 Altered mental status R41.82 Cardiomyopathy I42.9 COVID-19 determined by clinical diagnostic criteria U07.1
--- NOTE | 2021-12-18 14:10 | PC.NURSE ---
PATIENT DEFECATED 4 TIMES OVER 3 HOURS. SKIN IRRITATION AND BREAKDOWN NOTICED ON BOTTOM. STOOLS BECOME MORE WATERY. PROVIDER NOTIFIED AND RECTAL TUBE ORDER GIVEN. PATIENT TOLERATED PROCEDURE WELL.
[2021-12-18] MEDS: loperamide 2 mg Capsule 4 MG PO (14:48)
[2021-12-18] MEDS: dexamethasone 10 mg/mL INJ IVP (14:48)
--- NOTE | 2021-12-18 15:32 | PC.NURSE ---
CALL ERIC LILLY @ [phone].
[2021-12-18 17:06] LABS: Procalcitonin 0.12 ng/mL (0-0.5)
[2021-12-18 17:27] LABS: Glucose Point of Care 310 mg/dL (70-110)
[2021-12-18 17:27] LABS: Cortisol Random 55.99 ug/dL (2.47-19.5)
[2021-12-18 17:30] LABS: Estmated Average Glucose 206; Hemoglobin A1C 8.8 % (4.0-6.0)
[2021-12-18] MEDS: magnesium oxide 400 mg tablet PO (17:33)
[2021-12-18] MEDS: carvedilol 6.25 mg Tablet PO (17:33)
[2021-12-18] MEDS: tamsulosin 0.4 mg Capsule PO (17:33)
[2021-12-18] MEDS: heparin 5,000 unit/mL INJ 1 mL 5000 UNIT SUBCUT (17:34)
[2021-12-18] MEDS: insulin lispro 100 unit/1 mL SUBCUT (17:34)
[2021-12-19] VITALS (24 sets, daily range): BP systolic 88–124; BP diastolic 51–77; PULSE 56–82; RESP 7–21; TEMP 36.5–37.4; O2SAT 89–99
[2021-12-19 00:40] LABS: Glucose Point of Care 211 mg/dL (70-110)
[2021-12-19] MEDS: heparin 5,000 unit/mL INJ 1 mL 5000 UNIT SUBCUT ×2 (02:36→07:43)
[2021-12-19 04:45] LABS: Basophils % 0.3 %; Hemoglobin 10.8 g/dL (11.7-16.6); Lymphocytes # 0.7 10^3/uL (0.8-4.8); Lymphocytes % 12.7 %; Mean Corpuscular HGB Conc 31.8 g/dL (30.0-36.0); Mean Corpuscular Hemoglobin 27.5 pg (28.0-34.0); Mean Corpuscular Volume 86.5 fl (80-94); Mean Platelet Volume 12.7 fL (7.4-10.4); Monocytes # 0.6 10^3/uL (0.2-0.9); Monocytes % 10.8 %; Neutrophils # 4.23 10^3/uL (1.8-7.7); Neutrophils % 73.6 %; Nucleated Red Blood Cells % 0 %; Platelet Count 150 10^3/cmm (130-400); Red Blood Count 3.93 10^6/uL (4.1-5.3); Red Cell Distribution Width 14.1 % (12.1-15.1); White Blood Count 5.8 10^3/uL (4.0-10.0)
[2021-12-19 05:00] LABS: Alanine Aminotransferase 21 U/L (0-41); Albumin Level 3.1 g/dL (3.5-5.2); Alkaline Phosphatase 90 IU/L (40-130); Aspartate Amino Transferase 26 U/L (0-40); Blood Urea Nitrogen 39 mg/dL (8-23); Calcium 8.2 mg/dL (8.5-10.5); Carbon Dioxide 23 mmol/L (22-29); Chloride 89 mmol/L (98-107); Globulin 3.4 g/dL (1.3-4.6); Glucose 252 mg/dL (65-115); Osmolality Calculated 278 mOsm/kg (285-295); Sodium 125 mmol/L (136-145); Total Bilirubin 0.8 mg/dL (0.15-1.2); Total Protein 6.5 g/dL (6.6-8.7)
[2021-12-19 05:04] LABS: Anion Gap 17.6 (5-19); Potassium 4.6 mmol/L (3.5-5.1)
[2021-12-19 05:06] LABS: C Reactive Protein 37.4 mg/L (0.0-4.9)
[2021-12-19 07:29] LABS: Glucose Point of Care 314 mg/dL (70-110)
[2021-12-19] MEDS: insulin lispro 100 unit/1 mL SUBCUT ×3 (07:44→17:48)
[2021-12-19] MEDS: aspirin 81 mg EC Tablet PO (07:44)
[2021-12-19] MEDS: clopidogrel 75 mg Tablet PO (07:44)
[2021-12-19] MEDS: carvedilol 6.25 mg Tablet PO (07:45)
[2021-12-19] MEDS: atorvastatin 40 mg Tablet 20 MG PO (07:45)
[2021-12-19] MEDS: magnesium oxide 400 mg tablet PO ×2 (07:46→17:48)
[2021-12-19] MEDS: levothyroxine 112 mcg Tablet PO (07:46)
--- NOTE | 2021-12-19 09:40 | ECG_ITS ---
[facility] Test Date: 2021-12-19 Pat Name: Gordy Fiore Department: Room: ICU06 Gender: Male It Sales Executive: : 1945 Requested By: Renetta Koo Order Number: [id number] Antonio MD: Vamshi Gunter M.D. Measurements Intervals [place] Rate: 73 P: 95 RI: 202 QRS: -28 QRSD: 122 T: 102 QT: 387 QTc: 427 Interpretive Statements SINUS RHYTHM BORDERLINE LEFT AXIS DEVIATION [QRS AXIS < -20] POSSIBLE RIGHT VENTRICULAR CONDUCTION DELAY [RSR (QR) IN V1/V2] ST DEPRESSION, CONSIDER SUBENDOCARDIAL INJURY [0.1+ mV ST DEPRESSION] ABNORMAL QRS-T ANGLE [QRS-T AXIS DIFFERENCE > 60] Compared to ECG 12/18/2021 06:34:59 ST (T wave) deviation now present Atrial fibrillation no longer present Myocardial infarct finding no longer present Electronically Signed On 12-20-2021 8:51:50 COUGAR HUNTER by Vamshi Gunter M.D. [id number]
[2021-12-19 10:11] LABS: D Dimer 1.25 ug/mIFEU (0-0.59)
[2021-12-19] MEDS: morphine 4 mg/mL SDV 1 mL 2 MG IVP (10:18)
[2021-12-19 11:15] LABS: Troponin(5th) Baseline 106 ng/L (0-15)
[2021-12-19 11:24] LABS: Glucose Point of Care 305 mg/dL (70-110)
--- NOTE | 2021-12-19 11:58 | P.PN_ITS ---
Subjective Subjective: This morning patient was stating that last night because excessive coughing he started feeling achy sensation left side of his chest which is radiating to his left arm, I requested EKG, serial troponin, start heparin drip as his EF is only 20-25% In terms of COVID-19 he is only on room air High D-dimer noted Not a candidate for CTA chest, will request VQ scan Creatinine improved 1.5 Vitals/I&O/Wt Last Vital Signs Temp 98.9 F 12/19/21 07:30 Pulse 76 12/19/21 10:00 Resp 15 12/19/21 10:18 BP 104/63 12/19/21 10:00 Pulse Ox 96 12/19/21 10:18 12/18/21 12/19/21 12/19/21 22:59 06:59 14:59 Intake Total 200 / 200 120 / 120 Output Total 500 / 500 300 / 300 Balance -300 / -300 -180 / -180 Weight last 48 hrs Weight 86.183 kg Physical Exam 2 Narrative: Patient looks dehydrated Blood pressure is stable Nonfocal neuro exam Nonreproducible left-sided chest discomfort S1, S2 Abdomen soft No audible stridor or wheezing Nonfocal neuro exam Data : 12/19/21 04:27 12/19/21 04:27 Micro: Microbiology 12/18/21 10:59 Stool Lactoferrin - Final Stool Enteric Pathogens (PCR) - Final C.difficile Toxin B Gene (PCR) - Final Occult Blood (FIT) - Final A&P Assessment and plan (1) COVID-19 determined by clinical diagnostic criteria: Status: Acute (2) Hyponatremia: Status: Acute (3) Acute on chronic kidney failure: Status: Acute (4) Hypoglycemia: Status: Acute (5) Altered mental status: Status: Acute (6) Acute urinary retention: Status: Acute (7) Cardiomyopathy: Status: Acute (8) Gross hematuria: Status: Acute (9) Atrial fibrillation: Status: Acute (10) Diabetes: Status: Acute Qualifiers: Diabetes mellitus type: type 2 Diabetes mellitus manager intermediate insulin use: without skilled nursing use Diabetes mellitus complication status: with hyperglycemia Qualified Code(s): E11.65 - Type 2 diabetes mellitus with hyperglycemia Plan Patient will receive discharge after manage of congestive heart failure exacerbation after 20 L aggressive diuresis he was discharged home on aspirin, Plavix was held because of gross hematuria which was secondary to traumatic Casanova catheter placement COVID-19 related encephalopathy Improving Currently on room air Continue Decadron High D-dimer not a candidate of CTA chest Complaining of left-sided chest pain, will request VQ scan, started heparin drip NSTEMI: Currently on heparin drip Start aspirin Plavix, Hemoglobin is stable no active hematuria Continue atorvastatin Serial troponin EKG Creatinine 1.5 We will give low-dose morphine EKG does show T wave inversions in anterolateral leads gRoss hematuria: Resolved A. fib: No recurrence, this was diagnosed on previous admission however it resolved quickly, anticoagulating agent was not recommended because of hematuria EF 20 to 25% patient currently has a LifeVest Full code At risk of rapid deterioration considering low EF, daughter updated Attestations Medical Necessity Statement*: Transfer out of ICU to [facility] Time Spent in Patient Care: 20 minutes Coding Level of Care Code Acute C Java Developer for g Fwd Diagnoses COVID-19 determined by clinical diagnostic criteria U07.1 Hyponatremia E87.1 Acute on chronic kidney failure N17.9; N18.9 Hypoglycemia E16.2 Altered mental status R41.82 Acute urinary retention R33.8 Cardiomyopathy I42.9 Gross hematuria R31.0 Atrial fibrillation I48.91 Diabetes E11.65 Diabetes mellitus type: type 2 Diabetes mellitus skilled nursing insulin use: without skilled nursing use Diabetes mellitus complication status: with hyperglycemia
[2021-12-19] MEDS: heparin 5,000 unit/mL INJ 1 mL IV (12:18)
[2021-12-19] MEDS: heparin drip 25,000 UNIT/500 ML PREMIX 24.13 UNIT IV (12:20)
[2021-12-19] MEDS: dexamethasone 10 mg/mL INJ 6 MG IVP (13:51)
--- NOTE | 2021-12-19 16:07 | PC.NURSE ---
Scheduled heparin held, Dr. Koo approved.
[2021-12-19 17:30] LABS: Glucose Point of Care 314 mg/dL (70-110)
[2021-12-19] MEDS: tamsulosin 0.4 mg Capsule PO (17:48)
[2021-12-19 18:01] LABS: Partial Thromboplastin Time 160.2 SECONDS (23.9-36.7)
--- NOTE | 2021-12-19 19:00 | PC.NURSE ---
Heparin Drip Heparin drip paused before beginning of shift due to high aptt results. MAR displaying drip continuing at 14 kg/hr; MAR updated to show paused. Dr. Neely informed of high aptt/paused drip and contacted for further orders at 1944. Order received to recheck ptt at 2129 and to inform him of results. Orders carried out as indicated.
[2021-12-19] MEDS: insulin glargine 100 units/1 mL 10 UNIT SUBCUT (20:24)
[2021-12-19 20:33] LABS: Glucose Point of Care 372 mg/dL (70-110)
[2021-12-19 22:00] LABS: Partial Thromboplastin Time 53.3 SECONDS (23.9-36.7)
--- NOTE | 2021-12-19 22:42 | PC.NURSE ---
Heparin Drip Dr. Neely called and notified of aptt result of 53.3. Order received to resume Heparin drip at prior rate, give no bolus, and to recheck ptt in 4 hours. Orders carried out as indicated.
[2021-12-20] VITALS (25 sets, daily range): BP systolic 88–122; BP diastolic 50–73; PULSE 56–79; RESP 8–22; TEMP 36.4–36.6; O2SAT 85–99; BMI 31.7
[2021-12-20 02:50] LABS: Basophils % 0.2 %; Hematocrit 31.8 % (42.0-52.0); Hemoglobin 10.4 g/dL (11.7-16.6); Lymphocytes # 0.7 10^3/uL (0.8-4.8); Lymphocytes % 8.4 %; Mean Corpuscular HGB Conc 32.7 g/dL (30.0-36.0); Mean Corpuscular Volume 85.7 fl (80-94); Mean Platelet Volume 12.8 fL (7.4-10.4); Monocytes # 0.8 10^3/uL (0.2-0.9); Monocytes % 8.5 %; Neutrophils # 7.12 10^3/uL (1.8-7.7); Neutrophils % 80.7 %; Nucleated Red Blood Cells % 0 %; Platelet Count 139 10^3/cmm (130-400); Red Blood Count 3.71 10^6/uL (4.1-5.3); Red Cell Distribution Width 13.9 % (12.1-15.1); White Blood Count 8.8 10^3/uL (4.0-10.0)
[2021-12-20 03:10] LABS: Anion Gap 16.7 (5-19); Blood Urea Nitrogen 45 mg/dL (8-23); Calcium 7.4 mg/dL (8.5-10.5); Carbon Dioxide 23 mmol/L (22-29); Chloride 88 mmol/L (98-107); Glucose 281 mg/dL (65-115); Osmolality Calculated 280 mOsm/kg (285-295); Potassium 3.7 mmol/L (3.5-5.1); Sodium 124 mmol/L (136-145)
[2021-12-20 03:12] LABS: Partial Thromboplastin Time 108.7 SECONDS (23.9-36.7)
--- NOTE | 2021-12-20 06:12 | PC.NURSE ---
Sleep apnea Throughout shift while patient resting, patient's oxygen saturation would periodically drop from mid 90s to low 80s then quickly return to mid 90s. Patient asymptomatic and when awake drops did not occur.
--- NOTE | 2021-12-20 07:42 | ECG_ITS ---
[facility] Test Date: 2021-12-20 Pat Name: Gordy Fiore Department: Room: ICU06 Gender: Male Lead Business Analyst: : 1945 Requested By: Renetta Koo Order Number: [id number] Antonio MD: Vamshi Gunter M.D. Measurements Intervals [place] Rate: 62 P: [place]: QRS: -38 QRSD: 121 T: 115 QT: 425 QTc: 432 Interpretive Statements SINUS RHYTHM LEFT AXIS DEVIATION [QRS AXIS < -30] POSSIBLE RIGHT VENTRICULAR CONDUCTION DELAY [RSR (QR) IN V1/V2] POSSIBLE ANTERIOR MYOCARDIAL INFARCTION , PROBABLY OLD [30 ms Q WAVE IN V3/V4, OR R < 0.2 mV IN V4] Compared to ECG 12/19/2021 10:34:32 Myocardial infarct finding now present ST (T wave) deviation no longer present Electronically Signed On 12-20-2021 8:56:19 BASEBALL INSPECTOR AND REPAIRER by Vamshi Gunter M.D. [id number]
[2021-12-20 07:43] LABS: Glucose Point of Care 237 mg/dL (70-110)
[2021-12-20] MEDS: magnesium oxide 400 mg tablet PO ×2 (08:36→17:33)
[2021-12-20] MEDS: atorvastatin 40 mg Tablet 20 MG PO (08:36)
[2021-12-20] MEDS: clopidogrel 75 mg Tablet PO (08:37)
[2021-12-20] MEDS: aspirin 81 mg EC Tablet PO (08:37)
[2021-12-20] MEDS: insulin lispro 100 unit/1 mL SUBCUT ×3 (08:37→17:32)
[2021-12-20] MEDS: levothyroxine 112 mcg Tablet PO (08:37)
--- NOTE | 2021-12-20 09:40 | P.PN_ITS ---
Subjective Subjective: Patient is endorsing feeling better, chest pain resolved after he was on morphine yesterday, VQ scan is pending, heparin drip Covid readjusted according to aptt Vitals/I&O/Wt Last Vital Signs Temp 97.6 F 12/20/21 04:00 Pulse 75 12/20/21 06:00 Resp 9 L 12/20/21 06:00 BP 113/73 12/20/21 06:00 Pulse Ox 97 12/20/21 06:00 12/19/21 12/20/21 12/20/21 22:59 06:59 14:59 Intake Total 640.867 / 760.867 605 / 1365.867 Output Total 850 / 1150 525 / 1675 Balance -209.133 / -389.133 80 / -309.133 Weight last 48 hrs Weight 97.522 kg Physical Exam Narrative: Patient is resting comfortably Doing well on room air Looks slightly dehydrated Abdomen soft No signs of edema Awake and alert Endorsing feeling better No active chest pain Doing well on room air no active conversational dyspnea Abdomen soft no audible stridor or wheezing Data : 12/20/21 02:29 12/20/21 02:29 Micro: Microbiology 12/18/21 10:59 Stool Lactoferrin - Final Stool Enteric Pathogens (PCR) - Final Parasite Antigen Panel - Final C.difficile Toxin B Gene (PCR) - Final Occult Blood (FIT) - Final A&P Assessment and plan (1) COVID-19 determined by clinical diagnostic criteria: Status: Acute (2) Hyponatremia: Status: Acute (3) Acute on chronic kidney failure: Status: Acute (4) Hypoglycemia: Status: Acute (5) Altered mental status: Status: Acute (6) Acute urinary retention: Status: Acute (7) Cardiomyopathy: Status: Acute (8) Atrial fibrillation: Status: Acute (9) CHF (congestive heart failure): Status: Acute (10) Diabetes: Status: Acute Qualifiers: Diabetes mellitus type: type 2 Diabetes mellitus termite helper insulin use: without termite helper use Diabetes mellitus complication status: with hyperglycemia Qualified Code(s): E11.65 - Type 2 diabetes mellitus with hyperglycemia Plan COVID-19: Doing well on room air Continue Decadron Have not initiated remdesivir Sinus bradycardia: Improved, held Coreg NSTEMI: Heparin drip No active chest pain EKG did show T wave inversions Creatinine has improved VQ scan requested No active signs of shortness of breath or chest pain, no acute indication for coronary angiogram, secondary to COVID-19 this can be staged after 3 weeks In case of any active symptoms will consult cardiology On last visit Dr. Villarreal wanted to do an angiogram however it was not done because of THAI Acute on chronic kidney disease: Improving Patient did receive fluids at the time of admission at this point I am not adding diuretics Clinically does not look fluid overloaded Systolic congestive heart failure without acute exacerbation: EF 20 to 25%, patient has a LifeVest Metabolic encephalopathy secondary to hypoglycemia: Improved Full code Consistent carb diet Patient came transfer out of ICU DVT prophylaxis covered with heparin drip Attestations Medical Necessity Statement*: Continue medical management Time Spent in Patient Care: 20mins Coding Level of Care Code Acute Pairer for Chg Fwd Diagnoses COVID-19 determined by clinical diagnostic criteria U07.1 Hyponatremia E87.1 Acute on chronic kidney failure N17.9; N18.9 Hypoglycemia E16.2 Altered mental status R41.82 Acute urinary retention R33.8 Cardiomyopathy I42.9 Atrial fibrillation I48.91 CHF (congestive heart failure) I50.9 Diabetes E11.65 Diabetes mellitus type: type 2 Diabetes mellitus termite helper insulin use: without [facility] use Diabetes mellitus complication status: with hyperglycemia
[2021-12-20 10:07] LABS: Partial Thromboplastin Time 109.1 SECONDS (23.9-36.7)
--- NOTE | 2021-12-20 10:16 | PC.CHAP ---
Pastoral Care Encounter/Spiritual Assessment Type of Contact [] Declined pricing manager visit [] Patient/Family/Request visit [] Outpatient visit [] Follow-up visit [] Physician referral [] Code/Alert [x] Routine visit [] Staff referral [] Actively dying [] Patient sleeping [] Family support [] [] Out of room [] Palliative care [] [] Receiving care in room [] Pre-surgical visit [] Trauma [] Long length of stay [x] ICU visit [] Other: Relational/Emotional Strength [] Patient feels connected with others/family/visitors/staff [] Distress [] Loneliness/isolation [] Abandonment Spirituality of Patient [] Person of January [] Attends Muslim of their January [] Believes in Prayer [] Reads Bible or Tenriism materials [] There are Spiritual issues to be addressed Senior Center Director Interventions [x] Prayer [] Active listening [] Non-anxious presence [] Spiritual/emotional support [] Crisis/trauma care [] Spiritual counseling [] Bereavement support [] Provided bereavement packet [] Provided Bible/devotional materials [] Provided toy/stuffed animal, coloring book to patient or family member [] Provided Communion [] Anointing/[place] [] Salvation [x] Completed spiritual assessment [] Other: Impact on Illness or Injury [] Angry [] Fearful [] Anxious [] Often cries [] Exhaustion [] Unable to work [] Unable to attend taoism [] Unable to walk/stand [] Unable to read [] Unable to drive [] Unable to eat/drink [] Unable to sleep [] Unable to be with family [] Patient intubated [] Other: Summary Time spent with patient
[2021-12-20 11:35] LABS: Glucose Point of Care 280 mg/dL (70-110)
[2021-12-20] MEDS: dexamethasone 10 mg/mL INJ 6 MG IVP (15:06)
[2021-12-20 16:50] LABS: Partial Thromboplastin Time 62.2 SECONDS (23.9-36.7)
[2021-12-20 17:21] LABS: Glucose Point of Care 249 mg/dL (70-110)
[2021-12-20] MEDS: tamsulosin 0.4 mg Capsule PO (17:33)
[2021-12-20] MEDS: heparin drip 25,000 UNIT/500 ML PREMIX 15 UNIT IV (17:38)
[2021-12-20] MEDS: insulin glargine 100 units/1 mL 10 UNIT SUBCUT (20:08)
[2021-12-20 20:55] LABS: Glucose Point of Care 263 mg/dL (70-110)
[2021-12-20] MEDS: heparin 5,000 unit/mL INJ 1 mL IV (23:49)
[2021-12-21] VITALS (14 sets, daily range): BP systolic 91–134; BP diastolic 61–81; PULSE 59–80; RESP 10–19; TEMP 36.4; O2SAT 85–97; BMI 31.9
[2021-12-21 04:35] LABS: Basophils % 0.1 %; Eosinophils % 0.1 %; Hematocrit 32.7 % (42.0-52.0); Hemoglobin 10.6 g/dL (11.7-16.6); Lymphocytes # 0.8 10^3/uL (0.8-4.8); Lymphocytes % 7.4 %; Mean Corpuscular HGB Conc 32.4 g/dL (30.0-36.0); Mean Corpuscular Hemoglobin 27.2 pg (28.0-34.0); Mean Corpuscular Volume 83.8 fl (80-94); Mean Platelet Volume 12.8 fL (7.4-10.4); Monocytes # 0.9 10^3/uL (0.2-0.9); Neutrophils # 8.73 10^3/uL (1.8-7.7); Neutrophils % 82.1 %; Nucleated Red Blood Cells % 0 %; Platelet Count 137 10^3/cmm (130-400); Red Cell Distribution Width 13.9 % (12.1-15.1); White Blood Count 10.6 10^3/uL (4.0-10.0)
[2021-12-21 04:42] LABS: Blood Urea Nitrogen 41 mg/dL (8-23); Carbon Dioxide 24 mmol/L (22-29); Chloride 89 mmol/L (98-107); Glucose 259 mg/dL (65-115); Osmolality Calculated 279 mOsm/kg (285-295); Sodium 125 mmol/L (136-145)
[2021-12-21 04:50] LABS: Slide Review Slide Review Perform
[2021-12-21 07:44] LABS: Glucose Point of Care 220 mg/dL (70-110)
[2021-12-21] MEDS: insulin lispro 100 unit/1 mL SUBCUT ×2 (07:59→11:56)
[2021-12-21] MEDS: clopidogrel 75 mg Tablet PO (08:03)
[2021-12-21] MEDS: aspirin 81 mg EC Tablet PO (08:03)
[2021-12-21] MEDS: magnesium oxide 400 mg tablet PO (08:03)
[2021-12-21] MEDS: levothyroxine 112 mcg Tablet PO (08:03)
[2021-12-21] MEDS: atorvastatin 40 mg Tablet 20 MG PO (08:03)
--- NOTE | 2021-12-21 10:51 | P.DS_ITS ---
Discharge Providers Date of Admission: 12/18/21 09:45 Date of Discharge: December 21, 2021 Attending Provider at Admission: Renetta Koo MD Attending Provider at Discharge: Renetta Koo MD Primary Care Provider: Cynthia Carranza MD Diagnoses at Discharge Discharge Diagnosis (1) COVID-19 determined by clinical diagnostic criteria: Status: Acute (2) Hyponatremia: Status: Acute (3) Acute on chronic kidney failure: Status: Acute (4) Hypoglycemia: Status: Acute (5) Altered mental status: Status: Acute (6) Acute urinary retention: Status: Acute (7) Cardiomyopathy: Status: Acute (8) Atrial fibrillation: Status: Acute (9) CHF (congestive heart failure): Status: Acute (10) Diabetes: Status: Acute Qualifiers: Diabetes mellitus complication status: with hyperglycemia Diabetes mellitus skilled nursing insulin use: without skilled nursing use Diabetes mellitus type: type 2 Qualified Code(s): E11.65 - Type 2 diabetes mellitus with hyperglycemia Reason for Visit Reason for Visit: diabetes Hospital Course Hospital Course 76-year-old male who was recently discharged from the hospital on 12/13 after management of systolic congestive heart failure exacerbation ef 20% with aggressive IV Bumex and metolazone with -20 L balance presented to the hospital again for worsening of confusion. He was admitted on 12/18 for hypoglycemic event at home when he was found obtunded. His blood sugar improved when EMS gave him D50. His blood sugar remained stable afterwards, he started experiencing diarrhea in the hospital, he was saturating well on room air, his Covid test came back positive. He was treated with Decadron, octreotide in the beginning. After ruling out C. difficile he was given loperamide as well which improved his symptoms. Considering troponin leak he was started on heparin drip, he finished 48 hours on that heparin along aspirin and Plavix. His kidney function improved with IV fluid hydration, VQ scan ruled out PE. Urine and stool cultures unremarkable. Patient did well on room air, he did not require oxygen at all, kidney function improved with IV fluid hydration in the beginning. He only received fluids in the first 24 hours of his hospitalization. I have ordered giving him fluids because of his poor ejection fraction 20 to 25%. Patient was wearing LifeVest in the hospital. Now that his creatinine has improved, he can follow-up with his vine pruner for an elective angiogram. He needs angiogram because of his poor EF. He can get it scheduled after 15 more days of quarantine. He is not having any active chest pain or shortness of breath and still hemodynamically stable. At the time of discharge I have requested him to use diuretics only in case he gains weight more than 3 pounds of weight within 24 hours otherwise avoid taking Bumex for next few days. Potassium to be taken with Bumex only. Physical Exam Narrative: Patient is resting comfortably Doing well on room air Looks slightly dehydrated Abdomen soft No signs of edema Awake and alert Endorsing feeling better No active chest pain Doing well on room air no active conversational dyspnea Abdomen soft no audible stridor or wheezing Discharge Data Studies Completed and Pending Completed Studies During Hospitalization Category Date Time Status CT head wo con* [id number] Urgent Cat Scan 12/18/21 06:29 Completed XR chest 1V portable [id number] Urgent Exams 12/18/21 05:33 Completed Pending at discharge Category Date Time Status Arterial Blood Gas W/O Coox AM LABS Lab 12/19/21 04:00 Ordered PTT [Partial Thromboplastin Time] Timed Lab 12/21/21 11:00 Ordered Platelet Count Q2D Lab 12/23/21 04:00 Ordered Platelet Count Q2D Lab 12/23/21 04:00 Ordered NM pul vent and perfus* [id number] Routine Nuc Med 12/20/21 07:00 Ordered Radiology Impressions Chest X-Ray 12/18/21 05:33 IMPRESSION: No acute findings. Head CT 12/18/21 06:29 IMPRESSION: No acute intracranial abnormality. Laboratory Results WBC 10.6 10^3/uL (4.0-10.0) H 12/21/21 04:18 RBC 3.90 10^6/uL (4.1-5.3) L 12/21/21 04:18 Hgb 10.6 g/dL (11.7-16.6) L 12/21/21 04:18 Hct 32.7 % (42.0-52.0) L 12/21/21 04:18 MCV 83.8 fl (80-94) 12/21/21 04:18 MCH 27.2 pg (28.0-34.0) L 12/21/21 04:18 MCHC 32.4 g/dL (30.0-36.0) 12/21/21 04:18 RDW 13.9 % (12.1-15.1) 12/21/21 04:18 Plt Count 137 10^3/cmm (130-400) 12/21/21 04:18 MPV 12.8 fL (7.4-10.4) H 12/21/21 04:18 Neut % (Auto) 82.1 % 12/21/21 04:18 Lymph % (Auto) 7.4 % 12/21/21 04:18 [place] % (Auto) 8.0 % 12/21/21 04:18 Eos % (Auto) 0.1 % 12/21/21 04:18 Baso % (Auto) 0.1 % 12/21/21 04:18 Neut # (Auto) 8.73 10^3/uL (1.8-7.7) H 12/21/21 04:18 Lymph # (Auto) 0.8 10^3/uL (0.8-4.8) 12/21/21 04:18 [place] # (Auto) 0.9 10^3/uL (0.2-0.9) 12/21/21 04:18 Eos # (Auto) 0.0 10^3/uL (0.0-0.8) 12/21/21 04:18 Baso # (Auto) 0.0 10^3/uL (0.0-0.1) 12/21/21 04:18 Nucleated RBC % (auto) 0 % 12/21/21 04:18 Nucleated RBCs # 0.0 /100WBC 12/21/21 04:18 APTT 80.0 SECONDS (23.9-36.7) H D 12/21/21 04:18 D-Dimer 1.25 ug/mIFEU (0-0.59) H 12/19/21 04:27 Sodium 125 mmol/L (136-145) L 12/21/21 04:18 Potassium 4.0 mmol/L (3.5-5.1) 12/21/21 04:18 Chloride 89 mmol/L (98-107) L 12/21/21 04:18 Carbon Dioxide 24 mmol/L (22-29) 12/21/21 04:18 Anion Gap 16.0 (5-19) 12/21/21 04:18 BUN 41 mg/dL (8-23) H 12/21/21 04:18 Creatinine 1.2 mg/dL (0.7-1.2) 12/21/21 04:18 GFR Calculation Not Reportable 12/21/21 04:18 Glucose 259 mg/dL (65-115) H 12/21/21 04:18 POC Glucose 220 mg/dL (70-110) H 12/21/21 07:41 Estimat Average Glucose 206 12/18/21 05:38 Hemoglobin A1c 8.8 % (4.0-6.0) H 12/18/21 05:38 Calculated Osmolality 279 mOsm/kg (285-295) L 12/21/21 04:18 Lactate 1.3 mmol/L (0.5-2.2) 12/18/21 05:38 Calcium 8.0 mg/dL (8.5-10.5) L 12/21/21 04:18 Magnesium 1.8 mg/dL (1.7-2.3) 12/18/21 05:38 Total Bilirubin 0.8 mg/dL (0.15-1.2) 12/19/21 04:27 AST 26 U/L (0-40) 12/19/21 04:27 ALT 21 U/L (0-41) 12/19/21 04:27 Alkaline Phosphatase 90 IU/L (40-130) 12/19/21 04:27 Troponin T Baseline 106 ng/L (0-15) H* 12/19/21 10:38 Troponin T 120 Minute 125.9 ng/L (0-15) H 12/18/21 08:21 Delta Troponin T 3.9 ABS# (0-10) 12/18/21 08:21 C-Reactive Protein 37.4 mg/L (0.0-4.9) H 12/19/21 04:27 NT-Pro-B Natriuret Pep 3551 pg/mL (0-125) H 12/18/21 05:38 Total Protein 6.5 g/dL (6.6-8.7) L 12/19/21 04:27 Albumin 3.1 g/dL (3.5-5.2) L 12/19/21 04:27 Globulin 3.4 g/dL (1.3-4.6) 12/19/21 04:27 Procalcitonin 0.12 ng/mL (0-0.5) 12/18/21 05:38 Random Cortisol 55.99 ug/dL (2.47-19.5) H 12/18/21 05:38 Urine Color Yellow (Yellow) 12/18/21 08:28 Urine Appearance Clear (CLEAR) 12/18/21 08:28 Urine pH 5 (5-7) 12/18/21 08:28 Ur Specific [place] 1.010 (1.005-1.030) 12/18/21 08:28 Urine Protein Neg (Negative) 12/18/21 08:28 Urine Glucose (UA) Norm (Normal) 12/18/21 08:28 Urine Ketones Negative (Negative) 12/18/21 08:28 Urine Blood Neg (Negative) 12/18/21 08:28 Urine Nitrate Negative (Negative) 12/18/21 08:28 Urine Bilirubin Neg (Negative) 12/18/21 08:28 Urine Urobilinogen Norm mg/dL (Negative) 12/18/21 08:28 Ur Leukocyte Esterase Negative (Negative) 12/18/21 08:28 Coronavirus 229E (PCR) Not detected (NOT DETECT) 12/18/21 09:55 SARS-CoV-2 (PCR) Detected (NOT DETECT) A 12/18/21 09:55 Vitals Last Vital Signs Temp 97.5 F L 12/21/21 04:00 Pulse 62 12/21/21 10:00 Resp 12 12/21/21 10:00 BP 121/75 12/21/21 10:00 Pulse Ox 96 12/21/21 10:00 Discharge Plan Discharge Patient Disposition: Home Condition: Stable Prescriptions: New albuterol sulfate 90 mcg/actuation HFA aerosol inhaler 2 inh inhalation Q8H PRN (Reason: shortness of breath or wheezing) Qty: 8.5 2RF Continued aspirin [Adult Aspirin Regimen] 81 mg tablet,delayed release (DR/EC) 81 mg PO DAILY 0RF metformin 1,000 mg tablet 500 mg PO BID 0RF Rx Instructions: Take 1 tablet by mouth twice daily nitroglycerin 0.4 mg tablet, sublingual 0.4 mg sublingual Q5M Qty: 30 3RF Rx Instructions: do not exceed 3 doses per episode glimepiride 4 mg tablet 4 mg PO BID 90 Days Qty: 180 3RF levothyroxine 112 mcg tablet 112 mcg PO DAILY Qty: 90 3RF sitagliptin 100 mg tablet 100 mg PO DAILY Qty: 90 3RF cefuroxime axetil 250 mg tablet 250 mg PO BID 7 Days Qty: 14 0RF tamsulosin 0.4 mg capsule 0.4 mg PO QDAY Qty: 30 12RF atorvastatin 20 mg tablet 20 mg PO DAILY 90 Days Qty: 90 3RF clopidogrel 75 mg tablet 75 mg PO DAILY 90 Days Qty: 90 3RF Hold Instructions: Resume on 12/17/21. until blood in urine resolves lisinopril 10 mg Tablet 10 mg PO DAILY 0RF Magnesium Oxide [Magox] 400 mg PO BID 30 Days Qty: 60 0RF carvedilol 6.25 mg Tablet 6.25 mg PO BID 0RF Rx Instructions: must administer with a meal/food Changed bumetanide 1 mg Tablet 1 mg PO PRN 30 Days Qty: 30 0RF potassium chloride 20 mEq tablet extended release 20 meq PO DIRECTED Qty: 90 3RF Discontinued potassium chloride [Klor-Con M20] 20 mEq Tablet,Er Particles/Crystals 40 meq PO BID Qty: 120 0RF Discharge Orders: Discharge Order (Routine); Ordered 12/21/21 Ordered By: Renetta Koo Referrals: [facility] [Outside] ([facility] will admit you to their services tomorrow December 22. The nurse will be calling you to arrange what time she should be there. If you have any questions please call them at [phone].) Cynthia Carranza MD [Primary Care Provider] - Renetta Villarreal MD [Physician] - 01/04/22 10:45 am (WITH BRIDGET) Discharge Diet: Cardiac Discharge Activity: Increase activity as tolerated Patient Instructions: Albuterol (By breathing) (ProAir, AccuNeb, Proventil, Proventil..., Heart Healthy Diet (DC), Hyponatremia (DC), Opioid Safety Activity Restrictions/Additional Instructions: Qurantine for next 10 days and then see cardiology for the angiogram Only take Bumex if you notice weight gain more than 3 pounds in 24 hours, otherwise hold off on taking potassium supplementation and Bumex for now Creatinine today has normalized it is 1.2 at the time of discharge we did not give you any water pills during this hospitalization Discharge Attestations Time Spent in Discharge Care*: less than 30 min Quality Metrics Clinical Quality Measures [ No reported AMI, CVA or VTE this stay] Coding Level of Care Code Acute Chg FW DC note Diagnoses COVID-19 determined by clinical diagnostic criteria U07.1 Hyponatremia E87.1 Acute on chronic kidney failure N17.9; N18.9 Hypoglycemia E16.2 Altered mental status R41.82 Acute urinary retention R33.8 Cardiomyopathy I42.9 Atrial fibrillation I48.91 CHF (congestive heart failure) I50.9 Diabetes E11.65 Diabetes mellitus complication status: with hyperglycemia Diabetes mellitus skilled nursing insulin use: without skilled nursing use Diabetes mellitus type: type 2
--- NOTE | 2021-12-21 11:19 | PC.SOCIAL ---
IMM update IMM updated with patient's daughter and . Verbalized an understanding. Initialled, dated, timed, and placed in chart.
[2021-12-21 11:29] LABS: Partial Thromboplastin Time 48.8 SECONDS (23.9-36.7)
[2021-12-21 11:30] LABS: Glucose Point of Care 279 mg/dL (70-110)
--- NOTE | 2021-12-21 12:34 | PC.NURSE ---
Discharge instructions given to patient, IV removed. Patient and belongings taken to private vehicle via wheelchair by this nurse, accompanied by . No further questions.
== END 2021-12-21 12:20 | disposition home health service (06) | DRG 637 ==
LOC: ER 06:29 → ER IP 15:06 → ICU 18:25
PROVIDERS: Emergency Medicine; Family Medicine; Internal Medicine; Admitting Provider Internal Medicine; Emergency Provider Emergency Medicine; PCP Family Medicine; Visit Provider Internal Medicine
DX: E11.649 Type 2 diabetes mellitus with hypoglycemia without coma (principal); G93.41 Metabolic encephalopathy; U07.1 COVID-19; I21.4 Non-ST elevation (NSTEMI) myocardial infarction; I13.0 Hypertensive heart and chronic kidney disease with heart failure and stage 1 through stage 4 chronic kidney disease, or unspecified chronic kidney disease; I50.22 Chronic systolic (congestive) heart failure; E87.1 Hypo-osmolality and hyponatremia; I42.9 Cardiomyopathy, unspecified; E11.22 Type 2 diabetes mellitus with diabetic chronic kidney disease; N18.9 Chronic kidney disease, unspecified; I25.10 Atherosclerotic heart disease of native coronary artery without angina pectoris; Z98.61 Coronary angioplasty status; E78.5 Hyperlipidemia, unspecified; E03.9 Hypothyroidism, unspecified; I48.91 Unspecified atrial fibrillation; E78.00 Pure hypercholesterolemia, unspecified; N17.9 Acute kidney failure, unspecified; R33.9 Retention of urine, unspecified; Y73.1 Therapeutic (nonsurgical) and rehabilitative gastroenterology and urology devices associated with adverse incidents; Z79.02 Long term (current) use of antithrombotics/antiplatelets; Z79.84 Long term (current) use of oral hypoglycemic drugs; Z79.82 Long term (current) use of aspirin; R31.0 Gross hematuria; T83.098A Other mechanical complication of other urinary catheter, initial encounter
CPT/HCPCS: 36415; 36416; 70450; 71045; 80048; 80053; 81001; 81003; 82274; 82533; 82550; 82947; 82962; 83036; 83605; 83630; 83735; 83880; 84145; 84484; 85025; 85378; 85730; 86140; 87086; 87493; 87506; 87635; 93005; 96360; 96372; 96374; 96375; 99284; 99285; J1100; J1644; J1815 ×2; J2270; J2354; J2370; J7050

== ENCOUNTER 2021-12-23 22:42 | Inpatient (IN) | payer MEDICARE, BC, SELFPAY ==
--- NOTE | 2021-12-23 22:46 | ECG_ITS ---
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 Measurements Intervals [place] Rate: 66 P: -53 RI: 166 QRS: -24 QRSD: 111 T: 93 QT: 401 QTc: 422 Interpretive Statements SINUS RHYTHM LOW QRS VOLTAGE [QRS DEFLECTION < 0.5/1.0 mV IN LIMB/CHEST LEADS] ANTERIOR MYOCARDIAL INFARCTION , PROBABLY OLD [40+ ms Q WAVE AND/OR ST/T ABNORMALITY IN V3/V4] Compared to ECG 12/20/2021 08:30:31 Low QRS voltage now present Left-axis deviation no longer present Myocardial infarct finding still present Electronically Signed On 12-24-2021 15:24:41 [employer]Y HOUSE TENDER by Cherry Toscano M.D. [id number]
--- NOTE | 2021-12-23 22:46 | XRR_ITS ---
PROCEDURE INFORMATION: Exam: XR Chest Exam date and time: 12/23/2021 10:46 PM Age: 76 years old Clinical indication: Radiating; Patient HX: Chest pain with weakness; Additional info: Cp TECHNIQUE: Imaging protocol: XR of the chest. Views: 1 view. COMPARISON: CR (CHEST, ) 12/18/2021 5:40 AM FINDINGS: Tubes, catheters and devices: Numerous external electrodes and wires overlie the chest. Lungs: The lungs are grossly clear Pleural spaces: Unremarkable. No pleural effusion. No pneumothorax. Heart/Mediastinum: Unremarkable. No cardiomegaly. Bones/joints: Unremarkable. XR/XR chest 1V portable [id number] IMPRESSION: Lungs clear
[2021-12-23 22:47] VITALS: BP 102/67; PULSE 66; RESP 22; TEMP 36.4; O2SAT 94; BMI 29.9
--- NOTE | 2021-12-23 22:51 | ED_ITS ---
HPI - Weakness General: Chief complaint: Weakness Stated complaint: WEAKNESS Time Seen by Provider: 12/23/21 22:42 Source: patient and EMS Mode of arrival: EMS Limitations: no limitations History of Present Illness: 76-year-old male who has extensive medical problems with severe congestive heart failure with ejection fraction around 20% he is been here multiple times recently just got out of the hospital 2 days ago. Family had called EMS because they were concerned she is having some bradycardia into the 40s at home. His heart rate here is in the 60s. He states he feels generally weak but states he has felt like that for months he has no new complaint denies any fever did recently have Covid. Associated symptoms: Denies chest pain, chills, dysuria, easy bruising, fever(s), nausea or vomiting Review of Systems Const: Denies: fever(s), chills, body aches or change in appetite Eyes: Denies: blurry vision or eye discomfort ENMT: Denies: throat pain or dental pain Card: Denies: chest pain Resp: Denies: dyspnea GI: Denies: abdominal pain, nausea, vomiting or diarrhea : Denies: dysuria Musc: Denies: neck pain or back pain Skin/Breast: Denies: rash Neuro: Reports: weakness in extremities Psych: Denies: depression See/Lymph: Denies: easy bruising All/Imm: Denies: urticaria PFSH ED PFSH: Medical History Acquired hypothyroidism Acute renal failure Atrial fibrillation Atrial fibrillation, new onset Cardiomyopathy CHF (congestive heart failure) Diabetes Gross hematuria Hematuria Hypercholesteremia Hypertension Hypothalamic hypothyroidism Shortness of breath Surgical History History of coronary angioplasty History of hand surgery Family History Father , AT AGE 83 Heart disease Mother , AT AGE 80 Heart disease Social History Smoking and tobacco status: never smoked Alcohol intake: never Marital status: Current occupational status: retired History of recent travel: No Physical Exam Const: COMMON NORMALS: no acute distress, patient oriented x3 and healthy appearing HENMT: COMMON NORMALS: normocephalic and atraumatic HEAD & SCALP: norm ocephalic and atraumatic Eye: COMMON NORMALS: Equal, round and reactive pupils present and EOMs intact bilaterally PUPIL: Yes Equal, round and reactive pupils present Neck/C-Spine: COMMON NORMALS: full ROM and supple Chest: COMMONS NORMALS: normal inspection of the chest and normal palpation of entire chest wall Resp: COMMON NORMALS: normal respiratory effort, No retractions, No use of accessory muscles and clear to auscultation bilaterally AUSCULTATION: clear to auscultation bilaterally Cardio: COMMON NORMALS: regular rate, regular rhythm and No murmurs present (Cardio) RATE: regular rate RHYTHM: regular rhythm GI: COMMON NORMALS: Normal to inspection, nondistended, normoactive bowel sounds present, Soft to palpation, non-tender and no masses PALPATION: Yes Soft to palpation Extremity: COMMON NORMALS: normal to inspection and full ROM Neuro: COMMON NORMALS: patient oriented x3, moves all extremities and no focal motor deficits Psych: COMMON NORMALS: mental status grossly normal, Normal thought process present and cooperative THOUGHT PROCESS: Normal thought process present Skin: COMMON NORMALS: no rashes or lesions noted and no wounds GENERAL SKIN EXAM: no rashes or lesions noted Course Vital Signs: Vital signs: Vital Signs Temperature 97.6 F 12/23/21 22:47 Pulse Rate 66 12/23/21 22:47 Respiratory Rate 22 H 12/23/21 22:47 Blood Pressure 102/67 12/23/21 22:47 Pulse Oximetry 94 12/23/21 22:47 MDM - Weakness Medical Decision Making Patient presents here with generalized weakness not feeling well his troponin here is elevated from baseline when he left it was 106 540 currently EKG showed no ST elevation. I did speak to cardiology Dr. Toscano will start on heparin and admit Lab Data : 12/23/21 22:52 12/23/21 22:52 Radiology Impressions Chest X-Ray 12/23/21 22:46 IMPRESSION: Lungs clear Laboratory Results WBC 14.6 10^3/uL (4.0-10.0) H 12/23/21 22:52 RBC 3.97 10^6/uL (4.1-5.3) L 12/23/21 22:52 Hgb 10.9 g/dL (11.7-16.6) L 12/23/21:52 Hct 35.0 % (42.0-52.0) L 12/23/21:52 MCV 88.2 fl (80-94) 12/23/21 22:52 MCH 27.5 pg (28.0-34.0) L 12/23/21:52 MCHC 31.1 g/dL (30.0-36.0) 12/23/21:52 RDW 14.4 % (12.1-15.1) 12/23/21:52 Plt Count 170 10^3/cmm (130-400) 12/23/21 22:52 MPV 12.3 fL (7.4-10.4) H 12/23/21:52 Neut % (Auto) 81.8 % 12/23/21:52 Lymph % (Auto) 6.7 % 12/23/21:52 [place] % (Auto) 5.6 % 12/23/21:52 Eos % (Auto) 0.9 % 12/23/21:52 Baso % (Auto) 0.4 % 12/23/21:52 Neut # (Auto) 11.90 10^3/uL (1.8-7.7) H 12/23/21:52 Lymph # (Auto) 1.0 10^3/uL (0.8-4.8) 12/23/21:52 [place] # (Auto) 0.8 10^3/uL (0.2-0.9) 12/23/21:52 Eos # (Auto) 0.1 10^3/uL (0.0-0.8) 12/23/21:52 Baso # (Auto) 0.1 10^3/uL (0.0-0.1) 12/23/21:52 Nucleated RBC % (auto) 0 % 12/23/21: Nucleated RBCs # 0.0 /100WBC 12/23/21:52 PT 15.40 SECONDS (12.1-14.9) H 12/23/21 22:52 INR 1.19 (0.8-1.2) 12/23/21:52 Sodium 126 mmol/L (136-145) L 12/23/21 22:52 Potassium 4.0 mmol/L (3.5-5.1) 12/23/21 22:52 Chloride 91 mmol/L (98-107) L 12/23/21 22:52 Carbon Dioxide 21 mmol/L (22-29) L 12/23/21 22:52 Anion Gap 18.0 (5-19) 12/23/21 22:52 BUN 41 mg/dL (8-23) H 12/23/21 22:52 Creatinine 1.3 mg/dL (0.7-1.2) H 12/23/21 22:52 GFR Calculation Not Reportable 12/23/21 22:52 Glucose 267 mg/dL (65-115) H 12/23/21 22:52 Calculated Osmolality 281 mOsm/kg (285-295) L 12/23/21 22:52 Calcium 9.0 mg/dL (8.5-10.5) 12/23/21 22:52 Total Bilirubin 0.9 mg/dL (0.15-1.2) 12/23/21 22:52 AST 26 U/L (0-40) 12/23/21 22:52 ALT 32 U/L (0-41) 12/23/21 22:52 Alkaline Phosphatase 126 IU/L (40-130) 12/23/21 22:52 Troponin T Baseline 540 ng/L (0-15) H* 12/23/21 22:52 NT-Pro-B Natriuret Pep 3857 pg/mL (0-125) H 12/23/21 22:52 Total Protein 6.8 g/dL (6.6-8.7) 12/23/21 22:52 Albumin 3.2 g/dL (3.5-5.2) L 12/23/21 22:52 Globulin 3.6 g/dL (1.3-4.6) 12/23/21 22:52 EKG Data EKG 1: I personally reviewed and interpreted this EKG as follows: EKG interpretation date: 12/23/21 EKG interpretation time: 22:50 Interpretation: nsr hr [address] or t wave abnormalities qrs 111 qtc 415 Discharge Plan Discharge Patient Disposition: Admitted As Inpatient Clinical Impression: Non-ST elevation SD (NSTEMI) Condition: Stable Coding Level of Care Code ED Public Policy Analyst for Chg Fwd Exam Comprehensive
[2021-12-23 23:00] LABS: Basophils # 0.1 10^3/uL (0.0-0.1); Basophils % 0.4 %; Eosinophils # 0.1 10^3/uL (0.0-0.8); Eosinophils % 0.9 %; Hemoglobin 10.9 g/dL (11.7-16.6); Lymphocytes % 6.7 %; Mean Corpuscular HGB Conc 31.1 g/dL (30.0-36.0); Mean Corpuscular Hemoglobin 27.5 pg (28.0-34.0); Mean Corpuscular Volume 88.2 fl (80-94); Mean Platelet Volume 12.3 fL (7.4-10.4); Monocytes # 0.8 10^3/uL (0.2-0.9); Monocytes % 5.6 %; Neutrophils % 81.8 %; Nucleated Red Blood Cells % 0 %; Platelet Count 170 10^3/cmm (130-400); Red Blood Count 3.97 10^6/uL (4.1-5.3); Red Cell Distribution Width 14.4 % (12.1-15.1); White Blood Count 14.6 10^3/uL (4.0-10.0)
[2021-12-23 23:10] LABS: INR 1.19 (0.8-1.2)
[2021-12-23 23:22] LABS: Slide Review Slide Review Perform
[2021-12-23 23:24] LABS: Troponin(5th) Baseline 540 ng/L (0-15)
[2021-12-23 23:27] LABS: Alanine Aminotransferase 32 U/L (0-41); Albumin Level 3.2 g/dL (3.5-5.2); Alkaline Phosphatase 126 IU/L (40-130); Aspartate Amino Transferase 26 U/L (0-40); Blood Urea Nitrogen 41 mg/dL (8-23); Carbon Dioxide 21 mmol/L (22-29); Chloride 91 mmol/L (98-107); Globulin 3.6 g/dL (1.3-4.6); Glucose 267 mg/dL (65-115); NT Pro B Type Natriuretic Pept 3857 pg/mL (0-125); Osmolality Calculated 281 mOsm/kg (285-295); Sodium 126 mmol/L (136-145); Total Bilirubin 0.9 mg/dL (0.15-1.2); Total Protein 6.8 g/dL (6.6-8.7)
[2021-12-23] MEDS: heparin 5,000 unit/mL INJ 1 mL 4000 UNIT IVP (23:54)
[2021-12-23] MEDS: heparin drip 25,000 UNIT/500 ML PREMIX 22.1 UNIT IV (23:57)
[2021-12-24] VITALS (13 sets, daily range): BP systolic 97–123; BP diastolic 47–67; PULSE 48–100; RESP 12–23; TEMP 36.1–36.8; O2SAT 91–100; BMI 31.5
--- NOTE | 2021-12-24 00:43 | PM.HP ---
Providers/Chief Complaint Admitting Physician: Cayetano Mason MD Primary Care Provider: Cynthia Carranza MD Chief Complaint: WEAKNESS History of Present Illness Gordy Fiore is a 76 year old male who presents to the emergency department as his home monitor read a low heart rate in the 40s. He states he has felt very tired since discharge, and is short of breath whenever he exerts himself. He has not really had any chest discomfort. He denies any fever. He reports he has been taking his medication as prescribed, and his weight has been stable. After work-up in the emergency department, troponin was noted to be higher than his baseline. The emergency department physician called cardiology, who recommended admission, heparin drip, angiogram in the morning. He reports he is able to lay flat. From my understanding an angiogram had been proposed earlier, as an outpatient. Secondary to Covid this has been delayed. Review of Systems General: Reports: 10 or more systems reviewed and unremarkable except in HPI and below Const: Reports: fatigue and malaise; Denies: fever(s) or chills Eyes: Denies: change in vision ENMT: Denies: throat pain Card: Reports: swelling of feet/ankles, dyspnea on exertion and orthopnea; Denies: chest pain Resp: Reports: dyspnea; Denies: hemoptysis GI: Denies: abdominal pain : Denies: flank pain Musc: Denies: neck pain Skin/Breast: Denies: rash Neuro: Denies: headache(s) Psych: Denies: anxiety Endo: Denies: polyuria See/Lymph: Denies: easy bruising All/Imm: Denies: urticaria Medications/Allergies Home Medications Medication Instructions Recorded Confirmed Last Taken Type aspirin 81 mg tablet,delayed 81 mg PO DAILY 12/26/19 12/18/21 12/04/21 History release (Adult Aspirin Regimen) atorvastatin 20 mg tablet 20 mg PO DAILY 90 Days #90 tab 01/11/21 12/18/21 12/04/21 Rx clopidogrel 75 mg tablet 75 mg PO DAILY 90 Days #90 tab 02/11/21 12/18/21 12/04/21 Rx glimepiride 4 mg tablet 4 mg PO BID 90 Days #180 tab 08/10/21 12/18/21 12/04/21 Rx levothyroxine 112 mcg tablet 112 mcg PO DAILY #90 tab 08/10/21 12/18/21 12/04/21 Rx sitagliptin 100 mg tablet 100 mg PO DAILY #90 tab 08/10/21 12/18/21 12/04/21 Rx metformin 1,000 mg tablet 500 mg PO BID tab 11/22/21 12/18/21 12/04/21 History nitroglycerin 0.4 mg sublingual 0.4 mg SUBLINGUAL Q5M #30 tab 12/02/21 12/18/21 Unknown Rx tablet magnesium oxide [Magox] 400 mg PO BID 30 Days #60 cap 12/13/21 12/18/21 Unknown Rx cefuroxime axetil 250 mg tablet 250 mg PO BID 7 Days #14 tab 12/14/21 12/18/21 Unknown Rx tamsulosin 0.4 mg capsule 0.4 mg PO QDAY #30 cap 12/14/21 12/18/21 Unknown Rx carvedilol 6.25 mg tablet 6.25 mg PO BID 12/18/21 12/18/21 Unknown History albuterol sulfate 90 mcg/actuation 2 inh INHALATION Q8H PRN #8.5 g 12/21/21 Unknown Rx aerosol inhaler bumetanide 1 mg tablet 1 mg PO PRN 30 Days #30 tab 12/21/21 12/18/21 Unknown Rx potassium chloride 20 mEq 20 meq PO DIRECTED #90 tab 12/21/21 12/18/21 12/04/21 Rx tablet,extended release promethazine 6.25 mg-codeine 10 5 ml PO Q6H PRN #240 ml 12/22/21 Unknown Rx mg/5 mL syrup lisinopril 10 mg tablet 10 mg PO DAILY 30 Days #30 tab 12/23/21 Unknown Rx Allergies Allergy/AdvReac Type Severity Reaction Status Date / Time No Known Allergies Allergy Verified 12/18/21 05:35 PFSH Acute PFSH: Medical History (Updated 12/24/21 @ 01:07 by Cayetano Mason MD) Acquired hypothyroidism Acute renal failure Atrial fibrillation Atrial fibrillation, new onset Cardiomyopathy CHF (congestive heart failure) Diabetes Gross hematuria Hematuria Hypercholesteremia Hypertension Hypothalamic hypothyroidism Shortness of breath Surgical History History of coronary angioplasty History of hand surgery Family History Father , AT AGE 83 Heart disease Mother , AT AGE 80 Heart disease Social History Smoking and tobacco status: never smoked Alcohol intake: never Marital status: Current occupational status: retired History of recent travel: No Vitals/I&O/Wt Last Vital Signs Temp 97.6 F 12/23/21 22:47 Pulse 65 12/24/21 00:11 Resp 22 H 12/24/21 00:11 BP 106/66 12/24/21 00:11 Pulse Ox 98 12/24/21 00:11 Weight last 48 hrs Weight 92.079 kg Physical Exam Narrative: General exam is a conversant male, no distress. Heart rate here is in the 60s. HEENT: Pupils equally round. Oropharynx clear. Neck is supple no lymphadenopathy or thyromegaly Cardiovascular regular rate and rhythm, no murmur Lungs clear but with diminished breath sounds at the bases. No crackles Abdomen is soft nontender positive bowel sounds. No obvious organomegaly exam is deferred Extremities show trace edema bilaterally. No cyanosis or clubbing Skin no rash Neuro no focal deficits. Data : 12/23/21 22:52 12/23/21 22:52 Other Labs: INR 1.19 Calcium 9.0 LFTs normal Troponin V 140 BNP 3857 Albumin 3.2 Chest x-ray clear EKG demonstrates a sinus rhythm, borderline left axis deviation, poor R wave progression likely previous anterior myocardial infarction. Flipped T waves are noted laterally and inferiorly. This is similar to previous EKGs. Echocardiogram in November demonstrated severely reduced LV function at 20%. A&P Assessment and plan (1) Non-ST elevation [place] (NSTEMI): Significant elevation in troponin. Cardiology consultation Heparin drip initiated per cardiology in the emergency department N.p.o. after midnight for possible angiogram. Patient initially presented to the emergency department with concerns of bradycardia, severe fatigue. Continue aspirin, Plavix, statin, carvedilol Status: Acute (2) COVID-19 determined by clinical diagnostic criteria: Tested positive on the . He should still be in quarantine. Precautions entered. Currently not requiring oxygen. Status: Acute (3) Cardiomyopathy: Presumed ischemic cardiomyopathy. Last echocardiogram in November demonstrated EF of 20% He has a LifeVest Continue beta-barry, [place] inhibitor Work-up proposed tomorrow, angiogram Status: Acute (4) Diabetes: Sliding scale insulin Status: Acute Qualifiers: Diabetes mellitus type: type 2 Diabetes mellitus [facility] insulin use: without [facility] use Diabetes mellitus complication status: with hyperglycemia Qualified Code(s): E11.65 - Type 2 diabetes mellitus with hyperglycemia Plan Multiple other medical problems as outlined in past medical history Full code Heparin drip will suffice for DVT prophylaxis. Attestations Medical Necessity Statement*: Will need greater than 2 midnight stay secondary to non-ST elevation myocardial infarction Coding Level of Care Code Acute Information Systems Technician for [facility] [employer] [facility] [employer] [facility] Diagnoses Non-ST elevation AR (NSTEMI) I21.4 COVID-19 determined by clinical diagnostic criteria U07.1 Cardiomyopathy I42.9 Diabetes E11.65 Diabetes mellitus type: type 2 Diabetes mellitus [facility] insulin use: without exterminator use Diabetes mellitus complication status: with hyperglycemia
--- NOTE | 2021-12-24 00:46 | ECG_ITS ---
[facility] Test Date: 2021-12-24 Pat Name: Gordy Fiore Department: Room: 105 Gender: Male Day Worker: : 1945 Requested By: Eduardo Mari Order Number: [id number] Antonio MD: Cherry Toscano M.D. Measurements Intervals [place] Rate: 60 P: -67 CA: 150 QRS: -29 QRSD: 120 T: 120 QT: 429 QTc: 429 Interpretive Statements SINUS RHYTHM POSSIBLE ANTERIOR MYOCARDIAL INFARCTION , PROBABLY OLD [30 ms Q WAVE IN V3/V4, OR R < 0.2 mV IN V4] Compared to ECG 12/23/2021 22:50:27 No significant changes Electronically Signed On 12-25-2021 10:32:24 OCCUPATIONAL PSYCHOLOGIST by Cherry Toscano M.D. [id number]
[2021-12-24 01:14] LABS: Troponin 5 2HR 484.8 ng/L (0-15)
[2021-12-24] MEDS: heparin drip 25,000 UNIT/500 ML PREMIX 27 UNIT IV (01:16)
[2021-12-24] MEDS: tamsulosin 0.4 mg Capsule PO ×2 (01:55→08:04)
--- NOTE | 2021-12-24 04:46 | ECG_ITS ---
Test Date: 2021-12-24 Pat Name: Gordy Fiore Department: Room: 105 Gender: Male Quality Management Coordinator: : 1945 Requested By: Eduardo Mari Order Number: [id number] Antonio MD: Cherry Toscano M.D. Measurements Intervals [place] Rate: 62 P: 112 HI: 163 QRS: -57 QRSD: 117 T: 95 QT: 405 QTc: 413 Interpretive Statements SINUS RHYTHM LOW QRS VOLTAGE [QRS DEFLECTION < 0.5/1.0 mV IN LIMB/CHEST LEADS] POSSIBLE ANTERIOR MYOCARDIAL INFARCTION , PROBABLY OLD [30 ms Q WAVE IN V3/V4, OR R < 0.2 mV IN V4] INFERIOR MYOCARDIAL INFARCTION , PROBABLY OLD [40+ ms Q WAVE AND/OR ST/T ABNORMALITY IN II/aVF] Compared to ECG 12/24/2021 01:44:26 Low QRS voltage now present Myocardial infarct finding still present Electronically Signed On 12-24-2021 15:28:11 BARIATRIC PROGRAM COORDINATOR by Cherry Toscano M.D. [id number]
[2021-12-24 06:24] LABS: Basophils # 0.1 10^3/uL (0.0-0.1); Basophils % 0.4 %; Eosinophils # 0.1 10^3/uL (0.0-0.8); Hematocrit 30.9 % (42.0-52.0); Hemoglobin 9.6 g/dL (11.7-16.6); Lymphocytes # 1.3 10^3/uL (0.8-4.8); Lymphocytes % 10.8 %; Mean Corpuscular HGB Conc 31.1 g/dL (30.0-36.0); Mean Corpuscular Hemoglobin 26.8 pg (28.0-34.0); Mean Corpuscular Volume 86.3 fl (80-94); Mean Platelet Volume 12.4 fL (7.4-10.4); Monocytes # 0.8 10^3/uL (0.2-0.9); Monocytes % 6.6 %; Neutrophils # 9.34 10^3/uL (1.8-7.7); Neutrophils % 76.7 %; Nucleated Red Blood Cells % 0 %; Platelet Count 174 10^3/cmm (130-400); Red Blood Count 3.58 10^6/uL (4.1-5.3); Red Cell Distribution Width 14.4 % (12.1-15.1); White Blood Count 12.2 10^3/uL (4.0-10.0)
[2021-12-24 06:33] LABS: Glucose Point of Care 198 mg/dL (70-110)
[2021-12-24 06:36] LABS: Anion Gap 14.7 (5-19); Blood Urea Nitrogen 41 mg/dL (8-23); Calcium 8.9 mg/dL (8.5-10.5); Carbon Dioxide 26 mmol/L (22-29); Chloride 93 mmol/L (98-107); Glucose 196 mg/dL (65-115); Osmolality Calculated 286 mOsm/kg (285-295); Potassium 3.7 mmol/L (3.5-5.1); Sodium 130 mmol/L (136-145)
[2021-12-24 06:37] LABS: Partial Thromboplastin Time 119.1 SECONDS (23.9-36.7)
[2021-12-24] MEDS: famotidine 20 mg Tablet PO ×2 (08:00→18:46)
[2021-12-24] MEDS: atorvastatin 40 mg Tablet 20 MG PO (08:01)
[2021-12-24] MEDS: aspirin 81 mg EC Tablet PO (08:02)
[2021-12-24] MEDS: clopidogrel 75 mg Tablet PO (08:02)
[2021-12-24] MEDS: lisinopril 10 mg Tablet PO (08:04)
[2021-12-24] MEDS: levothyroxine 112 mcg Tablet PO (08:04)
[2021-12-24] MEDS: carvedilol 6.25 mg Tablet PO ×2 (08:04→18:46)
--- NOTE | 2021-12-24 08:55 | PM.CONSULT ---
Providers/Reason For Consult Consulting Physician/Specialty*: Dr. Toscano, Cardiology Reason for Consult*: NSTEMI, CHF Attending Physician: Bronson Purdy MD Primary Care Provider: Cynthia Carranza MD History of Present Illness History of Present Illness Gordy Fiore is a 76 year old male with past medical history of hypertension, dyslipidemia, hypothyroidism, coronary artery disease, history of 3 stent last one in 2013 who was initially seen in office by Dr. Villarreal for weight gain, worsening shortness of breath, PND, orthopnea and echo with severe LV dysfunction. He was scheduled to undergo left heart cath however he got admitted to the hospital initialliy (12/04-12/13) for decompensated CHF, short run of atrial fibrillation and gross hematuria. He has bee in ER on 12/15 and then 12/18 when he got admitted for COVID-19 PNA with symptoms of confusion, diarrhea. He was treated with Decadron, octreotide in the beginning.? After ruling out C. difficile he was given loperamide. Given, troponin leak he was started on heparin gtt along with aspirin and Plavix.? His kidney function improved with IV fluid hydration, VQ scan ruled out PE.?He got discharged on 12/21 and then was readmitted for low heart rate in the 40s, feeling very tired and exertional short of breath. He denies any chest discomfort, fever. TRoponin T 540-->484-->453. He was started on heparin gtt and I dulce asked to evaluate him for further management. Review of Systems General: Reports: 10 or more systems reviewed and unremarkable except in HPI and below Const: Reports: fatigue and malaise; Denies: fever(s) or chills Eyes: Denies: change in vision ENMT: Denies: throat pain Card: Reports: swelling of feet/ankles, dyspnea on exertion and orthopnea; Denies: chest pain Resp: Reports: dyspnea; Denies: hemoptysis GI: Denies: abdominal pain, diarrhea, hematochezia or melena : Denies: flank pain or hematuria Musc: Denies: neck pain Skin/Breast: Denies: rash Neuro: Denies: headache(s) Psych: Denies: anxiety Endo: Denies: polyuria See/Lymph: Denies: easy bruising, petechiae or purpura All/Imm: Denies: urticaria Medications/Allergies Home Medications Medication Instructions Recorded Confirmed Last Taken Type aspirin 81 mg tablet,delayed 81 mg PO DAILY 12/26/19 12/24/21 12/23/21 08:00 History release (Adult Aspirin Regimen) atorvastatin 20 mg tablet 20 mg PO DAILY 90 Days #90 tab 01/11/21 12/24/21 12/23/21 08:00 Rx clopidogrel 75 mg tablet 75 mg PO DAILY 90 Days #90 tab 02/11/21 12/24/21 12/23/21 08:00 Rx glimepiride 4 mg tablet 4 mg PO BID 90 Days #180 tab 08/10/21 12/24/21 12/23/21 17:00 Rx levothyroxine 112 mcg tablet 112 mcg PO DAILY #90 tab 08/10/21 12/24/21 12/23/21 07:00 Rx metformin 1,000 mg tablet 1,000 mg PO BID tab 11/22/21 12/24/21 12/23/21 17:00 History nitroglycerin 0.4 mg sublingual 0.4 mg SUBLINGUAL Q5M #30 tab 12/02/21 12/24/21 Unknown Rx tablet tamsulosin 0.4 mg capsule 0.4 mg PO QDAY #30 cap 12/14/21 12/24/21 12/23/21 08:00 Rx carvedilol 6.25 mg tablet 6.25 mg PO BID 12/18/21 12/24/21 12/23/21 20:00 History albuterol sulfate 90 mcg/actuation 2 inh INHALATION Q8H PRN #8.5 g 12/21/21 Unknown Rx aerosol inhaler lisinopril 10 mg tablet 10 mg PO DAILY 30 Days #30 tab 12/23/21 12/24/21 12/23/21 08:00 Rx bumetanide 1 mg tablet 1 mg PO DAILY 12/24/21 12/24/21 12/23/21 08:00 History furosemide 40 mg tablet 40 mg PO DAILY 12/24/21 12/24/21 Unknown History potassium chloride 20 mEq 40 meq PO BID 12/24/21 12/24/21 12/23/21 20:00 History tablet,extended release sitagliptin 100 mg tablet (Januvia) 100 mg PO DAILY 12/24/21 12/24/21 Unknown History Allergies Allergy/AdvReac Type Severity Reaction Status Date / Time No Known Allergies Allergy Verified 12/24/21 12:35 Current Medications Generic Name Dose Route Start Last Admin Trade Name Carola PRN Reason Stop Dose Admin Aspirin 81 mg 12/24/21 09:00 12/24/21 08:02 Aspirin 81 Mg Ec Tablet PO 81 mg DAILY THOMAS Administration Atorvastatin Calcium 20 mg 12/24/21 09:00 12/24/21 08:01 Atorvastatin 40 Mg Tablet PO 20 mg DAILY THOMAS Administration Carvedilol 6.25 mg 12/24/21 09:00 12/24/21 08:04 Carvedilol 6.25 Mg Tablet PO 6.25 mg BID THOMAS Administration Clopidogrel Bisulfate 75 mg 12/24/21 09:00 12/24/21 08:02 Clopidogrel 75 Mg Tablet PO 75 mg DAILY THOMAS Administration Famotidine 20 mg 12/24/21 09:00 12/24/21 08:00 Famotidine 20 Mg Tablet PO 20 mg BID THOMAS Administration Heparin Sodium/Sodium Chloride 25,000 unit in 500 mls @ 0 mls/hr 12/24/21 00:45 12/24/21 06:43 Heparin Drip IV 11.4 unit/kg/hr .Q0M THOMAS 21 mls/hr Titration Protocol Per Protocol Insulin Human Lispro 0 unit 12/24/21 08:00 12/24/21 08:00 Insulin Lispro 100 Unit/1 Ml SUBCUT Not Given WM&BEDTIME [facility] Protocol Levothyroxine Sodium 112 mcg 12/24/21 09:00 12/24/21 08:04 Levothyroxine 112 Mcg Tablet PO 112 mcg DAILY THOMAS Administration Lisinopril 10 mg 12/24/21 09:00 12/24/21 08:04 Lisinopril 10 Mg Tablet PO 10 mg DAILY THOMAS Administration Tamsulosin HCl 0.4 mg 12/24/21 01:15 12/24/21 08:04 Tamsulosin 0.4 Mg Capsule PO 0.4 mg DAILY THOMAS Administration PFSH Acute PFSH: Medical History (Updated 12/24/21 @ 18:52 by Cherry Toscano MD) Acquired hypothyroidism Acute renal failure Atrial fibrillation Atrial fibrillation, new onset Cardiomyopathy CHF (congestive heart failure) Diabetes Gross hematuria Hematuria Hypercholesteremia Hypertension Hypothalamic hypothyroidism Shortness of breath Surgical History History of coronary angioplasty History of hand surgery Family History Father , AT AGE 83 Heart disease Mother , AT AGE 80 Heart disease Social History Smoking and tobacco status: never smoked Alcohol intake: never Marital status: Current occupational status: retired History of recent travel: No Vitals/I&O/Wt Last Vital Signs Temp 98.3 F 12/24/21 01:34 Pulse 100 12/24/21 08:49 Resp 16 12/24/21 08:49 BP 123/66 12/24/21 07:10 Pulse Ox 98 12/24/21 08:49 12/23/21 12/24/21 12/24/21 22:59 06:59 14:59 Intake Total 293.302 / 293.302 Output Total 200 / 200 Balance 93.302 / 93.302 Weight last 48 hrs Weight 213 lb 8 oz Weight 203 lb Physical Exam Narrative: Gen: NAD Neck/HEENT: Mild pallor, no icterus; No JVD appreciated RS: CTAB/L, No wheezing, rales CVS: S1, S2 regular; No murmur, rub or gallop Ext: No edema, cyanosis ; cool feet SENIOR NET DEVELOPER: awake, oriented, Data : 12/24/21 06:07 12/24/21 06:07 A&P Assessment and plan (1) Non-ST elevation [place] (NSTEMI): continue ASA, plavix, heparin gtt, statin and beta barry -No chest pain. EKG with sinus rhythm. Q wave in II,III, aVF with ST depression in V4-V 6. ST depression in V5-V6 and and T wave inversion in I, aVL. Poor anterior R wave progression. -I will plan for cardiac cathetarization in morning provided renal function remains stable. Status: Acute (2) CHF (congestive heart failure): On life vest -continue current meds Status: Acute (3) Hypertension: Status: Acute Qualifiers: Hypertension type: essential hypertension Qualified Code(s): I10 - Essential (primary) hypertension (4) Hypercholesteremia: Status: Acute (5) Diabetes: Status: Acute Qualifiers: Diabetes mellitus type: type 2 Diabetes mellitus terminal operator insulin use: without long-term use Diabetes mellitus complication status: with hyperglycemia Qualified Code(s): E11.65 - Type 2 diabetes mellitus with hyperglycemia Plan CAD s/p stents Bradycardia: no recurrence, HR in 60's Hypothyroidism Anemia Leucocytosis COVID-19 PNA Thank you for aloowing me to participate in patient's care. Please feel free to call with questions or concerns. Coding Level of Care Code New Pt Acute Motion Picture Set Grip for Chg Fwd Patient Type New History Comprehensive Exam Comprehensive Medical Decision Making High Complexity Diagnoses Non-ST elevation [place] (NSTEMI) I21.4 CHF (congestive heart failure) I50.9 Hypertension I10 Hypertension type: essential hypertension Hypercholesteremia E78.00 Diabetes E11.65 Diabetes mellitus type: type 2 Diabetes mellitus terminal operator insulin use: without terminal operator use Diabetes mellitus complication status: with hyperglycemia
[2021-12-24 11:01] LABS: Glucose Point of Care 172 mg/dL (70-110)
[2021-12-24] MEDS: insulin lispro 100 unit/1 mL SUBCUT ×3 (11:32→21:39)
[2021-12-24] MEDS: sodium chloride 0.9% 500 ML 75 ML IV (11:33)
--- NOTE | 2021-12-24 12:27 | P.PN_ITS ---
Subjective Subjective: Patient was seen and examined this morning, he is complaining of, significant weakness, he is also saying that he is extremely short of breath even with minimal exertion, and this has progressively worsened over a couple of months. Currently he denies any chest pain.His other vitals and labs have been reviewed. Medications: Medication Review Details: Generic Name Dose Route Start Last Admin Trade Name Carola PRN Reason Stop Dose Admin Aspirin 81 mg 12/24/21 09:00 12/24/21 08:02 Aspirin 81 Mg Ec Tablet PO 81 mg DAILY THOMAS Administration Atorvastatin Calci um 20 mg 12/24/21 09:00 12/24/21 08:01 Atorvastatin 40 Mg Tablet PO 20 mg DAILY THOMAS Administration Carvedilol 6.25 mg 12/24/21 09:00 12/24/21 08:04 Carvedilol 6.25 Mg Tablet PO 6.25 mg BID THOMAS Administration Clopidogrel Bisulf ate 75 mg 12/24/21 09:00 12/24/21 08:02 Clopidogrel 75 M g Tablet PO 75 mg DAILY THOMAS Administration Famotidine 20 mg 12/24/21 09:00 12/24/21 08:00 Famotidine 20 Mg Tablet PO 20 mg BID THOMAS Administration Heparin Sodium/Sod ium Chloride 25,000 unit in 50 0 mls @ 0 mls/hr 12/24/21 00:45 12/24/21 06:43 Heparin Drip IV 11.4 unit/kg/hr .Q0M THOMAS 21 mls/hr Titration Protocol Per Protocol Sodium Chloride 500 mls @ 75 mls/ hr 12/24/21 11:00 12/24/21 11:33 Sodium Chloride 0.9% IV 75 mls/hr .Q6H40M THOMAS Administration Insulin Human Lisp ro 0 unit 12/24/21 08:00 12/24/21 11:32 Insulin Lispro 1 00 Unit/1 Ml SUBCUT 2 unit WM&BEDTIME THOMAS Administration Protocol Levothyroxine Sodi um 112 mcg 12/24/21 09:00 12/24/21 08:04 Levothyroxine 11 2 Mcg Tablet PO 112 mcg DAILY THOMAS Administration Lisinopril 10 mg 12/24/21 09:00 12/24/21 08:04 Lisinopril 10 Mg Tablet PO 10 mg DAILY THOMAS Administration Non-Formulary Medi cation 400 mg 12/24/21 09:00 12/24/21 10:01 Magnesium Oxide [Magox] PO Not Given BID [facility] Tamsulosin HCl 0.4 mg 12/24/21 01:15 12/24/21 08:04 Tamsulosin 0.4 M g Capsule PO 0.4 mg DAILY THOMAS Administration Vitals/I&O/Wt Last Vital Signs Temp 98.3 F 12/24/21 01:34 Pulse 66 12/24/21 11:37 Resp 17 12/24/21 11:37 BP 123/66 12/24/21 11:37 Pulse Ox 96 12/24/21 11:37 12/23/21 12/24/21 12/24/21 22:59 06:59 14:59 Intake Total 293.302 / 293.302 Output Total 200 / 200 Balance 93.302 / 93.302 Weight last 48 hrs Weight 96.842 kg Weight 92.079 kg Physical Exam Const: COMMON NORMALS: patient oriented x3 HENMT: COMMON NORMALS: normocephalic and atraumatic HEAD & SCALP: normocephalic and atraumatic Chest: COMMONS NORMALS: normal inspection of the chest and normal palpation of entire chest wall CHEST: Yes Symmetrical chest wall rise Resp: COMMON NORMALS: normal respiratory effort, No retractions, No use of accessory muscles and clear to auscultation bilaterally EFFORT & INSPECTION: Yes symmetric chest movement AUSCULTATION: clear to auscultation bilaterally Cardio: COMMON NORMALS: regular rate, regular rhythm, S1 normal heart sound present, S2 normal heart sound present, No gallops present (Cardio), No murmurs present (Cardio), No rub (Cardio) and Peripheral pulses 2+ throughout RATE: regular rate RHYTHM: regular rhythm HEART SOUNDS: S1 normal heart sound present and S2 normal heart sound present PERIPHERAL PULSES: Peripheral pulses 2+ throughout GI: COMMON NORMALS: Normal to inspection, nondistended, normoactive bowel sounds present, Soft to palpation, non-tender, No hepatosplenomegaly present and no masses AUSCULTATION: Yes normoactive bowel sounds PALPATION: Yes Soft to palpation and Yes No hepatosplenomegaly present RECTAL EXAM: Yes deferred Extremity: COMMON NORMALS: no clubbing, cyanosis or edema and no pedal edema Neuro: COMMON NORMALS: patient oriented x3 Data : 12/24/21 06:07 12/24/21 06:07 A&P Assessment and plan (1) Non-ST elevation MT (NSTEMI): Significant elevation in troponin. Cardiology consultation Heparin drip initiated per cardiology in the emergency department N.p.o. after midnight for possible angiogram. Patient initially presented to the emergency department with concerns of bradycardia, severe fatigue. Continue aspirin, Plavix, statin, carvedilol Status: Acute (2) COVID-19 determined by clinical diagnostic criteria: Tested positive on the 12th. He should still be in quarantine. Precautions entered. Currently not requiring oxygen. Status: Acute (3) Cardiomyopathy: Presumed ischemic cardiomyopathy. Last echocardiogram in November demonstrated EF of 20% He has a LifeVest Continue beta-barry, [place] inhibitor Work-up proposed tomorrow, angiogram Status: Acute (4) Diabetes: Sliding scale insulin Status: Acute Qualifiers: Diabetes mellitus complication status: with hyperglycemia Diabetes mellitus half-way insulin use: without laborer marine terminal use Diabetes mellitus type: type 2 Qualified Code(s): E11.65 - Type 2 diabetes mellitus with hyperglycemia Plan Assessment: #NSTEMI : Patient came in with chief complaint of worsening shortness of breath. Has elevated troponin, Has history of coronary artery disease status post stent. Recent 2D echo: Moderately increased left ventricular cavity size. Severely decreased left ventricular systolic function.? There appeared to ?be mid to distal anterior apical and distal lateral wall severe ?hypokinesis..Left ventricular ejection fraction is estimated at ?20 %. Moderately thickened mitral valve. Mild mitral annular ?calcification. No mitral valve stenosis. Severe aortic valve calcification. No aortic valve stenosis. No aortic valve regurgitation. Structurally normal tricuspid valve without significant stenosis or regurgitation. Currently patient is on ACS protocol (on heparin drip, aspirin ,statin ,Plavix , beta-barry,) Continue telemetry monitoring Cardiology has been consulted: Current plan is to do cardiac cath. Depending upon how the serum creatinine 'behaves tomorrow in the morning. #History of coronary artery disease status post stent: #HFrEF : Currently compensated: Continue to monitor intake output charting Daily weight k>4, mg >2 #CKD stage IIIb: Currently serum creatinine is at baseline. Continue to monitor BMP Avoid nephrotoxic's Intake output charting #Hypothyroidism: Continue levothyroxine #Atrial fibrillation: Currently in sinus: Heart rate is well controlled. #Diabetes: SSI, FSG , carbohydrate consistent diet #DVT prophylaxis not needed on heparin drip #Code status : full code Attestations Medical Necessity Statement*: Patient needs to be in hospital for management of NSTEMI. Coding Level of Care Code Acute Business Analyst E[employer] for g Fwd Exam Detailed Diagnoses Non-ST elevation MT (NSTEMI) I21.4 COVID-19 determined by clinical diagnostic criteria U07.1 Cardiomyopathy I42.9 Diabetes E11.65 Diabetes mellitus complication status: with hyperglycemia Diabetes mellitus half-way insulin use: without laborer marine terminal use Diabetes mellitus type: type 2
[2021-12-24 13:42] LABS: Partial Thromboplastin Time 64.4 SECONDS (23.9-36.7)
[2021-12-24 15:27] LABS: Glucose Point of Care 180 mg/dL (70-110)
[2021-12-24 19:22] LABS: Partial Thromboplastin Time 73.8 SECONDS (23.9-36.7)
--- NOTE | 2021-12-24 19:29 | PC.NURSE ---
Around 1100: Orders received from Dr. Toscano, Solar Manufacturer'S Representative. See MAR and Orders.
[2021-12-24] MEDS: heparin drip 25,000 UNIT/500 ML PREMIX 21 UNIT IV (21:40)
[2021-12-24 22:41] LABS: Glucose Point of Care 249 mg/dL (70-110)
[2021-12-25] VITALS (31 sets, daily range): BP systolic 87–112; BP diastolic 46–65; PULSE 50–68; RESP 6–25; TEMP 36.3–36.7; O2SAT 91–100
[2021-12-25 01:28] LABS: Basophils # 0.1 10^3/uL (0.0-0.1); Basophils % 0.6 %; Eosinophils # 0.2 10^3/uL (0.0-0.8); Eosinophils % 1.4 %; Hematocrit 32.4 % (42.0-52.0); Hemoglobin 10.1 g/dL (11.7-16.6); Lymphocytes # 1.2 10^3/uL (0.8-4.8); Lymphocytes % 10.4 %; Mean Corpuscular HGB Conc 31.2 g/dL (30.0-36.0); Mean Corpuscular Hemoglobin 27.1 pg (28.0-34.0); Mean Corpuscular Volume 86.9 fl (80-94); Mean Platelet Volume 11.9 fL (7.4-10.4); Monocytes # 0.8 10^3/uL (0.2-0.9); Monocytes % 6.5 %; Neutrophils # 9.06 10^3/uL (1.8-7.7); Neutrophils % 77.6 %; Nucleated Red Blood Cells % 0 %; Platelet Count 165 10^3/cmm (130-400); Red Blood Count 3.73 10^6/uL (4.1-5.3); Red Cell Distribution Width 14.6 % (12.1-15.1); White Blood Count 11.7 10^3/uL (4.0-10.0)
[2021-12-25 02:10] LABS: Partial Thromboplastin Time 60.3 SECONDS (23.9-36.7)
[2021-12-25 02:19] LABS: Alanine Aminotransferase 26 U/L (0-41); Albumin Level 3.2 g/dL (3.5-5.2); Alkaline Phosphatase 106 IU/L (40-130); Anion Gap 14.9 (5-19); Aspartate Amino Transferase 18 U/L (0-40); Blood Urea Nitrogen 40 mg/dL (8-23); Calcium 9.4 mg/dL (8.5-10.5); Carbon Dioxide 24 mmol/L (22-29); Chloride 95 mmol/L (98-107); Globulin 3.2 g/dL (1.3-4.6); Glucose 119 mg/dL (65-115); Osmolality Calculated 281 mOsm/kg (285-295); Potassium 3.9 mmol/L (3.5-5.1); Sodium 130 mmol/L (136-145); Total Protein 6.4 g/dL (6.6-8.7)
--- NOTE | 2021-12-25 06:41 | P.PN_ITS ---
Subjective Subjective: Patient was seen sitting in chair today. No chest pain but complains of shortness of breath with minimal exertion. He is able to lay down flat in bed and denies any orthopnea Heart rate heart rate did drop down to high 40s to 50s overnight. Medications: Reviewed: Yes Medication Review Details: Current Medications Acetaminophen (Acetaminophen 325 Mg Tablet) 650 mg PO Q6H PRN PRN Reason: Mild/Mod Pain Or Temp >/= 101 Albuterol/Ipratropium (Ipratropium-Albuterol 3 Ml Neb) 3 ml INHALATION Q6H PRN PRN Reason: SHORTNESS OF BREATH Aspirin (Aspirin 81 Mg Ec Tablet) 81 mg PO DAILY REPLACED BY [facility] Last Admin: 12/25/21 09:05 Dose: 81 mg Documented by: Atorvastatin Calcium (Atorvastatin 40 Mg Tablet) 20 mg PO DAILY REPLACED BY [facility] Last Admin: 12/25/21 09:05 Dose: 20 mg Documented by: Carvedilol (Carvedilol 6.25 Mg Tablet) 6.25 mg PO BID REPLACED BY [facility] Last Admin: 12/25/21 09:05 Dose: 6.25 mg Documented by: Clopidogrel Bisulfate (Clopidogrel 75 Mg Tablet) 75 mg PO DAILY REPLACED BY [facility] Last Admin: 12/25/21 09:04 Dose: 75 mg Documented by: Dextrose (Dextrose 50% Syringe 50 Ml) 25 ml IVP ONCE PRN; Protocol PRN Reason: hypoglycemia protocol Dextrose (Dextrose 50% Syringe 50 Ml) 50 ml IVP PRN PRN; Protocol PRN Reason: hypoglycemia protocol Famotidine (Famotidine 20 Mg Tablet) 20 mg PO BID REPLACED BY [facility] Last Admin: 12/25/21 09:05 Dose: 20 mg Documented by: Glucagon (Glucagon 1 Mg/Ml Inj 1 Ml) 1 mg IM ONCE PRN; Protocol PRN Reason: Adult Acute Hypoglycemia Prot. Heparin Sodium (Porcine) (Heparin 5,000 Unit/Ml Inj 1 Ml) 0 unit IV PRN PRN; Protocol PRN Reason: Heparin weight-base protocol Heparin Sodium/Sodium Chloride (Heparin Drip) 25,000 unit in 500 mls @ 0 mls/hr IV .Q0M REPLACED BY [facility]; Protocol Last Admin: 12/24/21 21:40 Dose: 11.4 unit/kg/hr, 21 mls/hr Documented by: Dextrose (D5w) 500 mls @ 100 mls/hr IV ONCE PRN; Protocol PRN Reason: Adult Acute Hypoglycemia Prot Insulin Human Lispro (Insulin Lispro 100 Unit/1 Ml) 0 unit SUBCUT WM&BEDTIME REPLACED BY [facility]; Protocol Last Admin: 12/25/21 07:16 Dose: Not Given Documented by: Levothyroxine Sodium (Levothyroxine 112 Mcg Tablet) 112 mcg PO DAILY REPLACED BY [facility] Last Admin: 12/25/21 09:05 Dose: 112 mcg Documented by: Lisinopril (Lisinopril 10 Mg Tablet) 10 mg PO DAILY REPLACED BY [facility] Last Admin: 12/24/21 08:04 Dose: 10 mg Documented by: Non-Formulary Medication (Magnesium Oxide [Magox]) 400 mg PO BID REPLACED BY [facility] Last Admin: 12/25/21 09:03 Dose: Not Given Documented by: Ondansetron HCl (Ondansetron 2 Mg/Ml Sdv 2 Ml) 4 mg IVP Q6H PRN PRN Reason: vomiting, or N/V if npo Tamsulosin HCl (Tamsulosin 0.4 Mg Capsule) 0.4 mg PO DAILY REPLACED BY [facility] Last Admin: 12/25/21 09:05 Dose: 0.4 mg Documented by: Vitals/I&O/Wt Last Vital Signs Temp 97.4 F L 12/25/21 04:02 Pulse 61 12/25/21 06:00 Resp 11 L 12/25/21 04:02 BP 106/54 12/25/21 04:02 Pulse Ox 98 12/25/21 00:07 12/24/21 12/24/21 12/25/21 14:59 22:59 06:59 Intake Total 120 / 120 1053.95 / 1173.95 Output Total 900 / 900 350 / 1250 Balance 120 / 120 153.95 / 273.95 -350 / -76.05 Weight last 48 hrs Weight 213 lb 8 oz Weight 203 lb Physical Exam Narrative: Gen: NAD Neck/HEENT: Mild pallor, no icterus; No JVD appreciated RS: CTAB/L except decreased at bases, No wheezing, rales CVS: S1, S2 regular; No murmur, rub or gallop Ext: No edema, cyanosis ; cool feet [employer]: awake, oriented, Data : 12/25/21 01:20 12/25/21 01:20 A&P Assessment and plan (1) Non-ST elevation [place] (NSTEMI): continue ASA, plavix, heparin gtt, statin and beta barry -No chest pain but significant exertional dyspnea. EKG with sinus rhythm. Q wave in II,III, aVF with ST depression in V4-V 6. ST depression in V5-V6 and and T wave inversion in I, aVL. Poor anterior R wave progression. -Echocardiogram with severely decreased LV function with LVEF of 20% and hypokinesis in anterior, apical and distal lateral liz -I will plan for cardiac cathetarization later this morning. Risks and benefits were discussed with the patients. Possible complications inc luding risk of hematoma, infection, heart attack, stroke and , coronary perforation, arrhythmia, cardiac tamponade in urgent CABG were discussed with the patient as well. -Patient and his voiced their understanding and they are agreeable to proceed with the same. Status: Acute (2) CHF (congestive heart failure): On life vest at home. -continue current meds Status: Acute (3) Hypertension: Status: Acute Qualifiers: Hypertension type: essential hypertension Qualified Code(s): I10 - Essential (primary) hypertension (4) Hypercholesteremia: Status: Acute (5) Diabetes: Status: Acute Qualifiers: Diabetes mellitus complication status: with hyperglycemia Diabetes mellitus chcf insulin use: without chcf use Diabetes mellitus type: type 2 Qualified Code(s): E11.65 - Type 2 diabetes mellitus with hyperglycemia Plan CAD s/p stents Bradycardia: no recurrence, HR in 60's Hypothyroidism Anemia Leucocytosis COVID-19 PNA Thank you for aloowing me to participate in patient's care. Please feel free to call with questions or concerns. Attestations Medical Necessity Statement*: Needs hospital stay for NSTEMI and CHF Coding Level of Care Code Established Pt Acute Tank Carpenter for Chg Fwd Patient Type Established History Comprehensive Exam Comprehensive Medical Decision Making High Complexity Diagnoses Non-ST elevation [place] (NSTEMI) I21.4 CHF (congestive heart failure) I50.9 Hypertension I10 Hypertension type: essential hypertension Hypercholesteremia E78.00 Diabetes E11.65 Diabetes mellitus complication status: with hyperglycemia Diabetes mellitus adjunct faculty for medical terminology insulin use: without chcf use Diabetes mellitus type: type 2
[2021-12-25 07:14] LABS: Glucose Point of Care 130 mg/dL (70-110)
[2021-12-25 07:57] LABS: Partial Thromboplastin Time 76.3 SECONDS (23.9-36.7)
--- NOTE | 2021-12-25 07:59 | PM.PN ---
Subjective Subjective: Patient was seen and examined this morning, deny any chest pain,was seen sitting in the chair,saturating well on room air, scr has remained stable at baseline, currently due for CAG. Medications: Medication Review Details: Generic Name Dose Route Start Last Admin Trade Name Carola PRN Reason Stop Dose Admin Aspirin 81 mg 12/24/21 09:00 12/24/21 08:02 Aspirin 81 Mg Ec Tablet PO 81 mg DAILY THOMAS Administration Atorvastatin Calci um 20 mg 12/24/21 09:00 12/24/21 08:01 Atorvastatin 40 Mg Tablet PO 20 mg DAILY THOMAS Administration Carvedilol 6.25 mg 12/24/21 09:00 12/24/21 08:04 Carvedilol 6.25 Mg Tablet PO 6.25 mg BID THOMAS Administration Clopidogrel Bisulf ate 75 mg 12/24/21 09:00 12/24/21 08:02 Clopidogrel 75 M g Tablet PO 75 mg DAILY THOMAS Administration Famotidine 20 mg 12/24/21 09:00 12/24/21 08:00 Famotidine 20 Mg Tablet PO 20 mg BID THOMAS Administration Heparin Sodium/Sod ium Chloride 25,000 unit in 50 0 mls @ 0 mls/hr 12/24/21 00:45 12/24/21 06:43 Heparin Drip IV 11.4 unit/kg/hr .Q0M THOMAS 21 mls/hr Titration Protocol Per Protocol Sodium Chloride 500 mls @ 75 mls/ hr 12/24/21 11:00 12/24/21 11:33 Sodium Chloride 0.9% IV 75 mls/hr .Q6H40M THOMAS Administration Insulin Human Lisp ro 0 unit 12/24/21 08:00 12/24/21 11:32 Insulin Lispro 1 00 Unit/1 Ml SUBCUT 2 unit WM&BEDTIME THOMAS Administration Protocol Levothyroxine Sodi um 112 mcg 12/24/21 09:00 12/24/21 08:04 Levothyroxine 11 2 Mcg Tablet PO 112 mcg DAILY THOMAS Administration Lisinopril 10 mg 12/24/21 09:00 12/24/21 08:04 Lisinopril 10 Mg Tablet PO 10 mg DAILY THOMAS Administration Non-Formulary Medi cation 400 mg 12/24/21 09:00 12/24/21 10:01 Magnesium Oxide [Magox] PO Not Given BID [facility] Tamsulosin HCl 0.4 mg 12/24/21 01:15 12/24/21 08:04 Tamsulosin 0.4 M g Capsule PO 0.4 mg DAILY THOMAS Administration Vitals/I&O/Wt Last Vital Signs Temp 97.4 F L 12/25/21 04:02 Pulse 61 12/25/21 06:00 Resp 11 L 12/25/21 04:02 BP 106/54 12/25/21 04:02 Pulse Ox 98 12/25/21 00:07 12/24/21 12/25/21 12/25/21 22:59 06:59 14:59 Intake Total 1053.95 / 1173.95 Output Total 900 / 900 350 / 1250 Balance 153.95 / 273.95 -350 / -76.05 Weight last 48 hrs Weight 96.842 kg Weight 92.079 kg Physical Exam Const: COMMON NORMALS: patient oriented x3 HENMT: COMMON NORMALS: normocephalic and atraumatic HEAD & SCALP: normocephalic and atraumatic Eye: COMMON NORMALS: no scleral icterus GENERAL EYE: appearance normal, both eyes and all related structures Chest: COMMONS NORMALS: normal inspection of the chest and normal palpation of entire chest wall CHEST: Yes Symmetrical chest wall rise Resp: COMMON NORMALS: normal respiratory effort, No retractions, No use of accessory muscles and clear to auscultation bilaterally EFFORT & INSPECTION: Yes symmetric chest movement AUSCULTATION: clear to auscultation bilaterally Cardio: COMMON NORMALS: regular rate, regular rhythm, S1 normal heart sound present, S2 normal heart sound present, No gallops present (Cardio), No murmurs present (Cardio), No rub (Cardio) and Peripheral pulses 2+ throughout RATE: regular rate RHYTHM: regular rhythm HEART SOUNDS: S1 normal heart sound present and S2 normal heart sound present PERIPHERAL PULSES: Peripheral pulses 2+ throughout GI: COMMON NORMALS: Normal to inspection, nondistended, normoactive bowel sounds present, Soft to palpation, non-tender, No hepatosplenomegaly present and no masses AUSCULTATION: Yes normoactive bowel sounds PALPATION: Yes Soft to palpation and Yes No hepatosplenomegaly present RECTAL EXAM: Yes deferred : COMMON NORMALS: Yes no CVA tenderness BLADDER/KIDNEY EXAM: Yes no CVA tenderness Back/Pelvis: COMMON NORMALS: no CVA tenderness Extremity: COMMON NORMALS: no clubbing, cyanosis or edema and no pedal edema Neuro: COMMON NORMALS: patient oriented x3 Data : 12/25/21 01:20 12/25/21 01:20 A&P Assessment and plan (1) Non-ST elevation [place] (NSTEMI): Significant elevation in troponin. Cardiology consultation Heparin drip initiated per cardiology in the emergency department N.p.o. after midnight for possible angiogram. Patient initially presented to the emergency department with concerns of bradycardia, severe fatigue. Continue aspirin, Plavix, statin, carvedilol Status: Acute (2) COVID-19 determined by clinical diagnostic criteria: Tested positive on the . He should still be in quarantine. Precautions entered. Currently not requiring oxygen. Status: Acute (3) Cardiomyopathy: Presumed ischemic cardiomyopathy. Last echocardiogram in November demonstrated EF of 20% He has a LifeVest Continue beta-barry, [place] inhibitor Work-up proposed tomorrow, angiogram Status: Acute (4) Diabetes: Sliding scale insulin Status: Acute Qualifiers: Diabetes mellitus complication status: with hyperglycemia Diabetes mellitus watermelon harvesting supervisor insulin use: without mcfp use Diabetes mellitus type: type 2 Qualified Code(s): E11.65 - Type 2 diabetes mellitus with hyperglycemia Plan Assessment: #NSTEMI : Patient came in with chief complaint of worsening shortness of breath. Has elevated troponin, Has history of coronary artery disease status post stent. Recent 2D echo: Moderately increased left ventricular cavity size. Severely decreased left ventricular systolic function.? There appeared to ?be mid to distal anterior apical and distal lateral wall severe ?hypokinesis..Left ventricular ejection fraction is estimated at ?20 %. Moderately thickened mitral valve. Mild mitral annular ?calcification. No mitral valve stenosis. Severe aortic valve calcification. No aortic valve stenosis. No aortic valve regurgitation. Structurally normal tricuspid valve without significant stenosis or regurgitation. Currently patient is on ACS protocol (on heparin drip, aspirin ,statin ,Plavix , beta-barry,) Continue telemetry monitoring Aprreciate Cardiology input: #History of coronary artery disease status post stent: #HFrEF : Currently compensated: Continue to monitor intake output charting Daily weight k>4, mg >2 #CKD stage IIIb: Currently serum creatinine is at baseline. Continue to monitor BMP Avoid nephrotoxic's Intake output charting #Hypothyroidism: Continue levothyroxine #Atrial fibrillation: Currently in sinus: Heart rate is well controlled. #Diabetes: SSI, FSG , carbohydrate consistent diet #DVT prophylaxis not needed on heparin drip #Code status : full code Attestations Medical Necessity Statement*: Patient needs to be in hospital for the management of NSTEMI. Time Spent in Patient Care: Greater than 35 minutes (>than 50% of time spent in counselling and/or direct pt care on unit). Coding Level of Care Code Acute Exhibitions Curator for Chg Fwd Exam Comprehensive Diagnoses Non-ST elevation [place] (NSTEMI) I21.4 COVID-19 determined by clinical diagnostic criteria U07.1 Cardiomyopathy I42.9 Diabetes E11.65 Diabetes mellitus complication status: with hyperglycemia Diabetes mellitus mcfp insulin use: without watermelon harvesting supervisor use Diabetes mellitus type: type 2
--- NOTE | 2021-12-25 08:10 | PC.NURSE ---
pt oob, sitting in chair
--- NOTE | 2021-12-25 08:13 | PC.NURSE ---
recieved report from shift mgr. pt sitting up in chair, appears comfortable, no needs identified at this time. pt npo for possible cath today.
[2021-12-25] MEDS: clopidogrel 75 mg Tablet PO (09:04)
[2021-12-25] MEDS: tamsulosin 0.4 mg Capsule PO (09:05)
[2021-12-25] MEDS: aspirin 81 mg EC Tablet PO (09:05)
[2021-12-25] MEDS: levothyroxine 112 mcg Tablet PO (09:05)
[2021-12-25] MEDS: carvedilol 6.25 mg Tablet PO ×2 (09:05→17:22)
[2021-12-25] MEDS: atorvastatin 40 mg Tablet 20 MG PO (09:05)
[2021-12-25] MEDS: famotidine 20 mg Tablet PO ×2 (09:05→17:03)
--- NOTE | 2021-12-25 09:41 | XACV_ITS ---
Exam Room: [facility] Ht: 175 cm Wt: 97 kg BSA: 2.20 m2 Gender: Male : 1945 Any Known Allergies: No known allergies Exam Priority: Routine Procedure(s): Procedure Description: Diagnostic procedure Procedure Description: Left Heart Catheterization Procedure Description: Coronary Angiography Diagnostic Cath Status: Urgent Diagnostic Findings * Distal Right Coronary Artery: total occlusion, JUSTINO: 0 flow. PDA/PLV receive collateral blood flow from LCx. * INDICATION: NSTEMI/ LV dysfunction. * Left Main has no disease. * Proximal Left Anterior Descending: total occlusion, JUSTINO: 0 flow. * Proximal Right Coronary Artery: subtotal occlusion, JUSTINO: 1 flow. * Proximal Circumflex: severe 90% stenosis, JUSTINO: 3 flow. * Coronary angiography shows right dominance. Conclusions 1. Severe mulivessel Coronary artery disease with chronic total occlusion of the proximal LAD (occluded stent), severe stenosis of the Left circumflex artery and total occlusion of the RCA with collateral blood supply from LCx territory. Recommendations * Continue aspirin. * Hold plavix in anticipation of CABG. * CT surgery consult for evaluation for CABG. If patient not a CABG candidate, can discuss high risk PCI of LCX/LAD. * Continue heparin gtt for now. Interventional RX Recommendation: CABG Diagnostic RX Recommendation: CABG Anticoagulation: Heparin Pressures Phase:Rest AO : 87 / 48 ( 64 ) @ 9:10:00 AM 85 / 46 ( 62 ) @ 9:11:00 AM 98 / 53 ( 70 ) @ 9:19:00 AM 99 / 54 ( 71 ) @ 9:19:00 AM LV : 96 / 14 / 32 @ 9:18:00 AM 96 / 13 / 31 @ 9:19:00 AM Valves Phase:DefaultPhase AV : 0.0 @ 11:30:22 AM AV Mean Gradient: 0.0 @ 11:30:22 AM Clinical Evaluation EBL: 5mL-10mL Procedural Details Procedure Consent Obtained. Current Diagnosis : NSTEMI. Pre-Procedure Time Out. Identified patient by full name and date of as verbalized by the patient/guarantor. Does the consent match the physician's order: Yes. Accurate & Complete Informed Consent: Yes. Inpatient/Outpatient History & Physical on Chart: Yes. If H&P is completed, is and addenduem needed: No; If yes, is the addendum complete: N/A. Visualize and Verify Site with Patient/Guarantor: N/A. Relevant Radiology Images available: Yes. Pre-op teaching completed and patient verbalized understanding. The risks, benefits, and alternatives of sedation and/or procedure were discussed by physician. The patient agrees to continue. Cherry Maya RN circulating. Dr. Toscano scrubbing in with Dr. Gunter. Procedure started. [place] Clinical Fraility Score: 4: Vulnerable. Forming Tube Selector Indications: Cardiomyopathy. Chest Pain Symptom Assessment: Asymptomatic. Correct patient, site and procedure confirmed by cath team. Current diagnosis: NSTEMI. PERRLA. Strong, equal hand alignment technician bilaterally. Lungs clear x 5 lobes. IV Site on Arrival: 20 gauge in the left anticubital. IV Fluids: 0.9% NaCl at KVO. 0 mL infused prior to fish hatchery laborer. Pre Procedural Pulses: bilateral radial was 2+. Pre Procedural Pulses: bilateral dorsalis pedis was 1+. Oxygen started at 2liters/min via nasal canula. right radial was prepped with chloroprep then draped in the usual sterile fashion. right groin was prepped with chloroprep then draped in the usual sterile fashion. Physician notified. Admit Source: In Patient. Physician arrived. Physician scrubbed in. Immediate Pre-Procedure Time Out. Correct Patient: Yes; Correct Procedure: Yes; Correct Site: Yes; Correct Patient Position: Yes; Correct Supplies: Yes; Dried Flammable Prep: Yes; Blood Products Available: n/a. Lidocaine 1% infiltrated to the right radial. Baseline sample Acquired. HR: 47 BPM. Cherry Maya RN circulating procedure. Dr Toscano scrubbed in with Dr Gunter to assist in performing procedure. Arterial access obtained. A 5 greek TIG catheter in over wire. Multiple views taken of left coronary artery. Catheter redirected to the RCA. Multiple views taken of right coronary artery. EDP Sample taken: LV 96/14,32; HR: 58 BPM; SpO2: Off%. Pullback taken: LV 96/13,31; AO 98/53(70); Mean: 0mmHg, Peak to Peak: 0mmHg, SEP: 6sec/min; HR: 57 BPM; SpO2: Off%. Catheter out. Physician review of cine films. Physician scrubbed out. A TR Band was successful obtaining hemostatsis at the Right Radial artery insertion site. Post Procedure: Pulses reassessed and unchanged. PERRLA. Strong, equal hand alignment technician bilaterally. No VTE prophylaxis required. Medication's Wasted: Lidocaine 1% = 18 mL. Medication's Wasted: Heparin = 3500 u. Medication's Wasted: Nitro = 49.8 mg. Post-op diagnosis: Severe Multi Vessel CAD. Total IV fluids: 19 mL. Complications: none. Estimated blood loss: 5mL-10mL. Responsiveness - Normal response to verbal stimuli; alert and oriented, PERRLA. Airway - Unaffected, no intervention required; spontaneous ventilation. Circulation: W/N/L, pulses unchanged. Nausea/Vomiting: No. Procedure completed. Patient transferred by wheelchair to 1st floor. Vital chart was stopped. Access Site Site: Right Radial artery Sheath Size: 6 Fr Hemostasis Method: TR Band Hemostasis Success: Successful Procedure Medications Start: 10:56 AM Stop: 10:56 AM Medication: Versed Amount: 1 mg Route: I.V. Start: 11:07 AM Stop: 11:07 AM Medication: Nitrogylcerin Amount: 200 mcg Route: I.A. Start: 11:09 AM Stop: 11:09 AM Medication: Heparin Amount: 2500 units Route: I.V. I, the attending physician, have reviewed and verified all procedure medications. Yes, all medications given per verbal order History/Risk Factors Hypertension: Yes Dyslipidemia: Yes Peripheral Arterial Disease (PAD): No Myocardial Infarction (OK): No Obesity: Yes Renal Disease: No Prior Interventions PCI: Yes CABG: No Valve Surgery: No Date of PCI: 11/06/2013 Report Signatures Finalized by Vamshi Gunter MD on 12/26/2021 01:02 PM
[2021-12-25] MEDS: diphenhydrAMINE 50 mg Capsule PO (09:51)
--- NOTE | 2021-12-25 10:49 | W.PM.OPSUD ---
Surgery/Procedure H&P Update DATE OF PROCEDURE: December 25, 2021 DATE H&P PERFORMED: 12/25/21 CHANGES TO PREVIOUS DOCUMENTATION: None PRIMARY INDICATION FOR PROCEDURE: NSTEMI, cardiomyopathy PLANNED PROCEDURE: Left heart cathetarization PATIENT REASSESSED PRIOR TO SEDATION, WITH NO CHANGE NOTED: Yes PHYSICAL EXAM: alert, oriented x 3, clear to auscultation bilaterally (except diminished at bases) and regular rate & rhythm AIRWAY EVAL/ANESTHESIA PLAN: normal airway, ASA III, Risks, benefits & alternatives of sedation and/or procedure discussed and Patient agrees to continue as planned
[2021-12-25] MEDS: sodium chloride 0.9% 1,000 ML 75 ML IV (12:00)
[2021-12-25 12:20] LABS: Glucose Point of Care 111 mg/dL (70-110)
--- NOTE | 2021-12-25 12:30 | P.PN_ITS ---
Subjective Subjective: He underwent LHC and was found to have px occluded LAD, occluded RCA and severely stenotic LCx lesion with L to R collaterals. Medications: Reviewed: Yes Vitals/I&O/Wt Last Vital Signs Temp 98.1 F 12/25/21 08:00 Pulse 58 L 12/25/21 12:00 Resp 15 12/25/21 12:00 BP 99/61 12/25/21 12:00 Pulse Ox 97 12/25/21 08:09 12/24/21 12/25/21 12/25/21 22:59 06:59 14:59 Intake Total 1053.95 / 1173.95 200 / 200 Output Total 900 / 900 350 / 1250 250 / 250 Balance 153.95 / 273.95 -350 / -76.05 -50 / -50 Weight last 48 hrs Weight 213 lb 8 oz Weight 203 lb Physical Exam Narrative: Gen: NAD Neck/HEENT: Mild pallor, no icterus; No JVD appreciated RS: CTAB/L except decreased at bases, No wheezing, rales CVS: S1, S2 regular; No murmur, rub or gallop Ext: No edema, cyanosis ; cool feet FLESHING MACHINE OPERATOR: awake, oriented Const: COMMON NORMALS: alert Resp: COMMON NORMALS: clear to auscultation bilaterally (except diminished at bases) AUSCULTATION: clear to auscultation bilaterally (except diminished at bases) Neuro: SENSORIUM/ORIENTATION: Yes alert Data : 12/25/21 01:20 12/25/21 01:20 A&P Assessment and plan (1) Non-ST elevation [place] (NSTEMI): continue ASA, plavix, heparin gtt, statin and beta barry -No chest pain but significant exertional dyspnea. EKG with sinus rhythm. Q wave in II,III, aVF with ST depression in V4-V 6. ST depression in V5-V6 and and T wave inversion in I, aVL. Poor anterior R wave progression. -Echocardiogram with severely decreased LV function with LVEF of 20% and hypokinesis in anterior, apical and distal lateral liz -s/p cardiac cathetarization and was found to have multivessel CAD -After long discussion with patient and family, decision was made to transfer patient to [facility] for viability study f/b CABG vs high risk PCI. -Dr. Wetzel accepted the patient. Status: Acute (2) CHF (congestive heart failure): -HFrEF; ischemic cardiomyopathy -On life vest at home. -continue current meds Status: Acute (3) Hypertension: Status: Acute Qualifiers: Hypertension type: essential hypertension Qualified Code(s): I10 - Essential (primary) hypertension (4) Hypercholesteremia: Status: Acute (5) Diabetes: Status: Acute Qualifiers: Diabetes mellitus complication status: with hyperglycemia Diabetes mellitus minister of religion insulin use: without senior living use Diabetes mellitus type: type 2 Qualified Code(s): E11.65 - Type 2 diabetes mellitus with hyperglycemia Plan CAD s/p stents Bradycardia: no recurrence, HR in 60's Hypothyroidism Anemia Leucocytosis COVID-19 PNA Thank you for aloowing me to participate in patient's care. Please feel free to call with questions or concerns. Attestations Medical Necessity Statement*: Awaiting bed at [place] after NSTEMI and multivessel CAD on Cath. Coding Level of Care Code Acute Agriculture Research Director for g Fwd Exam Expanded Problem Focused Diagnoses Non-ST elevation [place] (NSTEMI) I21.4 CHF (congestive heart failure) I50.9 Hypertension I10 Hypertension type: essential hypertension Hypercholesteremia E78.00 Diabetes E11.65 Diabetes mellitus complication status: with hyperglycemia Diabetes mellitus minister of religion insulin use: without minister of religion use Diabetes mellitus type: type 2
[2021-12-25 15:54] LABS: Partial Thromboplastin Time 44.1 SECONDS (23.9-36.7)
[2021-12-25] MEDS: insulin lispro 100 unit/1 mL SUBCUT ×2 (17:03→20:03)
--- NOTE | 2021-12-25 17:23 | PC.NURSE ---
coreg given at dr lozada request knowing that sbp as been in the 80-90's with a map around 60.
[2021-12-25] MEDS: heparin 5,000 unit/mL INJ 1 mL 5000 UNIT SUBCUT (18:00)
--- NOTE | 2021-12-25 18:15 | PC.NURSE ---
dr cantu notified that pt hr in the 40's. This is a change. No new orders recieved.
[2021-12-25] MEDS: hyDRALAzine 10 mg Tablet PO (18:21)
--- NOTE | 2021-12-25 18:35 | PC.NURSE ---
pt looking very pale, mottled and lethargic. Dr Purdy aware. No new orders at this time. PT on monitor and checked on frequently
--- NOTE | 2021-12-25 19:41 | PC.NURSE ---
Dr. Lugo notified of blood pressure of 87/50. Ordered to not given PO Hydralazine that is due at this time.
[2021-12-25 19:57] LABS: Glucose Point of Care 259 mg/dL (70-110)
[2021-12-25 19:57] LABS: Glucose Point of Care 321 mg/dL (70-110)
--- NOTE | 2021-12-25 20:16 | PC.NURSE ---
Patient placed on 2 L NC. Will continue to monitor. Awaiting room at [place].
--- NOTE | 2021-12-25 22:46 | PC.NURSE ---
Report given to RN at [facility]. Patient left via ground ambulance.
== END 2021-12-25 22:40 | disposition short-term general hospital (02) | DRG 280 ==
LOC: ER 23:36 → CSU 12-24 00:16
PROVIDERS: Internal Medicine; Internal Medicine Cardiovascular Disease; Admitting Provider Internal Medicine; Emergency Provider Emergency Medicine; PCP Family Medicine; Visit Provider Internal Medicine
PROC: B2111ZZ Fluoroscopy of Multiple Coronary Arteries using Low Osmolar Contrast (ICD-10-PCS; principal; 2021-12-25 11:00)
DX: I21.4 Non-ST elevation (NSTEMI) myocardial infarction (principal); U07.1 COVID-19; J12.82 Pneumonia due to coronavirus disease 2019; T82.855A Stenosis of coronary artery stent, initial encounter; I13.0 Hypertensive heart and chronic kidney disease with heart failure and stage 1 through stage 4 chronic kidney disease, or unspecified chronic kidney disease; I50.22 Chronic systolic (congestive) heart failure; Y71.1 Therapeutic (nonsurgical) and rehabilitative cardiovascular devices associated with adverse incidents; I25.10 Atherosclerotic heart disease of native coronary artery without angina pectoris; N18.32 Chronic kidney disease, stage 3b; E11.22 Type 2 diabetes mellitus with diabetic chronic kidney disease; E03.9 Hypothyroidism, unspecified; I48.91 Unspecified atrial fibrillation; I25.5 Ischemic cardiomyopathy; E11.65 Type 2 diabetes mellitus with hyperglycemia; E78.00 Pure hypercholesterolemia, unspecified; D64.9 Anemia, unspecified
CPT/HCPCS: 36415; 36416; 71045; 80048; 80053; 82962; 83880; 84484; 85025; 85610; 85730; 93005; 93452; 93458; 96365; 96372; 96375; 96376; 97161; 97530; 99285; C1769; C1887; C1894; J1644; J1815; J2250; J3010; J3490; J7030; J7040; J7050; Q0163; Q9967